=== PATIENT | female | born 1945 | race Caucasian/White ===

== ENCOUNTER 2022-04-08 13:55 | Outpatient (RCR) | payer MEDICARE, SELFPAY ==
--- NOTE | 2022-04-06 10:26 | ONC.NURNOTE ---
Authorization: User: Marie Swensondiegosahilsoledad Date: 12/22/21 08:45 Type: Eligibility Determination Note... Request received from [facility] for prior authorization of Robert [id number]. Patient carries Medicare as primary insurance. Per CMS.gov no prior authorization is required for Robert. Services are based on medical necessity and follows Medicare guidelines.
[2022-04-08 14:09] VITALS: BP 148/75; PULSE 71; RESP 16; TEMP 36.1; O2SAT 98
[2022-04-08] MEDS: VEDOLIZUMAB 300 MG, TUBING SECONDARY 1 EACH in 0.9 % SODIUM CHLORIDE 250 ml 250 ML 510 MG IVPB (14:35)
== END 2022-04-26 23:59 | disposition home or self-care (01) ==
LOC: CCIC 13:55
PROVIDERS: PCP Family Medicine; Visit Provider Clinical Nurse Specialist
DX: K51.90 Ulcerative colitis, unspecified, without complications (principal)
CPT/HCPCS: 96365; J3380; J7050

== ENCOUNTER 2022-04-20 08:54 | Outpatient (CLI) | payer MEDICARE, SELFPAY ==
[2022-04-20 16:16] LABS: Albumin* 4.4 g/dL (3.3-5.0)
[2022-04-20 16:17] LABS: Chloride* 101 mmol/L (96-114); Sodium* 139 mmol/L (135-149)
[2022-04-20 16:19] LABS: Aspartate Amino Transferase* 34 U/L (12-35); Bilirubin Total* 0.2 mg/dL (0.1-1.5); Carbon Dioxide* 32 mmol/L (20-32); Creatinine* 1.3 mg/dL (0.5-1.5); Estimated Glomerular Filt Rate 42 ml/min
[2022-04-20 16:20] LABS: Alanine Aminotransferase* 31 U/L (4-35); Alkaline Phosphatase* 70 U/L (40-150); Blood Urea Nitrogen* 49 mg/dL (7-30); Calcium* 9.9 mg/dL (8.4-10.6); Glucose* 113 mg/dL (60-115); Total Protein* 7.2 g/dL (6.0-8.3)
== END 2022-04-20 08:55 | disposition home or self-care (01) ==
PROVIDERS: PCP Family Medicine; Visit Provider Family Medicine
DX: E03.9 Hypothyroidism, unspecified (principal); N18.30 Chronic kidney disease, stage 3 unspecified; I10 Essential (primary) hypertension; R73.03 Prediabetes
CPT/HCPCS: 80053; 84443

== ENCOUNTER 2022-06-09 14:29 | Outpatient (CLI) | payer MEDICARE, SELFPAY ==
[2022-06-09 17:47] LABS: Chloride* 102 mmol/L (96-114); Potassium* 4.6 mmol/L (3.6-5.1); Sodium* 140 mmol/L (135-149)
[2022-06-09 17:50] LABS: Blood Urea Nitrogen* 44 mg/dL (7-30); Calcium* 9.5 mg/dL (8.4-10.6); Carbon Dioxide* 29 mmol/L (20-32); Creatinine* 1.4 mg/dL (0.5-1.5); Estimated Glomerular Filt Rate 39 ml/min; Glucose* 116 mg/dL (60-115)
== END 2022-06-09 14:30 | disposition home or self-care (01) ==
LOC: NFLDREF 14:30
PROVIDERS: PCP Family Medicine; Visit Provider Family Medicine
DX: I10 Essential (primary) hypertension (principal); N18.32 Chronic kidney disease, stage 3b
CPT/HCPCS: 80048

== ENCOUNTER 2022-06-16 10:14 | Outpatient (CLI) | payer MEDICARE, SELFPAY | END 2022-06-16 10:15 | disposition home or self-care (01) | LOC: NFLDREF 06-26 09:49 | PROVIDERS: PCP Family Medicine; Visit Provider Family Medicine | DX: Z20.822 Contact with and (suspected) exposure to COVID-19 (principal) | CPT/HCPCS: 87635 ==

== ENCOUNTER 2022-06-17 07:14 | Day surgery (SDC) | payer MEDICARE, SELFPAY ==
[2022-06-17] VITALS (29 sets, daily range): BP systolic 103–175; BP diastolic 63–90; PULSE 55–86; RESP 11–18; TEMP 35.3–36.4; O2SAT 91–97; BMI 28.0
[2022-06-17] MEDS: SODIUM CHLORIDE 0.9 % (FLUSH) 10 ML SYRINGE IVF (08:25)
[2022-06-17] MEDS: CELECOXIB 200 MG CAPSULE PO ×2 (08:25→20:18)
--- NOTE | 2022-06-17 08:28 | SUR.PREOP ---
Patient took home acetaminophen at 0600 06/17. No additional doses given preoperatively. Patient declined 10 mg Oxycodone due to previously taking on an empty stomach resulting in an upset stomach.
[2022-06-17] MEDS: LACTATED RINGERS 1000 ML 1,000 ML 100 ML IV ×2 (08:30→11:15)
[2022-06-17] MEDS: MIDAZOLAM HCL 1 MG/ML inj IVP (09:32)
[2022-06-17] MEDS: fentaNYL 100 MCG/2 ML inj IVP (09:32)
--- NOTE | 2022-06-17 09:41 | SUR.PREOP ---
TIME?OUT:?0930 PT/RN/MDA?VERIFICATION?OF?SURGICAL?SITE,?PROCEDURE,?AND?CONSENT OBTAINED?PRIOR?TO?INVASIVE?PROCEDURE.
[2022-06-17] MEDS: CEFAZOLIN 2 GM in 0.9 % SODIUM CHLORIDE Mini-bag 100 ML IVPB ×2 (10:10→16:29)
--- NOTE | 2022-06-17 10:24 | CRLHL7_ITS ---
For Patients: As a result of the Cures Act, medical imaging exams and procedure reports are released immediately into your electronic medical record. You may view this report before your referring provider. If you have questions, please contact your health care provider. INDICATION: Post operative left total knee arthroplasty TECHNIQUE: Knee radiograph 2 views left COMPARISON: None FINDINGS: Bone: No acute fractures or aggressive bone lesions are identified. Joint: The patient is status post a total knee arthroplasty with patellar resurfacing. No significant knee effusion is seen. Soft tissue: Anterior skin, subcutaneous gas and joint gas are present from recent surgery. No radiopaque foreign bodies are seen. IMPRESSION: 1. There is an unremarkable postoperative appearance of the knee arthroplasty. Dictated by: Suresh Ahn MD @ 06/17/2022 13:42:10 (Electronically Signed)
--- NOTE | 2022-06-17 10:46 | P.NB_ITS ---
Nerve Block Nerve Block Time Seen by Provider: 09:30 Date Seen: 06/17/22 Type of block requested by surgeon for post-operative analgesia: adductor canal Time out performed: Yes Verification of patient name: Yes Verification of date of : Yes Site marking: site marked Name of person performing procedure: Dereck Continuous monitoring Was continuous monitoring of O2 sat, B/P, vehicle monitor technician, recorded every 15 minutes?: Yes Procedure Checklist: sterile prep, needles and gloves Ultrasound guided. Images saved: Yes Medications given in 5ml increments after negative aspiration: Ropivicaine %: 0.5 mL: 20 Needle gauge: 20 Decadron (mg): 10 Precedex (mcg): 25 Patient tolerated procedure well: Yes Additional comments: Needle noted adjacent to nerve Block Charges Block Charge (with Pro Fee): Femoral Nerve Use of Ultrasound Machine for Block: Yes- US Guidance/pain block
--- NOTE | 2022-06-17 10:46 | P.NB_ITS ---
Nerve Block Nerve Block Time Seen by Provider: 09:30 Date Seen: 06/17/22 Type of block requested by surgeon for post-operative analgesia: geniculars Side: left Time out performed: Yes Verification of patient name: Yes Verification of date of : Yes Site marking: site marked Name of person performing procedure: Dereck Continuous monitoring Was continuous monitoring of O2 sat, B/P, monitor car operator, recorded every 15 minutes?: Yes Procedure Checklist: sterile prep, needles and gloves Medications given in 5ml increments after negative aspiration: Ropivicaine %: 0.5 mL: 9 Needle gauge: 25 Patient tolerated procedure well: Yes Block Charges Block Charge (with Pro Fee): Genicular Nerve Block Use of Ultrasound Machine for Block: No
--- NOTE | 2022-06-17 11:37 | P.ORPRC_ITS ---
Procedure Note Date of procedure: 06/17/22 Procedure: PREOPERATIVE DIAGNOSIS: 1. Left knee osteoarthritis, primary, severe POSTOPERATIVE DIAGNOSIS: 1. Left knee osteoarthritis, primary, severe PROCEDURE: 1. Left total knee arthroplasty SURGEON: Billy Gilbert MD. PRODUCT SUPPORT SPECIALIST: Germán Ribeiro PA-C - Of note, a skilled car rental sales assistant was critical for this case to aid in patient positioning, tissue retraction, limb manipulation/positioning, and closure. ANESTHESIA: Spinal anesthetic EBL: 50ml IMPLANTS: DePuy J&J all cemented TKA - Attune PS femur size 5 narrow, size 3 tibia, 5 mm poly spacer, 35 mm patella TOURNIQUET: 90 min at 300 torr COMPLICATIONS: None evident INDICATIONS: The patient is a pleasant 76-year-old female who has experienced severe left knee pain and difficulty bearing weight. Workup included x-rays which revealed severe osteoarthrosis in the knee. Given the deformity, the dysfunction, and the pain, as well as the failure of nonoperative management, recommendation was made for surgery. FINDINGS: Full-thickness extreme patellofemoral cartilage loss, significant medial compartment cartilage loss as well into a lesser degree lateral compartment. Tricompartmental osteophytes. Large Bustamante cyst. DESCRIPTION OF PROCEDURE: Following a thorough discussion of risks, benefits, and alternatives consent was obtained and the left knee was marked. The patient was brought to the operating room and placed supine on the operating table. Induction of anesthesia was undertaken. 1 g IV Ancef and 1 g tranexamic acid was administered within 1 hr of incision preoperatively. Proper time-out was performed identifying proper patient, site, procedure. The operative extremity was prepped and draped in the appropriate sterile fashion using ChloraPrep after the patient was positioned supine with all bony prominences well padded. A longitudinal, anterior, midline skin incision was made starting approximately 3cm proximal to the superior pole of the patella and advanced distal to the tibial tubercle. A median parapatellar arthrotomy was created. A medial subperiosteal sleeve was created with knife, solorzano elevator and curved osteotome. The retropatellar fatpad was resected and the synovium in the suprapatellar pouch excised to visualize the anterior femoral cortex. Femoral preparation was performed via an intramedullary guide. Step drill allowed access into the femoral canal. The distal cutting guide was placed with 6 ? of valgus and 10 mm cut on the distal femur. Femur was sized using a posterior referencing guide in 3? of external rotation. This found have a best fit with the sizing noted above. The 4 in 1 cutting block was then placed, and the distal femur shaped accordingly. The box cut was then created and the trial implant inserted to confirm appropriate fit. We turned our attention to the proximal tibia. Extramedullary guide was utilized for cutting with the goal of being 90 degree cut from the mechanical axis of the tibia in the varus/valgus plane utilizing tibial crest as the prima ry alignment. Initially a 3 mm resection was performed from the medial tibial plateau. Ultimately, balancing was achieved in both flexion and extension in both varus and valgus. The knee was able to achieve full extension as well comfortably. The patella was initially measured and found have a thickness of 19 mm. It was resected back to approximately 14 mm. It was sized to be a best fit with as noted above. This was drilled, trial placed. All trials were placed and found to have an excellent stability and balance. At this stage, trial implants were removed, the knee was thoroughly irrigated with normal saline, and the cement was mixed. After irrigation, the knee was thoroughly dried, and cement placed, with the real tibial and femoral implants placed along with the patella. Trial poly spacer was placed and confirmed to have excellent range of motion and full extension, and the real poly spacer opened and inserted. All extra cement was removed, and a 3 min Betadine soak performed. Finally, a final irrigation round with normal saline was performed. Closure performed with 0 PDS and #0 Stratafix for the quad tendon/retinaculum. 2-0 Vicryl/Stratafix for the subcutaneous and 4-0 Monocryl for subcuticular closure. Dressings were applied and the patient was awoken from anesthesia after the tourniquet deflated and transferred the PACU in stable condition. A skilled car rental sales assistant was critical for this case to aid in patient positioning, tissue retraction, bone exposure, limb manipulation/positioning, patient safety, and closure. PLAN: 1. Weight bear as tolerated operative extremity. 2. 23 hr perioperative antibiotics. 3. Ice. 4. PT/OT consults for ambulation assistance/mobility education. 5. Social work consult for discharge planning. 6. DVT prophylaxis with at SCDs, Benjy Hose, and aspirin twice daily.
--- NOTE | 2022-06-17 12:29 | W.ANESCHARGE ---
Anesthesia Charges Start Date/Time Anesthesia Start Date: 06/17/22 Anesthesia Start Time: 09:54 Stop Date/Time Anesthesia Stop Date: 06/17/22 Anesthesia Stop Time: 12:28 Summary Emergency: No Extremes of Age: Over 68-CPT [id number]
--- NOTE | 2022-06-17 12:38 | W.ANESCHARGE ---
Anesthesia Charges Start Date/Time Anesthesia Start Date: 06/17/22 Anesthesia Start Time: 09:54 Stop Date/Time Anesthesia Stop Date: 06/17/22 Anesthesia Stop Time: 12:28 Summary Emergency: No Extremes of Age: Over 68-CPT [id number]
--- NOTE | 2022-06-17 14:34 | P.IMCN_ITS ---
Date of Consult Patient: [facility] Patient Consult date: 06/17/22 Requesting Physician: Orthopedics Primary Care Provider: Namrata Burgess MD Consult Narrative Reason for consult: Postop: HTN, ulcerative colitis, renal lithiasis, hypothyroidism Narrative: Petra Paris is a 76 year old woman who underwent an elective left total knee arthroplasty today with Dr. Billy Gilbert for management of severe, end- stage left osteoarthritis. No obvious perioperative complications. Estimated blood loss 50 mL. Patient denies chest heaviness, pressure, tightness, or pain. Denies dyspnea at rest, paroxysmal nocturnal dyspnea, orthopnea. Denies syncope or near-syncope. Denies orthostasis. Denies palpitations or fluttering. Denies epigastric pain or any other abdominal pain. Denies dyspepsia. Denies nausea vomiting. States she is thirsty and hungry. States she has not had anything to eat or drink since yesterday. Denies fevers, rigors, diaphoresis. No recent trauma, injury, or travel. No blood loss of any sort. Bowel and bladder function are satisfactory. Denies polyuria, polydipsia, polyphagia. Denies dysuria, urgency, frequency, hematuria. Denies diarrhea or constipation. No recent focal motor neurologic deficits. Review of Systems Status of ROS: Reports: 10 or more systems reviewed and unremarkable except as noted in History and below Narrative: I reviewed the preoperative note and recommendations. Patient i ndicates she adhered to these recommendations per her primary care physician. She designates her son, Mathieu Rendon, as her power of health care attorney for health should that be required. His cell phone number is [phone]. Additionally after discussion with her about resuscitation status she indicates to me unequivocally her desire for DNR DNI resuscitation status. 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) Prediabetes (12/2016) Stage 3 chronic kidney disease (2016) Ulcerative colitis (2015) Surgical History (Updated 06/17/22 @ 14:43 by Nathaniel Anderson MD) History of appendectomy (1965) History of closure of ileostomy (10/05/19) History of colectomy (02/2018) History of colonoscopy (2016) History of hand surgery (2010) History of hysteroscopy (2015) History of repair of pyloric stenosis (1944) History of thumb surgery (2010) History of tonsillectomy History of total right knee replacement (2009) Status post left knee replacement Family History Father Prostate cancer Sister Type 2 diabetes mellitus Brother Colon cancer, Onset Age: 50 Other Bladder cancer Social History Narrative: Currently lives in with adult son , 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 [employer], 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, 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, 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 Non-smoker Rarely consumes alcohol Smoking Status: Never smoker Do you use any of these nicotine containing products: None How often do you have a drink containing alcohol: monthly or less How often do you have six or more drinks on one occasion: Never AUDIT-C Alcohol total score: 1 Non-prescribed substance use: denies use Caffeine: Yes (1 cup coffee/day) Are you using contraception or practicing any form of control: No Meds Home Medications and Allergies Home Medications Medication Instructions Recorded Confirmed Type calcium cit 250 mg-ergocalciferol 2 tab PO DAILY 04/07/22 06/17/22 History (vit D2) 2.5 mcg (100 unit) tablet (Castro-Citrate) ferrous sulfate 325 mg (65 mg 325 mg PO DAILY 04/07/22 06/17/22 History iron) tablet multivitamin 1 tab PO DAILY 04/07/22 06/17/22 History turmeric 1 cap PO DAILY 04/07/22 06/15/22 History carboxymethylcellulose sodium 0.5 1 drp ophthalmic (eye) BID PRN 05/05/22 06/17/22 History % eye drops (Refresh Tears) vedolizumab 300 mg intravenous 300 mg IV Q4W 05/05/22 06/17/22 History solution acetaminophen 650 mg 1,300 mg PO Q8H 06/15/22 06/17/22 History tablet,extended release (8 Hour Pain Reliever) levothyroxine 100 mcg capsule 100 mcg PO DAILY 06/15/22 06/17/22 History Allergies Allergy/AdvReac Type Severity Reaction Status Date / Time lisinopril Allergy Unknown Dizziness Verified 06/09/22 13:57 pneumococcal 7-valent Allergy Unknown Verified 06/17/22 13:52 conjugate to Sulfa (Sulfonamide Allergy Unknown Rash Verified 06/17/22 13:52 Antibiotics) Exam Narrative: Exam Narrative: Appears comfortable. No acute distress. Alert, oriented to self, place, time, situation. Friendly, articulate, cooperative. Mood and affect are congruent. Neck is supple. Midline trachea. No JVD, hepatojugular reflux, or carotid bruits. Lungs are clear to auscultation without wheezing, rhonchi, or rales. Heart tones with regular rhythm, normal S1-S2, without murmur, gallop, or rub. Abdomen with active bowel sounds, soft, nontender. No rebound or guarding. Extremities without edema. No focal motor neurologic deficits. Const: Vital Signs, click to edit/add: Vital Signs - 24 hr 06/17/22 08:30 06/17/22 09:30 06/17/22 09:35 Temperature 97.6 F Pulse Rate 60 61 58 L Respiratory Rate 18 16 14 Blood Pressure 151/76 H 158/74 H 161/77 H Pulse Oximetry 96 96 97 Oxygen Delivery Me thod Room Air Nasal Cannula Nasal Cannula Oxygen Flow Rate 3 5 06/17/22 09:40 06/17/22 09:45 06/17/22 09:50 Temperature Pulse Rate 61 63 62 Respiratory Rate 12 12 12 Blood Pressure 135/69 130/72 129/66 Pulse Oximetry 93 93 96 Oxygen Delivery Me thod Nasal Cannula Nasal Cannula Nasal Cannula Oxygen Flow Rate 5 5 3 06/17/22 12:23 06/17/22 12:45 06/17/22 12:25 Temperature 96.4 F L 96.4 F L 96.4 F L Pulse Rate 65 59 L 64 Respiratory Rate 11 L 12 12 Blood Pressure 111/63 103/69 109/65 Pulse Oximetry 95 95 94 Oxygen Delivery Me thod Nasal Cannula Nasal Cannula Oxygen Flow Rate 4 4 06/17/22 12:30 06/17/22 12:35 06/17/22 12:40 Temperature 96.4 F L 96.4 F L 96.4 F L Pulse Rate 59 L 58 L 59 L Respiratory Rate 12 12 12 Blood Pressure 111/65 118/66 121/71 Pulse Oximetry 94 94 95 Oxygen Delivery Me thod Nasal Cannula Nasal Cannula Nasal Cannula Oxygen Flow Rate 4 4 4 06/17/22 12:50 06/17/22 12:55 06/17/22 13:00 Temperature 96.4 F L 96.4 F L 96.4 F L Pulse Rate 58 L 56 L 59 L Respiratory Rate 15 14 14 Blood Pressure 123/71 128/64 131/74 Pulse Oximetry 94 92 91 Oxygen Delivery Me thod Nasal Cannula Room Air Room Air Oxygen Flow Rate 4 0 0 06/17/22 13:05 Temperature 96.8 F L Pulse Rate 60 Respiratory Rate 16 Blood Pressure 136/73 Pulse Oximetry 92 Oxygen Delivery Me thod Room Air Oxygen Flow Rate 0 Imaging Left knee x-ray: Attestation: I have reviewed the pertinent imaging results. Radiologist's impression: 1. There is an unremarkable postoperative appearance of the knee arthroplasty. Assessment and Plan Assessment and plan (1) Status post left knee replacement: Problem comment: 06/17/2022, Dr. Billy Gilbert, [facility] Status: Acute (2) Osteoarthritis of left knee: Status: Acute (3) Hypertension: Status: Acute (4) Generalized osteoarthritis: Problem comment: uses gabapentin Status: Acute (5) Hypothyroidism: Status: Acute (6) Osteoporosis: Status: Acute (7) Prediabetes: Problem comment: cleared up now Status: Chronic (8) Stage 3 chronic kidney disease: Status: Chronic (9) Ulcerative colitis: Status: Acute (10) Urolithiasis: Status: Acute (11) Obstructive sleep apnea syndrome: Problem comment: Mild. See scanned Accu[facility] Sleep Study dated 05/27/16 Status: Acute Plan 1. I reviewed my impression with the patient. 2. Answered the patient's questions to her satisfaction. 3. Agree with perioperative IV antibiotic prophylaxis. 4. Agree with postoperative venous thromboembolism prophylaxis. 5. Continue with her supportive medications, including her amlodipine for treating her hypertension, her levothyroxine for treating her primary hypothyroidism, and a potassium citrate use for treating her urolithiasis.. 6. The vedolizumab she takes every 4 weeks to treat the ulcerative colitis was last administered about 2 weeks ago and does not need to be readministered until about 2 weeks from now. 7. No need to monitor her blood sugars. 8. Patient agreeable to above stated plans and recommendations. 9. Will follow the patient while she is in the hospital under the care of the orthopedic surgery team.
[2022-06-17] MEDS: LACTATED RINGERS 1000 ML 1,000 ML 75 ML IV (14:45)
[2022-06-17] MEDS: GABAPENTIN 100 MG CAPSULE PO (15:27)
[2022-06-17] MEDS: OXYCODONE 5 MG TABLET PO ×3 (15:32→22:30)
[2022-06-17] MEDS: ACETAMINOPHEN 500 MG TABLET 1000 MG PO (17:48)
--- NOTE | 2022-06-17 18:39 | PC.NURSE ---
Shift Summary: Patient pleasant and cooperative. Up with one assist, walker and gait belt. Arrived to room @ 1322. Vitals stable and WNL. pain well controlled with continuous ice and medication. Tolerating regular diet, denies nausea. Dressing over left knee dry and intact.
[2022-06-17] MEDS: GABAPENTIN 100 MG CAPSULE 200 MG PO (20:18)
[2022-06-17] MEDS: SENNOSIDES 1 TAB TABLET 2 TAB PO (20:18)
[2022-06-17] MEDS: ASPIRIN 81 MG TABLET EC PO (20:18)
[2022-06-17] MEDS: HYDROmorphone 0.5 mg/0.5 ml inj IVP (21:05)
[2022-06-18] MEDS: ACETAMINOPHEN 500 MG TABLET 1000 MG PO ×2 (00:29→06:30)
[2022-06-18] MEDS: OXYCODONE 5 MG TABLET PO ×6 (00:30→13:19)
[2022-06-18] MEDS: CEFAZOLIN 2 GM in 0.9 % SODIUM CHLORIDE Mini-bag 100 ML IVPB ×2 (00:30→08:05)
[2022-06-18 03:00] VITALS: BP 167/79; PULSE 79; RESP 20; TEMP 36.5; O2SAT 95
--- NOTE | 2022-06-18 05:28 | PC.NURSE ---
[id number]: Patient cooperative with cares. Rates pain 4-7/10. PRN Dilaudid and Oxycodone administered for relief. Cryo cuff continuous. Dressing to L.knee C/D/I. CMS intact. A1,walkerGB. Denies N/V. Eating and voiding. Patient expressed concern about going home w/o proper support. SW to follow up today.
[2022-06-18] MEDS: LEVOTHYROXINE 100 MCG TABLET PO (06:30)
[2022-06-18 06:59] LABS: Basophils Percent Auto 0.1 % (0.0-3.0); Eosinophils Percent Auto 0.1 % (0.0-7.0); Hematocrit 40.2 % (33.0-51.0); Hemoglobin* 13.2 gm/dL (12.0-16.0); Immature Granulocytes Abs Auto 0.02 K/uL (0.00-0.30); Lymphocytes Percent Auto 6.8 % (20-44); Mean Corpuscular HGB Conc 33 gm/dL (32-36); Mean Corpuscular Hemoglobin 31 pg (26-34); Mean Corpuscular Volume 95 fL (80-100); Monocytes Percent Auto 10.8 % (0.0-11.0); Platelet Count* 182 K/uL (140-440); RDW Coefficient of Variation % 12.9 % (11.5-15.5); Red Blood Count 4.24 m/uL (4.00-5.20); White Blood Count* 12.49 K/uL (4.50-11.00)
[2022-06-18 07:00] VITALS: BP 143/89; PULSE 73; RESP 20; TEMP 36.4; O2SAT 96
[2022-06-18 07:00] LABS: Slide Review Reflex No
[2022-06-18 07:08] LABS: Potassium* 5.1 mmol/L (3.6-5.1); Sodium* 138 mmol/L (135-149)
[2022-06-18 07:11] LABS: Blood Urea Nitrogen* 32 mg/dL (7-30); Est. Creatinine Clearance* 38.35; Estimated Glomerular Filt Rate 58 ml/min
[2022-06-18] MEDS: POTASSIUM CITRATE 10 MEQ TABLET.ER 20 MEQ PO (07:54)
[2022-06-18] MEDS: AMLODIPINE 5 MG TABLET PO (08:15)
[2022-06-18] MEDS: ASPIRIN 81 MG TABLET EC PO (08:15)
[2022-06-18] MEDS: CELECOXIB 200 MG CAPSULE PO (08:15)
[2022-06-18] MEDS: GABAPENTIN 100 MG CAPSULE PO (08:16)
[2022-06-18] MEDS: SODIUM CHLORIDE 0.9 % (FLUSH) 10 ML SYRINGE 5 ML IVF (08:17)
[2022-06-18] MEDS: SENNOSIDES 1 TAB TABLET 2 TAB PO (08:17)
--- NOTE | 2022-06-18 09:53 | CRLHL7_ITS ---
For Patients: As a result of the Cures Act, medical imaging exams and procedure reports are released immediately into your electronic medical record. You may view this report before your referring provider. If you have questions, please contact your health care provider. INDICATION: s/p TKR yesterday. pain/swelling COMPARISON: None. TECHNIQUE: A compression venous ultrasound exam was performed of the left lower extremity using navarro-scale imaging, color Doppler and spectral Doppler analysis. FINDINGS: Sonographic imaging of the left lower extremity demonstrates normal compressibility and color Doppler venous blood flow within the common femoral vein, deep femoral vein, and the proximal greater saphenous vein. Within the thigh, the femoral vein is patent and compressible. At a lower level, the popliteal and posterior tibial veins also show normal compressibility and color Doppler venous blood flow. Limited imaging of the contralateral groin demonstrates a normal spectral waveform and color Doppler venous blood flow within the right common femoral vein. IMPRESSION: Normal venous ultrasound exam. No evidence of deep vein thrombosis within the left lower extremity. Dictated by Parvez Brooks MD @ 06/18/2022 11:47:16 AM (Electronically Signed)
--- NOTE | 2022-06-18 09:56 | PM.ORPN ---
Subjective Subjective Date Seen: 06/18/22 Principal diagnosis: Status postoperative day 1 left total knee Interval history: Patient reports doing well. No acute events over night. Pain managed with scheduled /PRN medications and ice. Reports that both of her lower extremities were numb after surgery, making it difficult for her to get out of bed. Right has improved, there is still some decreased motor in the left lower extremity residual from the nerve block. DVT prophylaxis 81 mg aspirin by mouth twice daily, bilateral knee high Benjy stockings, and SCDs. Reports dizziness when up and walking. Denies fevers, chills, aches, N/V, CP, SOB/CAON, tachycardia. Comments that she does not feel that she would be successful at home. She has had multiple conversations with social work prior to surgery regarding long term stay postoperatively. She says that while she lives with her adult son, they were cannot available to help her. She says she would pay [id number] for the long term. Ortho Exam Narrative Exam Narrative: General: Well-developed, well-nourished, A&Ox 3, no apparent acute distress. Pulmonary: Breathing pattern regular, even, without apparent distress or audible wheeze present. -Patient appears comfortable; no apparent acute distress -Alert and oriented times 3 -Operative knee moderately swollen, thigh-high moderately swollen, calf moderately swollen; soft, supple tissues; no ecchymosis; no erythematous streaking Warmth appropriate -Surgical dressing clean, dry, intact; no drainage -left calf is quite tender to palpation, squeeze, especially mid gastroc proximal lower leg; there is moderate swelling; no, edema, erythema, discoloration, warmth, or palpable cords -2+ DP/PT pulses, intact dermatomes and myotomes distally (5/5 strength) Const Vital Signs, click to edit/add: Vital Signs - 24 hr 06/17/22 12:23 06/17/22 12:45 06/17/22 12:25 Temperature 96.4 F L 96.4 F L 96.4 F L Pulse Rate 65 59 L 64 Pulse Rate [Right Pulse Oximeter] Respiratory Rate 11 L 12 12 Blood Pressure 111/63 103/69 109/65 Blood Pressure [Left Arm] Pulse Oximetry 95 95 94 Oxygen Delivery Method Nasal Cannula Nasal Cannula Oxygen Flow Rate 4 4 06/17/22 12:30 06/17/22 12:35 06/17/22 12:40 Temperature 96.4 F L 96.4 F L 96.4 F L Pulse Rate 59 L 58 L 59 L Pulse Rate [Right Pulse Oximeter] Respiratory Rate 12 12 12 Blood Pressure 111/65 118/66 121/71 Blood Pressure [Left Arm] Pulse Oximetry 94 94 95 Oxygen Delivery Method Nasal Cannula Nasal Cannula Nasal Cannula Oxygen Flow Rate 4 4 4 06/17/22 12:50 06/17/22 12:55 06/17/22 13:00 Temperature 96.4 F L 96.4 F L 96.4 F L Pulse Rate 58 L 56 L 59 L Pulse Rate [Right Pulse Oximeter] Respiratory Rate 15 14 14 Blood Pressure 123/71 128/64 131/74 Blood Pressure [Left Arm] Pulse Oximetry 94 92 91 Oxygen Delivery Method Nasal Cannula Room Air Room Air Oxygen Flow Rate 4 0 0 06/17/22 13:05 06/17/22 13:45 06/17/22 14:30 Temperature 96.8 F L 95.6 F L 97.5 F L Pulse Rate 60 Pulse Rate [Right Pulse Oximeter] 57 L 56 L Respiratory Rate 16 18 18 Blood Pressure 136/73 Blood Pressure [Left Arm] 145/75 H 154/81 H Pulse Oximetry 92 95 95 Oxygen Delivery Method Room Air Room Air Room Air Oxygen Flow Rate 0 06/17/22 13:22 06/17/22 14:00 06/17/22 14:15 Temperature 95.6 F L 95.6 F L 95.7 F L Pulse Rate 58 L Pulse Rate [Right Pulse Oximeter] 59 L 55 L Respiratory Rate 18 18 18 Blood Pressure Blood Pressure [Left Arm] 145/75 H 153/84 H 154/67 H Pulse Oximetry 94 95 Oxygen Delivery Method Room Air Room Air Room Air Oxygen Flow Rate 06/17/22 15:00 06/17/22 15:30 06/17/22 16:30 Temperature 95.9 F L 96.1 F L 96 F L Pulse Rate Pulse Rate [Right Pulse Oximeter] 66 68 67 Respiratory Rate 16 18 18 Blood Pressure Blood Pressure [Left Arm] 159/82 H 175/83 H 145/84 H Pulse Oximetry 94 94 96 Oxygen Delivery Method Room Air Room Air Room Air Oxygen Flow Rate 06/17/22 17:30 06/17/22 18:32 06/17/22 19:00 Temperature 96.2 F L 97.1 F L 97.6 F Pulse Rate Pulse Rate [Right Pulse Oximeter] 66 86 70 Respiratory Rate 16 18 18 Blood Pressure Blood Pressure [Left Arm] 148/79 H 147/90 H 147/71 H Pulse Oximetry 95 94 93 Oxygen Delivery Method Room Air Room Air Room Air Oxygen Flow Rate 06/17/22 19:30 06/17/22 23:00 06/18/22 03:00 Temperature 97.6 F 97.5 F L 97.7 F Pulse Rate Pulse Rate [Right Pulse Oximeter] 70 78 79 Respiratory Rate 18 18 20 Blood Pressure Blood Pressure [Left Arm] 147/71 H 153/74 H 167/79 H Pulse Oximetry 93 94 95 Oxygen Delivery Method Room Air Room Air Room Air Oxygen Flow Rate 0 0 06/18/22 07:00 06/18/22 07:00 Temperature 97.5 F L Pulse Rate Pulse Rate [Right Pulse Oximeter] 73 73 Respiratory Rate 20 20 Blood Pressure Blood Pressure [Left Arm] 143/89 H Pulse Oximetry 96 Oxygen Delivery Method Room Air Oxygen Flow Rate 0 Assessment and Plan Assessment and plan (1) Status post left knee replacement: Problem details: 1. POD left Total Knee Arthroplasty Status: Acute (2) Osteoarthritis of left knee: Status: Acute (3) Hypertension: Status: Acute (4) Generalized osteoarthritis: Problem details: uses gabapentin Status: Acute (5) Hypothyroidism: Status: Acute (6) Osteoporosis: Status: Acute (7) Prediabetes: Problem details: cleared up now Status: Chronic (8) Stage 3 chronic kidney disease: Status: Chronic (9) Ulcerative colitis: Status: Acute (10) Urolithiasis: Status: Acute (11) Obstructive sleep apnea syndrome: Problem details: Mild. See scanned [facility] Sleep Study dated 05/27/16 Status: Acute Plan - Complete 23 hour perioperative antibiotics. - PT/OT consult for education and assistance. - Social work consult for discharge planning - I spoke with them, they will meet with her today to discuss nursing placement. Likely will not receive coverage for this as there is no clear medical need for her to remain in the hospital postoperatively. The patient understands that she would pay out of pocket if she chooses short-term stay in a long term post hospital discharge - Prescribed analgesics as needed - DVT prophylaxis: 81 mg aspirin by mouth twice daily, bilateral knee high Benjy Hose stockings and SCDs - Due to the amount of pain within his left calf and swelling, we will order an ultrasound today to assess for DVT. - Anticipation is for discharge to SNF versus home in the next day or to if the patient remains medically stable, pain is controlled, and they are safe with mobilization.
--- NOTE | 2022-06-18 10:03 | PM.DS1 ---
DS: Providers Provider Date Seen: 06/18/22 Date of admission: med/surg recovery 06/17/22 Primary care physician: Namrata Burgess MD Consults: 06/17/22 13:44 Consult to Occupational Therapy [CONS] Routine Comment: Reason(s) for OT Consult:: ADLs Prior to Discharge Any Restrictions?:: See Comment Comment: See nursing activity order for any restrictions. Consult to Physical Therapy [CONS] Routine Comment: Ambulate in the hector today. Reason(s) for PT Consult:: TKA [place] Protocol POD#0 Any Restrictions?:: See Comment Comment: See nursing activity order for any restrictions. Consult to Physician [CONS] Routine Comment: Consulting Provider: Hospitalists Has provider been notified: No Consult to Erp Developer [CONS] Routine Comment: Reason for Consult:: Discharge Planning Needs Attending Physician on discharge: Billy Gilbert MD Date of Discharge: 06/18/22 DS: Diagnosis Discharge Diagnosis (1) Osteoarthritis of left knee: Status: Acute Problem details: Status post left total knee arthroplasty DS: Summary Hospital Course Hospital Course: The patient has a history of left knee osteoarthritis, primary, severe. After appropriate preoperative evaluation, the patient underwent left total knee arthroplasty. Postoperatively given anticoagulation for deep vein thrombosis prophylaxis. They progressed to PT/OT and were felt ready and prepared for discharge to SNF for further care and assistance. She has appropriate pain medication and anticoagulation medications Rx to her preferred pharmacy. Furthermore, U/S of the left lower extremity was negative for DVT. Status at Discharge Functional status at discharge: uses cane/walker Overall status at discharge: patient is not back to baseline Time Spent with Patient Time attestation: Total time spent providing and/or coordinating discharge services: Time spent: Greater than 30 minutes Exam Const: Vital Signs, click to edit/add: Vital Signs - 24 hr 06/17/22 12:23 06/17/22 12:45 06/17/22 12:25 Temperature 96.4 F L 96.4 F L 96.4 F L Pulse Rate 65 59 L 64 Pulse Rate [Right Pulse Oximeter] Respiratory Rate 11 L 12 12 Blood Pressure 111/63 103/69 109/65 Blood Pressure [Le ft Arm] Pulse Oximetry 95 95 94 Oxygen Delivery Me thod Nasal Cannula Nasal Cannula Oxygen Flow Rate 4 4 06/17/22 12:30 06/17/22 12:35 06/17/22 12:40 Temperature 96.4 F L 96.4 F L 96.4 F L Pulse Rate 59 L 58 L 59 L Pulse Rate [Right Pulse Oximeter] Respiratory Rate 12 12 12 Blood Pressure 111/65 118/66 121/71 Blood Pressure [Le ft Arm] Pulse Oximetry 94 94 95 Oxygen Delivery Me thod Nasal Cannula Nasal Cannula Nasal Cannula Oxygen Flow Rate 4 4 4 06/17/22 12:50 06/17/22 12:55 06/17/22 13:00 Temperature 96.4 F L 96.4 F L 96.4 F L Pulse Rate 58 L 56 L 59 L Pulse Rate [Right Pulse Oximeter] Respiratory Rate 15 14 14 Blood Pressure 123/71 128/64 131/74 Blood Pressure [Le ft Arm] Pulse Oximetry 94 92 91 Oxygen Delivery Me thod Nasal Cannula Room Air Room Air Oxygen Flow Rate 4 0 0 06/17/22 13:05 06/17/22 13:45 06/17/22 14:30 Temperature 96.8 F L 95.6 F L 97.5 F L Pulse Rate 60 Pulse Rate [Right Pulse Oximeter] 57 L 56 L Respiratory Rate 16 18 18 Blood Pressure 136/73 Blood Pressure [Le ft Arm] 145/75 H 154/81 H Pulse Oximetry 92 95 95 Oxygen Delivery Me thod Room Air Room Air Room Air Oxygen Flow Rate 0 06/17/22 13:22 06/17/22 14:00 06/17/22 14:15 Temperature 95.6 F L 95.6 F L 95.7 F L Pulse Rate 58 L Pulse Rate [Right Pulse Oximeter] 59 L 55 L Respiratory Rate 18 18 18 Blood Pressure Blood Pressure [Le ft Arm] 145/75 H 153/84 H 154/67 H Pulse Oximetry 94 95 Oxygen Delivery Me thod Room Air Room Air Room Air Oxygen Flow Rate 06/17/22 15:00 06/17/22 15:30 06/17/22 16:30 Temperature 95.9 F L 96.1 F L 96 F L Pulse Rate Pulse Rate [Right Pulse Oximeter] 66 68 67 Respiratory Rate 16 18 18 Blood Pressure Blood Pressure [Le ft Arm] 159/82 H 175/83 H 145/84 H Pulse Oximetry 94 94 96 Oxygen Delivery Me thod Room Air Room Air Room Air Oxygen Flow Rate 06/17/22 17:30 06/17/22 18:32 06/17/22 19:00 Temperature 96.2 F L 97.1 F L 97.6 F Pulse Rate Pulse Rate [Right Pulse Oximeter] 66 86 70 Respiratory Rate 16 18 18 Blood Pressure Blood Pressure [Le ft Arm] 148/79 H 147/90 H 147/71 H Pulse Oximetry 95 94 93 Oxygen Delivery Me thod Room Air Room Air Room Air Oxygen Flow Rate 06/17/22 19:30 06/17/22 23:00 06/18/22 03:00 Temperature 97.6 F 97.5 F L 97.7 F Pulse Rate Pulse Rate [Right Pulse Oximeter] 70 78 79 Respiratory Rate 18 18 20 Blood Pressure Blood Pressure [Le ft Arm] 147/71 H 153/74 H 167/79 H Pulse Oximetry 93 94 95 Oxygen Delivery Me thod Room Air Room Air Room Air Oxygen Flow Rate 0 0 06/18/22 07:00 06/18/22 07:00 Temperature 97.5 F L Pulse Rate Pulse Rate [Right Pulse Oximeter] 73 73 Respiratory Rate 20 20 Blood Pressure Blood Pressure [Le ft Arm] 143/89 H Pulse Oximetry 96 Oxygen Delivery Me thod Room Air Oxygen Flow Rate 0 DS: Data Data Completed and Pending Labs on day of discharge: Labs from last 24 hours 06/18/22 06/18/22 06:30 06:30 WBC 12.49 H RBC 4.24 Hgb 13.2 Hct 40.2 MCV 95 MCH 31 MCHC 33 RDW Coeff of Kelby 12.9 Plt Count 182 Neut % (Auto) 82.0 H Lymph % (Auto) 6.8 L [place] % (Auto) 10.8 Eos % (Auto) 0.1 Baso % (Auto) 0.1 Neut # (Auto) 10.20 H Lymph # (Auto) 0.80 L [place] # (Auto) 1.30 H Eos # (Auto) 0.00 Baso # (Auto) 0.00 Abs Immat Gran (auto) 0.02 Sodium 138 Potassium 5.1 BUN 32 H Creatinine 1.0 Estimated Creat Clear 38.35 Estimated GFR 58 Discharge Plan Discharge Disposition: Xfer Other Discharge Location: [facility] Discharging Surgeon: Billy Gilbert Follow-Up Appointment: 1 week PO with TOYA Prescriptions: New sennosides-docusate sodium [Senna-S] 8.6-50 mg tablet 1 - 4 tab-cap PO BID PRN (Reason: constipation) Qty: 60 0RF Rx Instructions: Hold medication if experiencing loose stools. aspirin 81 mg tablet,delayed release (DR/EC) 81 mg PO BID Qty: 60 0RF Rx Instructions: Medication to help prevent blood clots postoperatively; take TWICE daily. celecoxib 100 mg capsule 100 mg PO BID Qty: 60 0RF oxycodone 5 mg tablet 2.5 - 5 mg PO Q4-6H MDD 6 PRN (Reason: pain) Qty: 42 0RF Rx Instructions: Take as needed for postop pain: 2.5mg mild pain, 5mg moderate-severe pain; wean as tolerated. No Action amlodipine 5 mg tablet 5 mg PO DAILY Qty: 90 4RF potassium citrate 5 mEq (540 mg) tablet extended release 20 meq PO DAILY Qty: 360 3RF gabapentin 100 mg capsule 100 mg PO .ud Qty: 360 3RF Rx Instructions: 1 tablet in the morning, 1 tablet in the day, 2 tablets at bedtime carboxymethylcellulose sodium [Refresh Tears] 0.5 % drops 1 drp ophthalmic (eye) BID PRN multivitamin Tablet 1 tab PO DAILY ferrous sulfate 325 mg (65 mg iron) tablet 325 mg PO DAILY Castro-Citrate 250 mg-2.5 mcg (100 unit) tablet 2 tab PO DAILY turmeric 1 cap PO DAILY vedolizumab 300 mg recon soln 300 mg IV Q4W Rx Instructions: administer week 6 of treatment (Entivo) acetaminophen [8 Hour Pain Reliever] 650 mg tablet extended release 1,300 mg PO Q8H levothyroxine 100 mcg capsule 100 mcg PO DAILY Activity Level: Activity as Tolerated, Weight Bearing as Tolerated, Use Cane and Use Walker Activity Detail: Wound: ?Do not remove original dressing; we will remove this at first postop visit in 1 week. Only remove dressing if integrity is in question. ?No immersing wound in water; showering okay; light scrub with your hand and body soap, rinse, dab dry ?Sutures are under the skin, will dissolve; allow surgical glue to come off naturally; do not scrub the wound or apply ointments/lotions ?Call our office with any redness that streaks, excessive drainage from the wound, or wound gapping. Ice/Elevate: ?Ice as needed for swelling and discomfort (cryocuff or ice pack); elevate frequently above the heart IVETT socks: ?Wear for 1 month, remove for 1 hour 3 times per day ?These are frustrating to take on/off, but are important for blood clot prevention for 1 month after surgery Blood Clot Prevention (DVT): ?Medication: 81 mg aspirin by mouth twice daily (1 month) Driving: ?Do not drive while taking narcotic pain medication ?Anticipate 4-6 weeks no driving if operative leg is driving leg Dental: ?No elective dental work for 6 months post-op. If there is an urgent/emergent dental need, contact our office for an antibiotic prescription. Smoking/Alcohol: ?Do not smoke; do no drink alcohol especially when taking postoperative oral narcotic medication Seek Care from you Primary Care Provider if you experience the following issues in the postoperative phase and beyond: ?Bacterial infections such as: pneumonia, bacterial skin infection (cellulitis), UTI, high fever, chills unrelated to the operative body part - call your primary care physician urgently for treatment in hopes to protect your health and the metal implant. Referrals: ?PT, OT per patient preference - evaluate treat total knee arthroplasty protocol (gait training, ROM, ADLs) Follow up: ?Ortho surgeon follow-up in 6 weeks; repeat radiographs three views operative knee ?PA-C visit in 1 week *If there are any acute concerns regarding your surgery, please call our orthopedic clinic ([phone]) Discharge Diet: Regular Patient Instructions: Surgical Site Infections (DC) Forms: Work/Release Restrictions Follow-up: [facility], Physical Therapy [Other] - 06/19/22 7:30 am Namrata Burgess MD [Primary Care Provider] - (Schedule appointment as needed) Germán Ribeiro PA-C [Physician Negotiations Director] - 06/25/22 8:30 am Discharge Orders: Discharge Order (Routine); Ordered 06/18/22 Ordered By: Germán Ribeiro
[2022-06-18 11:00] VITALS: BP 138/71; PULSE 74; RESP 20; TEMP 36.6; O2SAT 95
--- NOTE | 2022-06-18 11:55 | PC.SOCIAL ---
Met with pt and son Mathieu to discuss discharge plans. Pt. is moving well but wants a SNF for short term rehab following LTKA. Pt. prefers [facility]. [facility] has a bed and can accept pt. today. Pt.'s son will transport. PAS completed #[id number].
[2022-06-18 12:33] VITALS: BP 136/73; PULSE 58; RESP 20; TEMP 36.4
--- NOTE | 2022-06-18 15:48 | PC.NURSE ---
Pt up with SBA, gait belt, and walker. Pain controlled with oxycodone per NOV. Denies chest pain, SOB, nausea. Participated in PT/OT. DC'd per pt request to [facility] for post op rehab. Cyrocuff to left knee. Bandage clean, dry, and intact. Pt DC'd to [facility] @ 1320 with son driving her to site.
--- NOTE | 2022-06-18 16:23 | P.DS_ITS ---
DS: Providers Provider Time Seen by Provider: 11:00 Date Seen: 06/18/22 Date of admission: 06/17/22 Primary care physician: Namrata Burgess MD Admitting Clinician: Billy Gilbert MD Consults: 06/17/22 13:44 Consult to Occupational Therapy [CONS] Routine Comment: Reason(s) for OT Consult:: ADLs Prior to Discharge Any Restrictions?:: See Comment Comment: See nursing activity order for any restrictions. Consult to Physical Therapy [CONS] Routine Comment: Ambulate in the hector today. Reason(s) for PT Consult:: TKA [place] Protocol POD#0 Any Restrictions?:: See Comment Comment: See nursing activity order for any restrictions. Consult to Physician [CONS] Routine Comment: Consulting Provider: Hospitalists Has provider been notified: No Consult to Call Center Support Consultant [CONS] Routine Comment: Reason for Consult:: Discharge Planning Needs Attending Physician on discharge: Billy Gilbert MD Date of Discharge: 06/18/22 DS: Diagnosis Discharge Diagnosis (1) Status post left knee replacement: Status: Acute Problem details: 1. POD left Total Knee Arthroplasty (2) Generalized osteoarthritis: Status: Acute Problem details: uses gabapentin (3) Coronary artery calcification seen on computed tomography: Status: Acute (4) Hypertension: Status: Acute (5) Hypothyroidism: Status: Acute (6) Obstructive sleep apnea syndrome: Status: Acute Problem details: Mild. See scanned AccuSom Sleep Study dated 05/27/16 (7) Osteoporosis: Status: Acute DS: Summary Hospital Course Hospital Course: The patient has a history of left knee osteoarthritis, primary, severe. After appropriate preoperative evaluation, the patient underwent left total knee arthroplasty. Postoperatively given anticoagulation for deep vein thrombosis prophylaxis. They progressed to PT/OT and were felt ready and prepared for discharge to SNF for further care and assistance. She has appropriate pain medication and anticoagulation medications Rx to her preferred pharmacy. Furthermore, U/S of the left lower extremity was negative for DVT. Status at Discharge Functional status at discharge: uses cane/walker Overall status at discharge: patient is progressing back to baseline Time Spent with Patient Time attestation: Total time spent providing and/or coordinating discharge services: Time spent: Greater than 30 minutes Exam Narrative: Exam Narrative: Appears comfortable.? No acute distress. Alert, oriented to self, place, time, situation.? Friendly, articulate, cooperative.? Mood and affect are congruent.? Neck is supple.? Midline trachea.? No JVD, hepatojugular reflux, or carotid bruits. Lungs are clear to auscultation without wheezing, rhonchi, or rales.? Heart tones with regular rhythm, normal S1-S2, without murmur, gallop, or rub.? Abdomen with active bowel sounds, soft, nontender.? No rebound or guarding.? Extremities without edema. No focal motor neurologic deficits. Const: Vital Signs, click to edit/add: Vital Signs - 24 hr 06/17/22 16:30 06/17/22 17:30 06/17/22 18:32 Temperature 96 F L 96.2 F L 97.1 F L Pulse Rate Pulse Rate [Right Pulse Oximeter] 67 66 86 Respiratory Rate 18 16 18 Blood Pressure Blood Pressure [Le ft Arm] 145/84 H 148/79 H 147/90 H Pulse Oximetry 96 95 94 Oxygen Delivery Me thod Room Air Room Air Room Air Oxygen Flow Rate 06/17/22 19:00 06/17/22 19:30 06/17/22 23:00 Temperature 97.6 F 97.6 F 97.5 F L Pulse Rate Pulse Rate [Right Pulse Oximeter] 70 70 78 Respiratory Rate 18 18 18 Blood Pressure Blood Pressure [Le ft Arm] 147/71 H 147/71 H 153/74 H Pulse Oximetry 93 93 94 Oxygen Delivery Nm thod Room Air Room Air Room Air Oxygen Flow Rate 0 06/18/22 03:00 06/18/22 07:00 06/18/22 07:00 Temperature 97.7 F 97.5 F L Pulse Rate Pulse Rate [Right Pulse Oximeter] 79 73 73 Respiratory Rate 20 20 20 Blood Pressure Blood Pressure [Le ft Arm] 167/79 H 143/89 H Pulse Oximetry 95 96 Oxygen Delivery Nm thod Room Air Room Air Oxygen Flow Rate 0 0 06/18/22 12:33 06/18/22 11:00 Temperature 97.5 F L 97.8 F Pulse Rate 58 L Pulse Rate [Right Pulse Oximeter] 74 Respiratory Rate 20 20 Blood Pressure 136/73 Blood Pressure [Le ft Arm] 138/71 Pulse Oximetry 95 Oxygen Delivery Me thod Room Air Oxygen Flow Rate 0 Documenting provider has reviewed patient's vital signs: yes DS: Data Data Completed and Pending Labs on day of discharge: Labs from last 24 hours 06/18/22 06/18/22 06:30 06:30 WBC 12.49 H RBC 4.24 Hgb 13.2 Hct 40.2 MCV 95 MCH 31 MCHC 33 RDW Coeff of Kelby 12.9 Plt Count 182 Neut % (Auto) 82.0 H Lymph % (Auto) 6.8 L [place] % (Auto) 10.8 Eos % (Auto) 0.1 Baso % (Auto) 0.1 Neut # (Auto) 10.20 H Lymph # (Auto) 0.80 L [place] # (Auto) 1.30 H Eos # (Auto) 0.00 Baso # (Auto) 0.00 Abs Immat Gran (auto) 0.02 Sodium 138 Potassium 5.1 BUN 32 H Creatinine 1.0 Estimated Creat Clear 38.35 Estimated GFR 58 Discharge Plan Discharge Disposition: Xfer Other Discharge Location: [facility] Discharging Surgeon: Billy Gilbert Follow-Up Appointment: 1 week PO with TOYA Prescriptions: New sennosides-docusate sodium [Senna-S] 8.6-50 mg tablet 1 - 4 tab-cap PO BID PRN (Reason: constipation) Qty: 60 0RF Rx Instructions: Hold medication if experiencing loose stools. aspirin 81 mg tablet,delayed release (DR/EC) 81 mg PO BID Qty: 60 0RF Rx Instructions: Medication to help prevent blood clots postoperatively; take TWICE daily. celecoxib 100 mg capsule 100 mg PO BID Qty: 60 0RF oxycodone 5 mg tablet 2.5 - 5 mg PO Q4-6H MDD 6 PRN (Reason: pain) Qty: 42 0RF Rx Instructions: Take as needed for postop pain: 2.5mg mild pain, 5mg moderate-severe pain; wean as tolerated. Continued amlodipine 5 mg tablet 5 mg PO DAILY Qty: 90 4RF potassium citrate 5 mEq (540 mg) tablet extended release 20 meq PO DAILY Qty: 360 3RF carboxymethylcellulose sodium [Refresh Tears] 0.5 % drops 1 drp ophthalmic (eye) BID PRN multivitamin Tablet 1 tab PO DAILY ferrous sulfate 325 mg (65 mg iron) tablet 325 mg PO DAILY Castro-Citrate 250 mg-2.5 mcg (100 unit) tablet 2 tab PO DAILY vedolizumab 300 mg recon soln 300 mg IV Q4W Rx Instructions: administer week 6 of treatment (Entivo) acetaminophen [8 Hour Pain Reliever] 650 mg tablet extended release 1,300 mg PO Q8H levothyroxine 100 mcg capsule 100 mcg PO DAILY Changed gabapentin 100 mg capsule 100 mg PO BID Qty: 360 3RF Rx Instructions: 1 tablet in the morning, 1 tablet in the day, 2 tablets at bedtime Discontinued turmeric 1 cap PO DAILY Activity Level: Activity as Tolerated, Weight Bearing as Tolerated, Use Cane and Use Walker Activity Detail: Wound: ?Do not remove original dressing; we will remove this at first postop visit in 1 week. Only remove dressing if integrity is in question. ?No immersing wound in water; showering okay; light scrub with your hand and body soap, rinse, dab dry ?Sutures are under the skin, will dissolve; allow surgical glue to come off naturally; do not scrub the wound or apply ointments/lotions ?Call our office with any redness that streaks, excessive drainage from the wound, or wound gapping. Ice/Elevate: ?Ice as needed for swelling and discomfort (cryocuff or ice pack); elevate frequently above the heart IVETT socks: ?Wear for 1 month, remove for 1 hour 3 times per day ?These are frustrating to take on/off, but are important for blood clot prevention for 1 month after surgery Blood Clot Prevention (DVT): ?Medication: 81 mg aspirin by mouth twice daily (1 month) Driving: ?Do not drive while taking narcotic pain medication ?Anticipate 4-6 weeks no driving if operative leg is driving leg Dental: ?No elective dental work for 6 months post-op. If there is an urgent/emergent dental need, contact our office for an antibiotic prescription. Smoking/Alcohol: ?Do not smoke; do no drink alcohol especially when taking postoperative oral narcotic medication Seek Care from you Primary Care Provider if you experience the following issues in the postoperative phase and beyond: ?Bacterial infections such as: pneumonia, bacterial skin infection (cellulitis), UTI, high fever, chills unrelated to the operative body part - call your primary care physician urgently for treatment in hopes to protect your health and the metal implant. Referrals: ?PT, OT per patient preference - evaluate treat total knee arthroplasty protocol (gait training, ROM, ADLs) Follow up: ?Ortho surgeon follow-up in 6 weeks; repeat radiographs three views operative knee ?TOYA visit in 1 week *If there are any acute concerns regarding your surgery, please call our orthopedic clinic ([phone]) Discharge Diet: Regular Patient Instructions: Surgical Site Infections (DC), Knee Replacement (DC) Forms: Work/Release Restrictions Follow-up: [facility], Physical Therapy [Other] - None (Cancelled) Namrata Burgess MD [Primary Care Provider] - (Schedule appointment as needed) Germán Ribeiro PA-C [Physician Business Controller] - 06/25/22 8:30 am Discharge Orders: Discharge Order (Routine); Ordered 06/18/22 Ordered By: Germán Ribeiro
== END 2022-06-18 13:20 ==
LOC: OR 07:16 → MEDSURG 07:21
PROVIDERS: PCP Family Medicine; Visit Provider Orthopaedic Surgery Sports Medicine
PROC: (CPT 27447; principal; 2022-06-17 09:00)
DX: M17.12 Unilateral primary osteoarthritis, left knee (principal); G89.29 Other chronic pain; M81.0 Age-related osteoporosis without current pathological fracture; G47.33 Obstructive sleep apnea (adult) (pediatric); R73.03 Prediabetes; I12.9 Hypertensive chronic kidney disease with stage 1 through stage 4 chronic kidney disease, or unspecified chronic kidney disease; N18.30 Chronic kidney disease, stage 3 unspecified; N20.9 Urinary calculus, unspecified; K51.90 Ulcerative colitis, unspecified, without complications; E03.9 Hypothyroidism, unspecified
CPT/HCPCS: 27447; 1402; 36415; 64447; 64454; 73560; 76942; 82565; 84132; 84295; 84520; 85025; 93971; 97110; 97116; 97161; 97165; 97530; 97535; 99100; A9270; C1776; J0690; J1100; J1170; J2250; J2370; J2405; J2704; J2795; J3010; J7120

== ENCOUNTER 2022-07-28 15:45 | Outpatient (RCR) | payer MEDICARE, SELFPAY ==
--- NOTE | 2022-05-08 16:24 | PT.OPEX ---
Please sign below for ortho evaluation completed on 05/08/22. Thank you. PT [place] Outpatient Eval PT [facility] Outpatient Eval Start: 05/08/22 14:09 Freq: Status: Active Protocol: Document 05/08/22 14:41 TLQ (Rec: 05/08/22 16:16 TLQ [id number]) E-signed By Joi Alonzo DPT Physical Therapy Outpatient Evaluation Insurance Information Recert Due Date 07/03/22 Insurance Name Medicare B,Other; See Comments Insurance Information/Comments Medicare/[employer]ARP Health Care Options Medical Diagnosis Adhesive capsulitis of left shoulder (M75.02) Treating Diagnosis Pain in L shoulder (M25.512) Muscle weakness (M62.81) Referring MD Dr. Burgess Subjective Subjective Patient reports she's had pain in L shoulder off/on for 40+ years. Has had physical therapy in the past which seemed to help. States this time it feels a little bit different. Describes pain as an ache. Limits her range of motion, makes it difficult to reach up into the cupboard. The pain occasionally makes it hard to fall asleep, prefers to sleep on her side. Is L handed but states she often uses her R hand for activities as well, such as opening a door. Takes gabapentin and extra strength Tylenol for arthritis. Denies having any symptoms that go down the arm. States she had cortisone injections many years ago which seemed to help, hasn't had any for her shoulders in the past few years. Goes to the chiropractor 1x a month, but primarily is seen for her back. 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 Pain Comments 5/10 at worst Current Work Status Retired Precautions Therapy Limitations/Systems Review Not Limited Objective Range of Motion Shoulder: flexion - L 112, R 150 abduction - L 80, R 170 external rotation - L 65 pain, R 90 internal rotation L 90, R 90 Strength Shoulder: flexion - L 4/5 pain, R 5/5 abduction - L 4+/5 pain, R 4+/ 5 external rotation - L 4/5, R 4 +/5 internal rotation - L 4+/5, R 5/5 Elbow: flexion - L 4/5, R 5/5 extension - L 5/5, R 5/5 Palpation soft tissue - tender with palpation of L supraspinatus, proximal bicep tendon, infraspinatus, levator, and upper trap GH joint mobility - normal posterior glide bilaterally scapulothoracic mobility - hypermobile on L Posture posture - forward shoulders, L >R scapular winging on L, positioned in upward rotation Other/Pertinent Objective Special tests: Neer impingement - L + for ache, R - Alfaro-Jose - L + for pain , R - Empty can - L + for pain, R - Functional Test Performed & Score SPADI score (05/08/22): pain - 23/50 (46%) disability - 39/80 (48.75%) Assessment Assessment/Impression Patient is a 76 year old female who presents to physical therapy with symptoms consistent with adhesive capsulitis and impingement of her L shoulder. Has history of chronic L shoulder pain, current symptoms are limiting her ability to reach into cupboards at home and perform self cares such as washing her hair and getting dressed. Examination revealed limited L shoulder AROM with abduction, flexion, and external rotation. Most limited in abduction and flexion. Normal glenohumeral joint mobility, hypermobile scapula on L. Has forward posture and upward rotation of scapula on L which is creating impingement symptoms in the anterior aspect of her L shoulder when reaching for objects. Positive reproduction of symptoms with impingement testing. She was tender with palpation of L upper trap, infraspinatus, supraspinatus, levator scapulae, and proximal bicep tendon. 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 Primary Functional Limitations L shoulder pain, decreased L shoulder AROM, difficulty reaching into cupboard Plan of Care Rehabilitation Potential Good Physical Therapy Goals created 05/08/22: STG - Subjective reports of pain will decrease from 5/10 to 3/10 in 4 weeks. STG - L shoulder AROM will increase by 10 degrees for flexion and abduction for improved shoulder mobility needed to reach into cupboard in 4 weeks. 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 LTG - Patient will adhere to HEP consisting of UE stretching and strengthening exercises for home management of symptoms in 8 weeks. Treatment Plan/Direct Interventions Electrical Stimulation,Joint Mobilization,Manual Therapy, Neuromuscular Re-ed, Therapeutic Activities, Therapeutic Exercises, Ultrasound Frequency/Duration 1x/week for 8 weeks Patient Will Be Discharged From Therapy Completion of LTG(s),Skills Plateau,Independent w/HEP, Independently Progressing Evaluation Billing Untimed Code Treatment Minutes 25 Complexity Low Certification Information Initial Certification Date 05/08/22 Ending Certification Date 07/03/22 Provider Signature Shows Agreement With POC & Medical Necessity Physician Comment/Change Comment or Changes Physician NPI Number #
--- NOTE | 2022-06-08 17:15 | PT.OP2DDNX ---
PT [place] [facility] 2nd Diagnosis Daily Note PT [facility] Out[facility] 2nd Diag Daily Note Start: 06/08/22 13:04 Freq: Status: Active Protocol: Document 06/08/22 13:05 ELISE (Rec: 06/08/22 13:09 ELISE [id number]) E-signed By Vin Ding, PT PT [facility] 2nd Diagnosis Daily Note Visit Information Note Type 2nd Diagnosis Daily Note, Recert/Progress Note Visit Number 1 Insurance Information Insurance Name Medicare B Medical Diagnosis Left knee OA Pre-op left TKA Left shoulder pain Treating Diagnosis Left knee pain left knee weakness Left shoulder weakness Referring MD Gilbert Subjective Subjective Pt. reports having progressive left knee OA pain and dysfunction leading to current plan of having a TKA on . She had her right knee replaced in 2009 which went well overall. She lives in a 2 story home with help from children but not 24 hours a day as they work. She has been getting therapy for her left shoulder due to pain and weakness which is relatively unchanged at this point. She will be seeing Ortho for that this week as well. She is concerned about going home right away after surgery due to being by herself during the day and she would feel more comfortable going to SNF for a short stay before going home if she can. Home Exercise Home Exercise Reviewed Yes: TKA protocol Objective Patient Instructed in Risks/Benefits Yes Therapeutic Exercise Therapeutic Exercise Minutes (minutes) 25 Therapeutic Exercise: To Restore Educated pt. in TKA process Functional Status and instructed pt. in TKA exercise protocol today. Treatment Minutes Untimed Code Treatment Minutes 20 Timed Code Treatment Minutes 25 Total Treatment Time 45 Billing Units Therapeutic Exercise Units 2 Re-Evaluation Units 1 Assessment/Impression Assessment/Impression Objectively, pt. demonstrates; indep. ambulation without assistive device; good right quad strength; full knee extension with 100 plus degrees of flexion; indep. transfers; and limited left shoulder abduction AROM due to pain and cuff weakness. She will work on pre-op HEP heading into surgery with follow up in therapy after returning home again. Plan of Care Physical Therapy Goals 1. Pt. will be indep. with HEP for self maintenance in 8 weeks. 2. Pt. will be able to raise arm overhead without pain in 12 weeks. 3. Pt. will be able to walk without assistive device in 8- 12 weeks. 4. Pt. will demonstrate improved quad strength to functional level in 8-12 weeks . 5. Pt. will demonstrate functional knee AROM to allow regular ADL's in 8-12 weeks. Daily Plan of Care Change POC; See Comments Daily Plan of Care Comments Return for re-eval after surgery. Recertification Information Initial Certification Date 05/08/22 Most Recent Visit 06/08/22 Recertification Start Date 06/08/22 Recertification Due Date 09/04/22 Reasons to Continue Skilled Therapy Pt. will be seen again after TKA surgery on 05/17/22 for skilled therapy. Rehabilitation Potential Good for Goals. Provider Signature Shows Agreement With POC & Medical Necessity Physician Comment/Change Comment or Changes Physician NPI Number #
== END 2023-04-15 23:59 | disposition home or self-care (01) ==
PROVIDERS: PCP Family Medicine; Visit Provider Family Medicine
DX: M17.12 Unilateral primary osteoarthritis, left knee (principal); Z51.89 Encounter for other specified aftercare
CPT/HCPCS: 97110; 97116; 97140; 97161; 97164

== ENCOUNTER 2022-07-31 16:15 | Outpatient (RCR) | payer MEDICARE, SELFPAY | END 2023-04-15 23:59 | disposition home or self-care (01) | PROVIDERS: PCP Family Medicine; Visit Provider Orthopaedic Surgery Sports Medicine | DX: M17.12 Unilateral primary osteoarthritis, left knee (principal); G89.29 Other chronic pain; Z96.652 Presence of left artificial knee joint; Z51.89 Encounter for other specified aftercare ==

== ENCOUNTER 2022-08-21 13:26 | Outpatient (CLI) | payer MEDICARE, SELFPAY ==
--- NOTE | 2022-08-21 13:45 | MR_ITS ---
[address] [address] Phone:?[phone] Fax:?[phone] Referring Physician Information: Billy Gilbert M.D. [id number] [facility] [address] Phone:?[phone] Fax:?[phone] Patient:?Petra Paris D.O.B:?1945 Sex:?Female Phone:?[phone] [facility] MRN:?[id number] Exam Date:?08/21/2022 ? EXAM: MRI of the LEFT SHOULDER, without contrast CLINICAL: Female, 76 years old, with left shoulder pain. INDICATION: Evaluate rotator cuff tear. PRIOR SURGERY: None reported. PLAIN FILMS: None available. COMPARISONS: No prior MRIs available. TECHNICAL: Using a 1.5T MR scanner and a localizing shoulder surface coil: 3.0 mm?coronal obliques: PD, T2, STIR 3.0 mm?sagittal obliques: PD, T2 3.0 mm?axials: PD, T2 SEDATION: None. CONTRAST: None. IMPRESSION: 1. Findings in keeping with those which can be associated with any clinical evidence of intermediate approaching late stage acromiohumeral impingement/rotator cuff syndrome. 2. Prominent tendinosis and attenuation of most of the supraspinatus tendon with superimposed less than 1 cm area full-thickness anterior full-thickness insertional tear, with mild muscle atrophy. 3. Mild narrowing of acromiohumeral contributes to some encroachment upon the subacromial space. 4. 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 5. Mild glenohumeral chondral thinning without full-thickness thinning/defect, subjacent marrow edema or pathologic joint effusion this time. FINDINGS: Glenohumeral joint: Effusion/cyst: Physiologic effusion. No paralabral ganglion cyst. Articular cartilage: Chondral thinning although without full-thickness thinning/defect or subjacent marrow edema. Loose bodies: No demonstrable loose bodies. Inferior glenohumeral ligament/axillary recess: The axillary recess is normal in thickness and signal. No evidence of adhesive capsulitis or capsuloligamentous injury. Labrum: Degeneration and some irregularity of the anterior labrum without convincing typical Bankart/Perthes morphology. The posterior and superior labrum appear less remarkable. Bones: Proximal humerus: Slight chronic hyperostosis of the greater tuberosity underlies distal insertional supraspinatus tendinosis tendinosis detailed below. The proximal humerus is otherwise intact. No humeral Hill-Sachs or reverse Hill- Sachs lesion/impaction or contusion. Glenoid: No fracture or marrow edema/pathology. No osseous Bankart lesion. Coracoacromial arch: Acromion morphology: Type I versus minimal type II acromion with slight subacromial spur/ethesophyte No mesoacromion or preacromion. Acromiohumeral space: Mildly narrowed anteriorly at a minimum of 4 mm. Coracohumeral space: Mildly towards moderately narrowed. 6.5 mm bony distance. 5.5 lm soft tissue distance. 16.5 mm coracoid overlap. Acromioclavicular joint: Joint: Ongoing reactive changes of mild acromioclavicular joint arthrosis/osteoarthritis with marrow edema and subchondral cyst of the distal clavicular facet and small amount of fluid within the AC joint (coronal STIR series 4, images 9-12). Ligaments: Coracoclavicular ligaments are intact. Bursae: Subacromial-subdeltoid: Mild subacromial bursal edema/bursitis (coronal STIR series 4, images 18-8). Subcoracoid: No convincing subcoracoid bursal thickening/bursitis. Rotator cuff and muscles/tendons: Supraspinatus: Moderate supraspinatus tendinosis/tendinopathy with prominent deep surface greater than superficial bursal surface attenuation and superimposed small less than 1 cm near full-thickness tear of the distal insertional footprint of the anterior supraspinatus tendon (coronal images 12-8; sagittal images 8-5). Supraspinatus mild decreased muscle bulk and mild Goutallier stage 2 fatty infiltration. Infraspinatus: Mild tendinosis extends into adjacent infraspinatus tendon without defined tear. No tendon or myotendinous junction retraction. No muscle atrophy. Teres minor: No tendinopathy, tear or atrophy. Subscapularis: No tendinopathy, tear or atrophy. Deltoid: No strain or atrophy. Biceps tendon, long head: The long head of the biceps tendon is present within the bicipital groove. Intra-articular and extra-articular segments are intact without tendinopathy or displacement. Axilla: No axillary masses or abnormally enlarged lymphadenopathy. [facility] Electronically signed on 08/24/2022 8:04:00 AM by Eddi Milton M.D.
== END 2022-08-21 13:27 | disposition home or self-care (01) ==
LOC: MRI 13:26
PROVIDERS: PCP Family Medicine; Visit Provider Orthopaedic Surgery Sports Medicine
DX: M25.512 Pain in left shoulder (principal); M75.102 Unspecified rotator cuff tear or rupture of left shoulder, not specified as traumatic; M19.012 Primary osteoarthritis, left shoulder
CPT/HCPCS: 73221

== ENCOUNTER 2022-10-21 14:00 | Outpatient (RCR) | payer MEDICARE, SELFPAY ==
[2022-05-06 14:00] VITALS: BP 144/74; PULSE 94; RESP 14; TEMP 35.9; O2SAT 97
[2022-05-06] MEDS: VEDOLIZUMAB 300 MG, TUBING SECONDARY 1 EACH in 0.9 % SODIUM CHLORIDE 250 ml 250 ML 510 MG IVPB (14:39)
[2022-06-03 14:00] VITALS: BP 127/74; PULSE 82; RESP 16; TEMP 36.7; O2SAT 95
[2022-06-03] MEDS: 0.9 % SODIUM CHLORIDE 250 ml IV (14:08)
[2022-06-03] MEDS: SODIUM CHLORIDE 0.9 % (FLUSH) 10 ML SYRINGE IVF ×2 (14:08→14:44)
[2022-06-03] MEDS: VEDOLIZUMAB 300 MG, TUBING SECONDARY 1 EACH in 0.9 % SODIUM CHLORIDE 250 ml 250 ML 510 MG IVPB (14:11)
[2022-07-01 14:23] VITALS: BP 120/71; PULSE 81; RESP 16; TEMP 36.6; O2SAT 95
[2022-07-01] MEDS: 0.9 % SODIUM CHLORIDE 250 ml IV (14:49)
[2022-07-01] MEDS: VEDOLIZUMAB 300 MG, TUBING SECONDARY 1 EACH in 0.9 % SODIUM CHLORIDE 250 ml 250 ML 510 MG IVPB (15:06)
[2022-07-29 14:10] VITALS: BP 125/60; PULSE 73; RESP 16; TEMP 36.2; O2SAT 96
[2022-07-29] MEDS: VEDOLIZUMAB 300 MG, TUBING SECONDARY 1 EACH in 0.9 % SODIUM CHLORIDE 250 ml 250 ML 510 MG IVPB (14:28)
[2022-08-26 14:07] VITALS: BP 128/79; PULSE 86; RESP 16; TEMP 35.8
[2022-08-26] MEDS: VEDOLIZUMAB 300 MG, TUBING SECONDARY 1 EACH in 0.9 % SODIUM CHLORIDE 250 ml 250 ML 510 MG IVPB (14:35)
[2022-08-26] MEDS: SODIUM CHLORIDE 0.9 % (FLUSH) 10 ML SYRINGE IVF (15:22)
[2022-08-26] MEDS: 0.9 % SODIUM CHLORIDE 250 ml IV (15:23)
[2022-09-23 14:08] VITALS: BP 150/77; PULSE 79; RESP 16; TEMP 36.3; O2SAT 97
[2022-09-23] MEDS: VEDOLIZUMAB 300 MG, TUBING SECONDARY 1 EACH in 0.9 % SODIUM CHLORIDE 250 ml 250 ML 510 MG IVPB (14:33)
[2022-10-21 14:00] VITALS: BP 134/70; PULSE 75; RESP 16; TEMP 36.1; O2SAT 96
[2022-10-21] MEDS: 0.9 % SODIUM CHLORIDE 250 ml IV (14:34)
[2022-10-21] MEDS: VEDOLIZUMAB 300 MG, TUBING SECONDARY 1 EACH in 0.9 % SODIUM CHLORIDE 250 ml 250 ML 510 MG IVPB (14:34)
== END 2022-11-02 23:59 | disposition home or self-care (01) ==
LOC: CCIC 14:00
PROVIDERS: PCP Family Medicine; Referring Provider Family Medicine; Visit Provider Internal Medicine Gastroenterology
DX: K51.90 Ulcerative colitis, unspecified, without complications (principal)
CPT/HCPCS: 96365; 96413; J3380; J7050

== ENCOUNTER 2022-11-04 13:32 | Outpatient (CLI) | payer MEDICARE, SELFPAY ==
[2022-11-04 10:10] LABS: Albumin* 4.4 g/dL (3.3-5.0); Chloride* 105 mmol/L (96-114); Sodium* 141 mmol/L (135-149)
[2022-11-04 10:12] LABS: Cholesterol* 176 mg/dL (90-199); Creatinine* 1.2 mg/dL (0.5-1.5); Estimated Glomerular Filt Rate 46 ml/min
[2022-11-04 10:13] LABS: Alanine Aminotransferase* 26 U/L (4-35); Alkaline Phosphatase* 61 U/L (40-150); Aspartate Amino Transferase* 27 U/L (12-35); Bilirubin Total* 0.6 mg/dL (0.1-1.5); Blood Urea Nitrogen* 38 mg/dL (7-30); Calcium* 9.4 mg/dL (8.4-10.6); Carbon Dioxide* 29 mmol/L (20-32); Glucose* 103 mg/dL (60-115); Total Protein* 7.2 g/dL (6.0-8.3); Triglycerides* 104 mg/dL (40-149)
[2022-11-04 10:14] LABS: HDL Cholesterol* 95 mg/dL (>=50); LDL Cholesterol Calculated 60 mg/dL (<100); Vitamin D 25 Hydroxy* 68 ng/mL (30-80)
== END 2022-11-04 13:33 | disposition home or self-care (01) ==
PROVIDERS: PCP Family Medicine; Visit Provider Family Medicine
DX: Z00.00 Encounter for general adult medical examination without abnormal findings (principal); I10 Essential (primary) hypertension; M81.0 Age-related osteoporosis without current pathological fracture; E03.9 Hypothyroidism, unspecified; N18.30 Chronic kidney disease, stage 3 unspecified; R73.03 Prediabetes
CPT/HCPCS: 80053; 80061; 82306; 84443

== ENCOUNTER 2022-12-22 10:15 | Outpatient (RCR) | payer MEDICARE, SELFPAY ==
--- NOTE | 2022-10-20 14:02 | PT.OPEX ---
[facility] Eval Start: 10/20/22 11:00 Freq: Status: Active Protocol: Document 10/20/22 13:34 ELISE (Rec: 10/20/22 13:52 ELISE [id number]) E-signed By Vin Ding PT Physical Therapy Outpatient Evaluation Insurance Information Insurance Name Medicare B Medical Diagnosis Left shoulder impingement syndrome Treating Diagnosis Left shoulder pain Left scapular weakness/ dyskinesia Left rotator cuff weakness Referring MD Gilbert Subjective Subjective Pt. comes to therapy today with complaints of left shoulder pain, weakness and dysfunction. She had therapy before last year with modest improvements noted. She saw Orthopedist and had an MRI which showed a cuff tear, bone spur, and ACJ arthritis. Her pain isn't as bad as it was in therapy last year but she is left handed and is very limited in her functional use due to pain and weakness. She had a right TKA 4 months ago as well. PMH includes; HTN, arthritis osteoporosis, and allergies. Pain Comments 01/04 Date of Last Physician Visit 09/01/22 Current Work Status Retired Preferred Name Petra Objective Range of Motion Bilat. shoulder WNL Strength Left shoulder: flexion and abduction 2plus/5 significant left scapular weakness and dyskinesia Posture Significant rounded shoulders with depressed and anterior left humeral head and scapular malposition Assessment Assessment/Impression Objectively, pt. demonstrates; significant forward shoulder posture with depressed and anterior left humeral head and anterior scapula; good passive left shoulder ROM; 4/5 shoulder ER and IR strength; significant weakness of left shoulder abduction and scaption 2plus/5 with pain; and significant left scapular weakness and dyskinesia with poor control and proprioception. She would benefit from skilled therapy working on progressive scapular and then cuff strengthening program over next 8 week period. Plan of Care Rehabilitation Potential Good Physical Therapy Goals 1. Pt. will be indep. with HEP for self maintenance in 12 weeks. 2. Pt. will demonstrate improved shoulder AROM with improved scapular control in 12 weeks. 3. Pt. will be able to raise arm overhead for ADL's again for ADL's in 12 weeks. Coordination/Communication With Referral Source Treatment Plan/Direct Interventions Electrical Stimulation, Neuromuscular Re-ed,Self-Care/ Home Management,Therapeutic Activities,Therapeutic Exercises Frequency/Duration 1-2 times a week for 8-12 weeks. Patient Will Be Discharged From Therapy Independent w/HEP Evaluation Billing Complexity Moderate Certification Information Initial Certification Date 10/20/22 Ending Certification Date 01/12/23 Provider Signature Shows Agreement With POC & Medical Necessity Physician Signature & Date Requested Please Sign/Date Here Physician Comment/Change : Physician NPI Number #
== END 2022-12-22 10:58 | disposition home or self-care (01) ==
PROVIDERS: PCP Family Medicine; Visit Provider Orthopaedic Surgery Sports Medicine
DX: M75.42 Impingement syndrome of left shoulder (principal); M75.112 Incomplete rotator cuff tear or rupture of left shoulder, not specified as traumatic; M95.8 Other specified acquired deformities of musculoskeletal system; M25.512 Pain in left shoulder; Z51.89 Encounter for other specified aftercare
CPT/HCPCS: 97110; 97112; 97140; 97162

== ENCOUNTER 2023-05-05 14:00 | Outpatient (RCR) | payer MEDICARE, SELFPAY ==
[2022-11-20 10:39] VITALS: BP 121/73; PULSE 75; RESP 18; TEMP 36.2; O2SAT 95
[2022-11-20] MEDS: VEDOLIZUMAB 300 MG, TUBING SECONDARY 1 EACH in 0.9 % SODIUM CHLORIDE 250 ml 250 ML 510 MG IVPB (11:07)
[2022-12-16 14:08] VITALS: BP 141/70; RESP 16; TEMP 35.7; O2SAT 98
[2022-12-16] MEDS: VEDOLIZUMAB 300 MG, TUBING SECONDARY 1 EACH in 0.9 % SODIUM CHLORIDE 250 ml 250 ML 510 MG IVPB (14:35)
--- NOTE | 2022-12-23 11:32 | URNOTE ---
Received request for prior auth for Robert ([id number]). Pt has Medicare and AARP supplement. Prior auth is not required as services are based on medical necessity and follow medicare guidelines.
[2023-01-13 14:07] VITALS: BP 140/85; PULSE 79; RESP 16; TEMP 35.7; O2SAT 94
[2023-01-13] MEDS: VEDOLIZUMAB 300 MG, TUBING SECONDARY 1 EACH in 0.9 % SODIUM CHLORIDE 250 ml 250 ML 510 MG IVPB (14:27)
[2023-02-11 14:03] VITALS: BP 130/71; PULSE 77; RESP 16; TEMP 36.2; O2SAT 94
[2023-02-11] MEDS: VEDOLIZUMAB 300 MG, TUBING SECONDARY 1 EACH in 0.9 % SODIUM CHLORIDE 250 ml 250 ML 510 MG IVPB (14:23)
[2023-03-10 14:03] VITALS: BP 144/72; PULSE 69; RESP 16; TEMP 36.4; O2SAT 96
[2023-03-10] MEDS: VEDOLIZUMAB 300 MG, TUBING SECONDARY 1 EACH in 0.9 % SODIUM CHLORIDE 250 ml 250 ML 510 MG IVPB (14:47)
[2023-04-07 13:58] VITALS: BP 125/75; PULSE 94; RESP 16; TEMP 36.1; O2SAT 94
[2023-04-07] MEDS: 0.9 % SODIUM CHLORIDE 250 ml IV (14:29)
[2023-04-07] MEDS: VEDOLIZUMAB 300 MG, TUBING SECONDARY 1 EACH in 0.9 % SODIUM CHLORIDE 250 ml 250 ML 510 MG IVPB (14:30)
[2023-05-05 14:02] VITALS: BP 114/68; PULSE 66; RESP 16; TEMP 36; O2SAT 96
[2023-05-05] MEDS: VEDOLIZUMAB 300 MG, TUBING SECONDARY 1 EACH in 0.9 % SODIUM CHLORIDE 250 ml 250 ML 510 MG IVPB (14:26)
== END 2023-05-19 23:59 | disposition home or self-care (01) ==
LOC: CCIC 14:00
PROVIDERS: PCP Family Medicine; Referring Provider Family Medicine; Visit Provider Internal Medicine Gastroenterology
DX: K51.90 Ulcerative colitis, unspecified, without complications (principal)
CPT/HCPCS: 96365; J3380; J7050

== ENCOUNTER 2023-05-07 14:00 | Outpatient (CLI) | payer MEDICARE, SELFPAY | END 2023-05-07 14:01 | disposition home or self-care (01) | LOC: NFLDREF 05-09 09:22 | PROVIDERS: PCP Family Medicine; Referring Provider Family Medicine; Visit Provider Family Medicine | DX: I10 Essential (primary) hypertension (principal); R73.03 Prediabetes; N18.32 Chronic kidney disease, stage 3b | CPT/HCPCS: 80053 ==

== ENCOUNTER 2023-07-23 13:24 | Outpatient (CLI) | payer MEDICARE, SELFPAY | END 2023-07-23 13:25 | disposition home or self-care (01) | LOC: NFLDREF 07-26 11:58 | PROVIDERS: PCP Family Medicine; Referring Provider Family Medicine; Visit Provider Registered Nurse | DX: R30.0 Dysuria (principal); N39.0 Urinary tract infection, site not specified; N30.00 Acute cystitis without hematuria | CPT/HCPCS: 87086 ==

== ENCOUNTER 2023-08-06 12:34 | Outpatient (CLI) | payer MEDICARE, SELFPAY | END 2023-08-06 12:35 | disposition home or self-care (01) | LOC: NFLDREF 12:35 | PROVIDERS: PCP Family Medicine; Visit Provider Family Medicine | DX: N39.0 Urinary tract infection, site not specified (principal) | CPT/HCPCS: 87086 ==

== ENCOUNTER 2023-09-07 10:43 | Outpatient (CLI) | payer MEDICARE, SELFPAY | END 2023-09-07 10:44 | disposition home or self-care (01) | LOC: NFLDREF 10:44 | PROVIDERS: PCP Family Medicine; Visit Provider Family Medicine | DX: N39.0 Urinary tract infection, site not specified (principal) | CPT/HCPCS: 87086; 87186 ==

== ENCOUNTER 2023-11-12 14:11 | Outpatient (REF) | payer MEDICARE, SELFPAY ==
--- OUTSIDE RECORDS SUMMARY | 2023-11-14 08:17 | XMS_ITS ---
Author Name Unknown Organization [facility] Address [address] [place] [address] Care Team Providers Care Business Line Controller Name Role Phone Unavailable Unavailable Unavailable Surgery Details Not on file Complications Check Surgery Details section. Procedure Estimated Blood Loss Check Surgery Details section. Procedure Findings Check Surgery Details section. Procedure Specimens Taken Check Surgery Details section.
--- OUTSIDE RECORDS SUMMARY | 2023-11-14 08:17 | XMS_ITS | Clinical Summary ---
Author Name Unknown Organization [facility] Address [place], [place] [address] Care Team Providers Care Grading Machine Operator Name Role Phone Namrata Burgess MD Primary Care Provider + Allergies Active Allergy Reactions Criticality Noted Date Comments Lisinopril *Unknown 05/24/2018 Unlisted Allergen (Include Detail In Comments) Irritation At Inj Site 05/27/2018 Pneumovax - old pneumonia vaccine Sulfa (Sulfonamide Antibiotics) *Unknown 05/24/2018 Medications Medication Sig Dispensed Refills Start Date End Date Status Omeprazole 20 mg tablet Take 1 tablet by mouth once daily. 0 05/27/2018 Active aoykzmae-iog-ammi-FA- lutein (CENTRUM SILVER WOMEN) 8 mg iron-400 mcg-300 mcg tab Take by mouth. 0 05/27/2018 Active acetaminophen (TYLENOL) 325 mg tablet Take by mouth every 4 hours if needed. Max acetaminophen dose: 4000mg in 24 hrs. 0 05/27/2018 Active traMADol (ULTRAM) 50 mg tablet Take 1 tablet by mouth every 6 hours if needed for Pain. 0 05/12/2019 Active ondansetron (ZOFRAN ODT) 4 mg disintegrating tablet 0 02/09/2019 Act sanam vedolizumab (ENTYVIO) 300 mg solr injectionIndications: Ulcerative colitis without complications, unspecified location (HC) 300 mg IV every 4 weeks for 1 year 300 mg 12 12/29/2019 Active gabapentin (NEURONTIN) 100 mg capsule 0 10/29/2020 Active levothyroxine (SYNTHROID) 100 mcg tablet Take 100 mcg by mouth once daily. 0 10/29/2020 Active potassium citrate (UROCIT-K) 5 mEq (540 mg) Extended-Release tablet Take 5 mEq by mouth. 0 Active amLODIPine (NORVASC) 5 mg tablet Take 5 mg by mouth once daily. 0 11/18/2020 Active TURMERIC ORAL Take 1 Capsule by mouth. 0 Active inulin (FIBER GUMMIES ORAL) Daily 0 Active cyanocobalamin, vitamin B-12, 5,000 mcg TbIE Take by mouth. 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/17/2020 Pyoderma gangrenosum 05/24/2018 021 Overview: Parastomal Social History Tobacco Use Types Packs/Day Years Used Date Smoking Tobacco: Never Smokeless Tobacco: Never Tobacco Cessation:Counseling Given: Yes Social Connections Answer Date Recorded Frequency of Communication with Friends and Fami ly Not on file 09/27/2021 Financial Resource Strain Answer Date R ecorded Difficulty of Paying Living Expenses Not on file 09/27/2021 Difficulty of Paying Living Expenses Not on file 09/27/2021 Sex and Gender Information Value Date Recorded Sex Assigned at Not on file Gender Identity Not on file Sexual Orientation Not on file Obstetrics History Last Filed Vital Signs Vital Sign Reading Time Taken Comments Blood Pressure 142/65 12/18/2022 1:53 PM CDT Pulse 77 12/18/2022 1:53 PM CDT Temperature 36.1 ??C (97 ??F) 05/24/2018 11:19 AM CDT Respiratory Rate 18 05/24/2018 11:19 AM CDT Oxygen Saturation 97% 12/18/2022 1:53 PM CDT Inhaled Oxygen Concentration - - Weight 70 kg (154 lb 5.2 oz) 12/18/2022 1:53 PM CDT Height - - Body Mass Index - - Plan of Treatment Upcoming Encounters Date Type Department Care Team (Late st Contact Info) Description 12/10/2023 1:30 PM CDT Office Visit [facility] [address] [place] [address] Virgilio Macias MD [address] [place] [address] Health Maintenance Due Date Last Done Comments Tdap 1954 Depression screening for age 12+ 1955 BMI (ht and wt on same day) for age 18+ 1961 Hepatitis C screening for age 18-79 1961 Zoster (shingles) series for age 50+ (1 of 2) 1962 Tetanus booster 1963 DEXA/DXA scan for age 65+ 2008 Medicare Wellness for age 65+ 2008 Pneumococcal series for age 65+ (1 of 1 - PCV) 2008 COVID-19 vaccine series (2022- season) 2023 05/23/2021, 11/30/2020, 11/09/2020 Influenza for age 65+ 05/28/2023 Care Teams Grading Machine Operator Relationship Specialty Start Date End Date Namrata Burgess MD [address] [place] [address] PCP - General Family Practice 05/27/18
--- OUTSIDE RECORDS SUMMARY | 2023-11-14 08:17 | XMS_ITS | Referral Summary ---
Author Name Unknown Organization [facility] Address [address] [place] [address] Care Team Providers Care Professor Of Marketing Name Role Phone Unavailable Primary Care Provider Unavailabl e Source Comments Patient records contain information from all sites at [facility]. For routine questions regarding patient records, call [phone] during business hours, M-F 8:00 AM - 5:00 PM Central Time. Record requests for emergency care only can be directed to [phone] at any time.[facility] Allergies Active Allergy Reactions Criticality Noted Date Comments Lisinopril Other (see comments) 05/24/2018 Pneumococcal Vaccine Other (see comments) 06/07 unknown Pollen Extracts Other (see comments) 06/07/2019 Sulfa (Sulfonamide Antibiotics) Other (see comments) 05/24/2018 Medications Medication Sig Dispensed Refills Start Date End Date Status levothyroxine (SYNTHROID, LEVOTHROID) 88 mcg tablet Take 88 mcg by mouth daily. 3 05/02/2019 Active klvyxhyo-tbx-ykei-FA -lutein 8 mg iron-400 mcg-300 mcg tablet Take by mouth. 0 05/27/2018 Active omeprazole 20 mg tablet,delayed release (DR/EC) Take 20 mg by mouth. 0 05/27/2018 Active artificial tears with lanolin (REFRESH P.M.) ophthalmic ointment 0.5 inches 3 (three) times a day as needed for dry eyes. 0 Active vedolizumab (ENTYVIO) 60 mg/mL injection 300 mg IV week 0, 2, 6 for loading, followed by every 8 weeks for maintenance therapy 0 07/13/2019 Active TURMERIC ORAL Take 1 capsule by mouth daily. 0 Active potassium citrate (UROCIT-K) 5 mEq (540 mg) ER tablet Take 5 mEq by mouth 2 (two) times a day with meals. 0 Active acetaminophen (TYLENOL) 500 mg tablet Take 2 tablets (1,000 mg total) by mouth every 6 (six) hours as needed for pain. 0 10/16/2019 Active gabapentin (NEURONTIN) 100 mg capsule 0 10/29/2020 Active amLODIPine (NORVASC) 5 mg tablet Take 5 mg by mouth daily. 0 09/04/2020 Active polyethylene glycol-electrolytes (GoLYTELY) 236-22.74-6.74 -5.86 gram solutionIndications: Colitis Ulcerative (HCC) Drink 1st portion of prep at 6 PM the evening before. 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 Urolithiasis 07/12/2019 Diverticulosis 06/07/2019 Colectomy Sigmoid Colon Status Post 06/07/2019 Ileostomy Status 06/07/2019 Fistula Intestine 09/15/2018 Pyoderma Gangrenosum 05/24/2018 Overview: Parastomal Hypertension NOS Immunizations Name Administration Dates Next Due SARS-COV-2 (COVID-19) - PFIZ ER (Discontinued)(12 years or older) 02/27/2022,11/30/2020,11/09/2020 Social History Tobacco Use Types Packs/Day Years Used Date Smoking Tobacco: Never Smokeless Tobacco: Never Tobacco Cessation:Counseling Given: Not Answered Alcohol Use Standard Drinks/Week Comments Yes 0 (1 standard drink = 0.6 oz pur e alcohol) very rare occassional Humiliation, Afraid, Rape, and Kick questionnair e Answer Date Recorded Within the last year, have y ou been afraid of your partner or ex-partner? No 01/17/2022 Within the last year, have y ou been humiliated or emotionally abused in other ways by your partner or ex-partner? No Within the last year, have y ou been kicked, hit, slapped, or otherwise physically hurt by your partner or ex-partner? No 01/17/2022 Within the last year, have y ou been raped or forced to have any kind of sexual activity by your partner or ex-partner? No 01/17/2022 Social Connection and Isolat ion Panel [NHANES] Answer Date Recorded In a typical week, how many times do you talk on the phone with family, friends, or neighbors? Once a week 01/17/2022 How often do you get togethe r with friends or relatives? Never 01/17/2022 How often do you attend chur or taoism services? Never 01/17/2022 Do you belong to any clubs o r organizations such as samaritan groups, unions, fraternal or athletic groups, or school groups? Yes 01/17/2022 How often do you attend meet ings of the clubs or organizations you belong to? More than 4 times per year 01/17/2022 Are you , , di vorced, , never , or living with a partner? 01/17/2022 AUDIT-C Answer Date Recorded Q1: How often do you have a drink containing alc ohol? Monthly or less 01/17/2022 Q2: How many drinks containi ng alcohol do you have on a typical day when you are drinking? 1 or 2 01/17/2022 Q3: How often do you have si x or more drinks on one occasion? Never 01/17/2022 Overall Financial Resource Strain (CARDIA) Answe r Date Recorded How hard is it for you to pa y for the very basics like food, housing, medical care, and heating? Not hard at all 06/17/2023 [facility] of Occupat ional Health - Occupational Stress Questionnaire Answer Date Recorded Do you feel stress - tense, restless, nervous, or anxious, or unable to sleep at night because your mind is troubled all the time - these days? Only a little 01/17/2022 Exercise Vital Sign Answer Date Recorde d On average, how many days pe r week do you engage in moderate to strenuous exercise (like a brisk walk)? 3 days 06/17/2023 On average, how many minutes do you engage in exercise at this level? 50 min 06/17/2023 Hunger Vital Sign Answer Date Recorded Within the past 12 months, y ou worried that your food would run out before you got the money to buy more. Never true 06/17/20 Within the past 12 months, t he food you bought just didn't last and you didn't have money to get more. Never true 06/17/2023 PRAPARE - Transportation Answer Date Re corded In the past 12 months, has l ack of transportation kept you from medical appointments or from getting medications? No 05/29 In the past 12 months, has l ack of transportation kept you from meetings, work, or from getting things needed for daily living? No 06/17/2023 Nutrition Answer Date Recorded Nutrition: EVOO Fat Source No 06/17 On average, how many serving s of fruits and vegetables do you eat per day (serving size is equal to 1 cup or approximately the size of a tennis ball)? 3-5 06/17/2023 Dental Answer Date Recorded Dental: Regular Dentist No 01/18/20 Employment Answer Date Recorded Employment status Retired 06/17/2023 Housing Stability Answer Date Recorded What is your living situation today? I have a [facility] place to live 06/17/2023 Education Answer Date Recorded What is the highest level of school you have completed or the highest degree you have received? Bachelor's degree (e.g., BA, AB, BS) 06/07/2019 Sex and Gender Information Value Date Recorded Sex Assigned at Female 01/17/2022 10:27 AM CDT Gender Identity Female 01/17/2022 10:27 AM CDT Sexual Orientation Straight 01/17/2022 10 :27 AM CDT Last Filed Vital Signs Vital Sign Reading Time Taken Comments Blood Pressure 125/73 06/09/2023 12:45 PM CDT Pulse 53 06/09/2023 12:56 PM CDT Temperature 36.4 ??C (97.5 ??F) 06/09/2023 1 2:55 PM CDT Respiratory Rate 14 06/09/2023 12:5 6 PM CDT Oxygen Saturation 96% 06/09/2023 12: 56 PM CDT Inhaled Oxygen Concentration - - Weight 68.8 kg (151 lb 10.8 oz) 023 10:51 AM CDT Height 160.8 cm (5' 3.31) 01/22/2022 3:45 PM CD T Body Mass Index 26.61 01/22/2022 3:45 PM CDT Plan of Treatment Not on file Medical Devices Implanted Type Area Manager Machine Device Identifier Shelf Expiration Date Model / Serial / Lot Knee Implant Knee Implant Right: Knee Advance Directives For more information, please contact: [phone] Latest Code Status on File Code Status Date Activated Date Inactivated Comments Full Code 10/05/2019 7:31 PM 10/16/2019 3:21 PM Question Answer Comments Full Code: Discussed Code Status History Code Status Date Activated Date Inactivated Comments Full Code 10/05/2019 11:16 AM 10/05/2019 7:31 PM Question Answer Comments Full Code: Discussed
--- OUTSIDE RECORDS SUMMARY | 2023-11-14 08:17 | XMS_ITS | Clinical Summary ---
Author Name Unknown Organization [facility] Address [address] [place] [address] Care Team Providers Care Oncology Nurse Navigator Name Role Phone Unavailable Primary Care Provider Unavailabl e Source Comments Patient records contain information from all sites at [facility]. For routine questions regarding patient records, call [phone] during business hours, M-F 8:00 AM - 5:00 PM Central Time. Record requests for emergency care only can be directed to [phone] at any time.[facility] Allergies Active Allergy Reactions Criticality Noted Date Comments Lisinopril Other (see comments) 05/24/2018 Pneumococcal Vaccine Other (see comments) 06/07 unknown Pollen Extracts Other (see comments) 06/07/2019 Sulfa (Sulfonamide Antibiotics) Other (see comments) 05/24/2018 Medications Medication Sig Dispensed Refills Start Date End Date Status levothyroxine (SYNTHROID, LEVOTHROID) 88 mcg tablet Take 88 mcg by mouth daily. 3 05/02/2019 Active ewlrlisn-atg-jywk-FA -lutein 8 mg iron-400 mcg-300 mcg tablet [...] How often do you attend chur or shinto services? Never 01/17/2022 Do you belong to any clubs o r organizations such as buddhist groups, unions, fraternal or athletic groups, or [...] and heating? Not hard at all 06/17/2023 [facility] of Occupat ional Health - Occupational Stress [...] your living situation today? I have a [facility] place to live 06/17/2023 Education Answer Date [...] 01/22/2022 3:45 PM CDT Plan of Treatment Health Maintenance Due Date Last Done Comments Thyroid Stimulating Hormone (TSH) test for thyroid function 06/07/2020 06/07/2019 Office Visit for Blood Pressure Check / Re-check 04/23/2022 01/22/2022 DTaP,Tdap,and Td Vaccines (2 - Td or Tdap) 07/19/2023 07/19/2013 Depression Screening (Annual PHQ-2) 09/27/2023 Fall Risk Screen (Annual) 09/27/2023 Pneumococcal vaccine (65+ years) Completed 11/01/2015, 06/27/2009 Hepatitis C Screening Completed 06/07/2019 Zoster Vaccines Completed 07/17/2021, 04/23/2021 COVID-19 Vaccine Completed 07/14/2023, 11/2021, 05/23/2021, Additional history exists Influenza Vaccine Completed 07/14/2023, , 10/22/2021, Additional history exists HPV Vaccines Aged Out No longer eligi ble based on patient's age to complete this topic Medical Devices Implanted Type Area Green Promotions Specialist Device Identifier Shelf Expiration Date Model / Serial / Lot Knee Implant Knee Implant Right: Knee Advance Directives For more information, please contact: [phone] Latest Code Status on File Code Status Date Activated Date Inactivated Comments Full Code 10/05/2019 7:31 PM 10/16/2019 3:21 PM Question Answer Comments Full Code: Discussed Code Status History Code Status Date Activated Date Inactivated Comments Full Code 10/05/2019 11:16 AM 10/05/2019 7:31 PM Question Answer Comments Full Code: Discussed
--- OUTSIDE RECORDS SUMMARY | 2023-11-14 08:17 | XMS_ITS | Encounter Summary ---
Author Name Unknown Organization [facility] Address [address] [place] [address] Care Team Providers Care Er Nurse Name Role Phone Unavailable Primary Care Provider Unavailabl e Reason for Visit * Outpatient (Routine) - Closed Specialty Diagnoses / Procedures Referred By Contact Referred To Contact Gastroenterology and Hepatology Diagnoses Colitis Ulcerative (HCC) Corona Riley M.D., M.S. [address] [place] [phone] [facility] Referral ID Status Reason Start Date Expiration Date Visits Re quested Visits Authorized [id number] Closed 03/18/2023 03/17/2026 1 1 Encounter Details Date Type Department Care Team (Latest Contact Info) Description 06/23/2023 10:00 AM CDT Telemedicine Division of Gastroenterology in [place], [place] [address] [place] [phone] Corona Riley M.D., M.S. [address] [place] [phone] Colitis Ulcerative (HCC) Social History Tobacco Use Types Packs/Day Years Used Date Smoking Tobacco: Never Smokeless Tobacco: Never Alcohol Use Standard Drinks/Week Comments Yes 0 [...] 01/17/2022 How often do you attend chur ch or orthodoxy services? Never 01/17/2022 Do you belong to any clubs o r organizations such as cheondoism groups, unions, fraternal or athletic groups, or [...] and heating? Not hard at all 06/17/2023 [facility] [place] of Occupat ional Health - Occupational Stress [...] your living situation today? I have a [facility] place to live 06/17/2023 Education Answer Date Recorded What is the highest level of school you have completed or the highest degree you have received? Bachelor's degree (e.g., BA, AB, BS) 06/07/2019 Sex and Gender Information Value Date Recorded Sex Assigned at Female 01/17/2022 10:27 AM CDT Gender Identity Female 01/17/2022 10:27 AM CDT Sexual Orientation Straight 01/17/2022 10 :27 AM CDT documented as of this encounter Progress Notes * Corona Riley M.D., M.S. - 06/23/2023 10:00 AM CDT OUTPATIENT IBD ESTABLISHED VISIT SUBJECTIVE DATE OF CONSULTATION: 06/23/2023 REFERRING PROVIDER: Corona Riley M.D., * PRIMARY CARE PROVIDER: No primary care provider on file. CHIEF COMPLAINT/REASON FOR VISIT Ulcerative colitis HISTORY OF PRESENT ILLNESS Petra Paris is a 77 y.o. female from [place], [place] who I am seeing virtually for annual exam for Ulcerative Colitis. She was originally diagnosed with Ulcerative Colitis in 2016 and was onbalsalazide, but then in February 2018, she developed acute diverticulitis with perforation and underwent a lower anterior resection with primary anastomosis and a diverting loop ileostomy. 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 During her visit at [facility] in June 2019, we noted that she has evidence of moderate ibarra colonic inflammation with biopsies confirming mild to moderate active chronic colitis with no dysplasia. We started her on vedolizumab and she received her first infusion July 17, 2019. Initially she was on every 8 weeks regimen, but she had persistent diarrhea and was requiring 2 rounds of prednisone. Therefore I checked a level of vedolizumab and it was low and had increased it to every 4 weeks.She started the every 4 weeks regimen in end of November 2019. Interim History: Since last visit, she has been doing very well. She continues to have 1 bowel movement 2 per day without any abdominal pain. She denies any unintentional weight loss. Her appetite is pretty good. Shestill lives with her son. 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 She continues with the vedolizumab the every 4 weeks as prescribed by Dr. Macias. REVIEW OF SYSTEMS REVIEW OF SYSTEMS I have reviewed the patient's past medical, surgical, medication list, allergies, social, and family history and updated them in the electronic medical system. OBJECTIVE VITAL SIGNS not currently . There is no height or weight on file to calculate BMI. PHYSICAL EXAMINATION Not done DIAGNOSTICS Labs: Leukocytes Date Value Ref Range Status 06/09/2023 5.2 3.4 - 9.6 x10(9)/L Final Hemoglobin Date Value Ref Range Status 06/09/2023 14.2 11.6 - 15.0 g/dL Final Platelet Count Date Value Ref Range Status 06/09/2023 163 157 - 371 x10(9)/L Final Aspartate Aminotransferase (AST), S Date Value Ref Range Status 06/09/2023 30 8 - 43 U/L Final Alanine Aminotransferase (ALT), S Date Value Ref Range Status 06/09/2023 28 7 - 45 U/L Final Creatinine Date Value Ref Range Status 06/09/2023 1.27 (H) 0.59 - 1.04 mg/dL Final C-Reactive Protein (CRP), S Date Value Ref Range Status 06/09/2023 <3.0 <5.0 mg/L Final Alkaline Phosphatase, S Date Value Ref Range Status 06/09/2023 59 35 - 104 U/L Final Albumin, S Date Value Ref Range Status 01/20/2022 4.9 3.5 - 5.0 g/dL Final Bilirubin, Total, S Date Value Ref Range Status 01/20/2022 0.4 <=1.2 mg/dL Final Iron Date Value Ref Range Status 01/20/2022 108 35 - 145 mcg/dL Final Total Iron Binding Capacity Date Value Ref Range Status 01/20/2022 330 250 - 400 mcg/dL Final Percent Saturation Date Value Ref Range Status 01/20/2022 33 14 - 50 % Final Ferritin, S Date Value Ref Range Status 01/20/2022 45 11 - 307 mcg/L Final 25-Hydroxy D Total Date Value Ref Range Status 01/20/2022 77 ng/mL Final Comment: Interpretation: 51-80 ng/mL (increased risk of hypercalciuria) ----REFERENCE VALUE---- 25-HYDROXY D TOTAL (D2+D3) Optimum levels in the healthy population are 20-50, patients with bone disease may benefit from higher levels within this range. ----ADDITIONAL INFORMATION---- This test was developed and its performance characteristics determined by [facility] in a manner consistent with CLIA requirements. This test has not been cleared or approved by the U.S. Food and Drug Administration. Vitamin B12 Assay, S Date Value Ref Range Status 01/20/2022 >1400 (H) 180 - 914 ng/L Final Comment: ----ADDITIONAL INFORMATION---- In patients being evaluated for vitamin B12 deficiency who have intrinsic factor blocking antibodies (IFBA), false elevations of B12 may occur due to IFBA interference thus potentially obscuring a physiological deficiency of B12. If observed B12 concentrations are discordant with clinical presentation, measurement of methylmalonic acid (MMA) should be considered. Procedures: Impression Performed by: [facility]ATION Post-op Diagnoses: - The examined portion of the ileum was normal. Biopsied. - Inactive ([facility] 0) quiescent ulcerative colitis. Biopsied. - One 3 mm polyp in the ascending colon, removed with a cold snare. Complete resection. Polyp tissue not retrieved. - Diverticulosis from sigmoid to transverse colon. - Pseudopolyps in the rectum and in the sigmoid colon. Pathology: Recent Results (from the past 720 hour(s)) Surgical Pathology Status: None Result Value Report electronically signed by Mckenzie Santiago M.D., Ph.D. I verify that I have examined all relevant slides/materials for the specimen(s) and rendered or confirmed the diagnosis. Gross Description A: Received in formalin labeled with the patient's name, medical record number, and small bowel-terminal ileum are two pale boogie-pinkirregular soft tissues, 0.3 x 0.2 x 0.1 cm and 0.3 x 0.3 x 0.1 cm. The specimens are submitted en toto in cassette A1. Grossed by AJB. B: Received in formalin labeled with the patient's name, medical record number, and colon-cecum, ascending colon are six pale boogie-pinkirregular soft tissues, ranging from 0.2-0.6 cm in greatest dimension. The specimens are submitted en toto in cassette B1. Grossed byAJB. C: Received in formalin labeled with the patient's name, medical record number, and colon-transverse colon are five pale boogie-pinkirregular soft tissues, ranging from 0.2-0.4 cm in greatest dimension. The specimens are submitted en toto in cassette C1. Grossed byAJB. D: Received in formalin labeled with the patient's name, medical record number, and colon-descending colon are five pale boogie-pinkirregular soft tissues, ranging f rom 0.2-0.5 cm in greatest dimension. The specimens are submitted en toto in cassette D1. Grossed byAJB. E: Received in formalin labeled with the patient's name, medical record number, and colon-sigmoid, rectum are six pale boogie-pinkirregular soft tissues, ranging from 0.3-0.5 cm in greatest dimension. The specimens are submitted en toto in cassette E1. Grossed byAJB. Interpretation FINAL DIAGNOSIS A. Small bowel, Terminal ileum, endoscopic biopsy: Ileal mucosa without diagnostic abnormality. No dysplasia. B. Colon, Cecum, Ascending, endoscopic biopsy: Colonic mucosa without diagnostic abnormality. No dysplasia. C. Colon, Transverse, endoscopic biopsy: Colonic mucosa without diagnostic abnormality. No dysplasia. D. Colon, Descending, endoscopic biopsy: Colonic mucosa without diagnostic abnormality. No dysplasia. E. Colon, Sigmoid, Rectum, endoscopic biopsy: Colonic mucosa without diagnostic abnormality. No dysplasia. Pre-Biologic/Immunosuppression workup includes: TPMT - No results found for: TPMTGENORB Hepatitis B - HBs Antibody, S Date Value Ref Range Status 06/07/2019 Negative Final Comment: Patient is presumed to be not immune to infection with HBV. ----REFERENCE VALUE---- Unvaccinated: Negative Vaccinated: Positive HBs Antigen, S Date Value Ref Range Status 06/07/2019 Negative Negative Final TB - No results found for: QUANTTBGPBR IBD Preventative Health: Immunization History Administered Date(s) Administered SARS-COV-2 (COVID-19) - VeriTran (12 years or older) 11/09/2020, 11/30/2020, 05/23/2021, 02/27/2022 Smoking status: Social History Tobacco Use Smoking Status Never Smokeless Tobacco Never Last Surveillance Colonoscopy: yes, date: 06/09/2023 ASSESSMENT / PLAN #1 Colitis Ulcerative (HCC) Petra Paris is a 77 y.o. female who I am seeing virtually right now for her annual follow-up of her ulcerative colitis. She continues on vedolizumab every 4 weeks with no flare-ups and has not hadany recent steroid use. She has been doing very well. Her colonoscopy revealed inactive ulcerative colitis and her biopsies revealed normal colonic mucosa with no evidence of inflammation histologically. Therefore the patient remains to be in deep remission on vedolizumab every 4 weeks. At this point I recommend that she continues with vedolizumab every 4 weeks as she has been doing. Her next colonoscopy for surveillance should be in 2-3 years. The patient can continue her followupswith her local outbound sales advisor and does not need to return to [facility]. I communicated this with the patient and she is very agreeable to that plan. The consultative practice model of care was discussed with the patient and final recommendations have been shared with the patient and/or referring providers. The patient was instructed to continue to follow with their local team or to establish care for longitudinal gastroenterology and hepatologycare locally. No follow up at [facility] is planned for this indication. Time of visit with patient today was: Total Time: 20 minutes, of which more than 50% was for treatment and counseling. PATIENT EDUCATION Ready to learn, no apparent learning barriers were identified; learning preferences include listening. Explained diagnosis and treatment plan; patient expressed understanding of the content. Corona Riley M.D., M.S. CC: Corona Riley M.D., M.S. documented in this encounter Plan of Treatment Not on file documented as of this encounter Visit Diagnoses Diagnosis Colitis Ulcerative (HCC) documented in this encounter
--- OUTSIDE RECORDS SUMMARY | 2023-11-14 08:18 | XMS_ITS | Encounter Summary ---
Author Name Unknown Organization [facility] Address [address] [place] [id number] Care Team Providers Care Insurance Marketing Rep Name Role Phone Unavailable Primary Care Provider Unavailabl e Encounter Details Date Type Department Care Team (Latest Contact Info) Description 06/09/2023 1:18 PM CDT - 06/09/2023 11:59 PM CDT Hospital Encounter Department of Laboratory Medicine and Pathology, [facility], in [place], [place] [address] [place] [address] Corona Riley M.D., M.S. [address] [place] [address] Colitis Ulcerative (HCC) Discharge Disposition: Home or Self Care Social History Tobacco Use Types Packs/Day Years [...] often do you attend chur ch or methodist services? Never 01/17/2022 Do you belong to any clubs o r organizations such as zoroastrian groups, unions, fraternal or athletic groups, or [...] food, housing, medical care, and heating? Not very hard 01/17/2022 [facility] of Occupat ional Health - Occupational Stress [...] to strenuous exercise (like a brisk walk)? 4 days 01/17/2022 On average, how many minutes do you engage in exercise at this level? 60 min 01/17/2022 Hunger Vital Sign Answer Date Recorded Within the past 12 months, y ou worried that your food would run out before you got the money to buy more. Never true 01/18/20 22 Within the past 12 months, t he food you bought just didn't last and you didn't have money to get more. Never true 01/17/2022 PRAPARE - Transportation Answer Date Re corded In the past 12 months, has l ack of transportation kept you from medical appointments or from getting medications? No 12/27 In the past 12 months, has l ack of transportation kept you from meetings, work, or from getting things needed for daily living? No 01/17/2022 Housing Stability Vital Sign Answer Iain e Recorded In the last 12 months, was t here a time when you were not able to pay the mortgage or rent on time? No 01/17/2022 In the last 12 months, how many places have you lived? 1 01/17/2022 In the last 12 months, was t here a time when you did not have a steady place to sleep or slept in a usp (including now)? No 01/17/2022 Nutrition Answer Date Recorded Nutrition: EVOO Fat Source No 01/17 On average, how many serving s of fruits and vegetables do you eat per day (serving size is equal to 1 cup or approximately the size of a tennis ball)? 0-1 01/17/2022 Dental Answer Date Recorded Dental: Regular Dentist No 01/18/20 Employment Answer Date Recorded Employment status Retired 01/17/2022 Education Answer Date Recorded What is the highest level of school you have completed or the highest degree you have received? Bachelor's degree (e.g., BA, AB, BS) 06/07/2019 Sex and Gender Information Value Date Recorded Sex Assigned at Female 01/17/2022 10:27 AM CDT Gender Identity Female 01/17/2022 10:27 AM CDT Sexual Orientation Straight 01/17/2022 10 :27 AM CDT documented as of this encounter Medications at Time of Discharge Medication Sig Dispensed Refills Start Date End Date acetaminophen (TYLENOL) 500 mg tablet Take 2 tablets (1,000 mg total) by mouth every 6 (six) hours as needed for pain. 0 10/16/2019 amLODIPine (NORVASC) 5 mg tablet Take 5 mg by mouth daily. 0 09/04/2020 artificial tears with lanolin (REFRESH P.M.) ophthalmic ointment 0.5 inches 3 (three) times a day as needed for dry eyes. 0 gabapentin (NEURONTIN) 100 mg capsule 0 10/29/2020 levothyroxine (SYNTHROID, LEVOTHROID) 88 mcg tablet Take 88 mcg by mouth daily. 3 05/02/2019 nsdecrhy-rte-lhrp-FA-karo tein 8 mg iron-400 mcg-300 mcg tablet Take by mouth. 0 05/27/2018 omeprazole 20 mg tablet,delayed release (DR/EC) Take 20 mg by mouth. 0 05/27/2018 polyethylene glycol-electrolytes (GoLYTELY) 236-22.74-6.74 -5.86 gram solutionIndications:Col itis Ulcerative (HCC) Drink 1st portion of prep at 6 PM the evening before. 2nd portion must be started 3 hours before and finished 2 hours prior to report time 4000 mL 0 03/18/2023 potassium citrate (UROCIT-K) 5 mEq (540 mg) ER tablet Take 5 mEq by mouth 2 (two) times a day with meals. 0 TURMERIC ORAL Take 1 capsule by mouth daily. 0 vedolizumab (ENTYVIO) 60 mg/mL injection 300 mg IV week 0, 2, 6 for loading, followed by every 8 weeks for maintenance therapy 0 07/13/2019 documented as of this encounter Plan of Treatment Not on file documented as of this encounter Procedures Procedure Name Priority Date/Time Associated Diagnosis Comments CBC WITH DIFFERENTIAL, B Routine 023 1:35 PM CDT Colitis Ulcerative (HCC) C-REACTIVE PROTEIN (CRP), S/P Routine 06/09/2023 1:35 PM CDT Colitis Ulcerative (HCC) BUN (BLOOD UREA NITROGEN), S/P Routine 06/09/2023 1:35 PM CDT Colitis Ulcerative (HCC) ALANINE AMINOTRANSFERASE (ALT), S/P Routine 06/09/2023 1:35 PM CDT Colitis Ulcerative (HCC) ASPARTATE AMINOTRANSFERASE (AST), S/P Routine 06/09/2023 1:35 PM CDT Colitis Ulcerative (HCC) ALKALINE PHOSPHATASE, S/P Routine 06/09/2023 1:35 PM CDT Colitis Ulcerative (HCC) CREATININE WITH EGFR, S/P Routine 06/09/2023 1:35 PM CDT Colitis Ulcerative (HCC) documented in this encounter Results * CRP (C-Reactive Protein) (06/09/2023 1:35 PM CDT) C-Reactive Protein (CRP), S <3.0 <5.0 mg/L 06/09/2023 2:38 PM CDT DTL Blood (Blood, Venous) 06/09/2023 1:35 PM CDT 06/09/2023 2:19 PM CDT Corona Riley M.D., M.S. LAB BLOOD ADD -ON Performing Organization Address City/[facility] Co de Phone Number [facility] [address] [place], [place] [phone] [place] [address] [place] [address] * (ABNORMAL) Creatinine with Estimated GFR (06/09/2023 1:35 PM CDT) Creatinine 1.27(H) 0.59 - 1.04 mg/dL 06/09/2023 2:38 PM CDT DTL Estimated GFR (eGFR) 43(L) >=60 mL/min/BSA 06/09/2023 2:38 PM CDT DTL Comment: Estimated GFR calculated using the 2020 CKD_EPI creatinine equation. Blood (Blood, Venous) 06/09/2023 1:35 PM CDT 06/09/2023 2:19 PM CDT Corona Riley M.D., M.S. LAB BLOOD ADD -ON Performing Organization Address City/[facility]/ZIP Co de Phone Number [facility] [address] [place], [place] [address] [address] [place] [address] * CBC with Differential, Blood (06/09/2023 1:35 PM CDT) Hemoglobin 14.2 11.6 - 15.0 g/dL 06/09/2023 2:10 PM CDT DTL Hematocrit 42.6 35.5 - 44.9 % 06/09/2023 2:10 PM CDT DTL Erythrocytes 4.47 3.92 - 5.13 x10(12)/L 06/09/2023 2:10 PM CDT DTL MCV 95.3 78.2 - 97.9 fL 06/09/2023 2:10 PM CDT DTL RBC Distrib Width 12.9 12.2 - 16.1 % 06/09/2023 2:10 PM CDT DTL Platelet Count 163 157 - 371 x10(9)/L 06/09/2023 2:10 PM CDT DTL Leukocytes 5.2 3.4 - 9.6 x10(9)/L 06/09/2023 2:10 PM CDT DTL Neutrophils 3.69 1.56 - 6.45 x10(9)/L 06/09/2023 2:10 PM CDT DHPM Lymphocytes 0.98 0.95 - 3.07 x10(9)/L 06/09/2023 2:10 PM CDT DTL Monocytes 0.49 0.26 - 0.81 x10(9)/L 06/09/2023 2:10 PM CDT DTL Eosinophils 0.06 0.03 - 0.48 x10(9)/L 06/09/2023 2:10 PM CDT DTL Basophils <0.03 0.01 - 0.08 x10(9)/L 06/09/2023 2:10 PM CDT DTL Blood (Blood, Venous) 06/09/2023 1:35 PM CDT 06/09/2023 2:03 PM CDT Corona Riley M.D., M.S. LAB BLOOD ADD -ON [facility] [address] [place] [address], [place] DTL [facility] [address] [place] [address] [facility] [address] [place] [address] * (ABNORMAL) BUN (Blood Urea Nitrogen) (06/09/2023 1:35 PM CDT) BUN (Blood Urea Nitrogen), S 24(H) 6 - 21 mg/dL 06/09/2023 2:38 PM CDT DTL Blood (Blood, Venous) 06/09/2023 1:35 PM CDT 06/09/2023 2:19 PM CDT Corona Riley M.D., M.S. LAB BLOOD ADD -ON Performing Organization Address City/[facility]/ZIP Co de Phone Number [facility] [address] [place], [place] [phone] [place] [address] [address] [place] [address] * AST (Aspartate Aminotransferase) (06/09/2023 1:35 PM CDT) Aspartate Aminotransferase (AST), S 30 8 - 43 U/L 06/09/2023 2:38 PM CDT DTL Blood (Blood, Venous) 06/09/2023 1:35 PM CDT 06/09/2023 2:19 PM CDT Corona Riley M.D., M.S. LAB BLOOD ADD -ON [facility] [address] [place], [place] [phone] [place] [address] [address] [place] [address] * ALT (Alanine Aminotransferase) (06/09/2023 1:35 PM CDT) Alanine Aminotransferase (ALT), S 28 7 - 45 U/L 06/09/2023 2:38 PM CDT DTL Blood (Blood, Venous) 06/09/2023 1:35 PM CDT 06/09/2023 2:19 PM CDT Corona Riley M.D., M.S. LAB BLOOD ADD -ON Performing Organization Address City/[facility]/ZIP Co de Phone Number [facility] [address] [place] [address], [address] [address] * Alkaline Phosphatase (06/09/2023 1:35 PM CDT) Alkaline Phosphatase, S 59 35 - 104 U/L 06/09/2023 2:38 PM CDT DTL Blood (Blood, Venous) 06/09/2023 1:35 PM CDT 06/09/2023 2:19 PM CDT Corona Riley M.D., M.S. LAB BLOOD ADD -ON Performing Organization Address City/[facility]/ZIP Co de Phone Number [facility] [address] [place] [address], [facility] [address] [address] documented in this encounter Visit Diagnoses Diagnosis Colitis Ulcerative (HCC) documented in this encounter
--- OUTSIDE RECORDS SUMMARY | 2023-11-14 08:18 | XMS_ITS | Encounter Summary ---
Author Name Unknown Organization [facility] Address [address] [place] [address] Care Team Providers Care Mechanical Design Engineer Facilities Name Role Phone Unavailable Primary Care Provider Unavailabl e Encounter Details Date Type Department Care Team (Latest Contact Info) Description 06/09/2023 11:15 AM CDT Ancillary Procedure Department of Gastroenterology Social History Tobacco Use Types Packs/Day Years [...] Never 01/17/2022 How often [facility] you attend [facility] or alevism services? Never 01/17/2022 Do you belong to any clubs o r organizations such as yazdanism groups, unions, fraternal or athletic groups, or [...] care, and heating? Not very hard 01/17/2022 [facility] of Occupat ional Health - Occupational [...] place to sleep or slept in a longterm (including now)? No 01/17/2022 Nutrition Answer Date [...] AM CDT documented as of this encounter Plan of Treatment Not on file documented as of this encounter Procedures Procedure Name Priority Date/Time Associated Diagnosis Comments GASTROENTEROLOGY IMAGE EXAM Routine 06/09/2023 11:15 AM CDT documented in this encounter Results * Colon, Sigmoid colon Colonoscopy-Gastroenterology Image Exam (06/09/2023 11:15 AM CDT) 06/09/2023 11:1 4 AM CDT Narrative IIMS - 06/09/2023 12:00 PM CDT This order has been created and auto-finalized to support the import of images acquired without order. The clinical documentation to support these images can be found on the encounter that produced images. Provider Not In System IMG NON RAD IMAGI NG PROCEDURES IIMS NA documented in this encounter Visit Diagnoses Not on filedocumented in this encounter
--- OUTSIDE RECORDS SUMMARY | 2023-11-14 08:18 | XMS_ITS | Encounter Summary ---
Author Name Unknown Organization [facility] Address [address] [place] [address] Care Team Providers Care Asset Recovery Specialist Name Role Phone Unavailable Primary Care Provider Unavailabl e Encounter Details Date Type Department Care Team (Late st Contact Info) Description 06/09/2023 11:22 AM CDT Anesthesia Event Division of Gastroenterology in [place], [place] [address] [place] [phone] Nany Wang APRN, DIEGO, MNA [address] [place] [phone] Anesthesia Record Procedure Summary Procedure Name Responsible Anesthesiologist Anesthesia Start Time Anesthesia Stop Time COLONOSCOPY Nany Wang A PRYumi, DIEGO, MNA 06/09/23 1122 06/09/23 1148 Events Date Time Event Comment 06/09/2023 1122 An Start Machine/Equipme nt Checked Infection Precautions Followed Procedure/Site Verified NPO Status Verified Supine Standard ASA Monitors Applied 1127 Turnover to Proceduralist 1129 Proc Start 1141 Turnover to ANE Staff 1142 Proc Fin 1144 an stop data 1148 An End I completed my handoff to the receiving staff during which we 1. Identified the patient 2. Identified the responsible provider 3. Reviewed the pertinent medical history 4. Discussed the surgical course 5. Reviewed intra-op anesthesia management and issues during anesthesia 6. Set expectations for post-procedure period 7. Allowed opportunity for questions and acknowledgement of understanding. Meds Name Total lidocaine 2% (mg) injection 100 mg ondansetron PF 4 mg/2 mL injection 4 mg propofol 10 mg/mL injection 30 mg propofol 10 mg/mL infusion 163.4 mg Lactated Ringers Free Drip 200 mL * Agents No agents on file. * Blood No blood administrations on file. Lines, Drains, and Airways Type Details Placement Removal Peripheral IV Placement Date: 05/28 12/17; Placement Time: 111; Catheter Size: 20 G; Orientation: Anterior, Distal, Lower, Right; Site Prep: Chlorhexidine (Preferred); Inserted by: Char; Removal Date: 06/09/23; Removal Time: 1255 06/09/23 1112 by Char Olguin, R.N. 06/09/23 1255 by Char Olguin, R.N. documented in this encounter Social History Tobacco Use Types Packs/Day Years [...] How often do you attend chur or congregation services? Never 01/17/2022 Do you belong to any clubs o r organizations such as moravian groups, unions, fraternal or athletic groups, or [...] care, and heating? Not very hard 01/17/2022 [facility] [place] [facility] Occupat [facility] - Occupational Stress [...] place to sleep or slept in a assisted (including now)? No 01/17/2022 Nutrition Answer Date [...] AM CDT documented as of this encounter OR Notes * Anesthesia Postprocedure Evaluation - Nany Wang APRN, CRNA, MNA - 06/09/2023 11:49 AM CDT Patient: Petra Paris Procedure Summary Date: 06/09/23 Room / Location: Division of Gastroenterology in [place], [place] Anesthesia Start: 1122 Anesthesia Stop: 1148 Procedure: COLONOSCOPY Diagnosis: Colitis Ulcerative (HCC) Scheduled Providers: Tejas Farr M.D., M.H.P.E.; Nany Wang APRN, CRNA, MNA Responsible Provider: Nany Wang APRN, CRNA, MNA Anesthesia Type: MAC ASA Status: 2 Anesthesia Type: MAC Last vitals Vitals Value Taken Time BP 97/48 06/09/23 1147 Temp Pulse 68 06/09/23 1148 Resp 15 06/09/23 1148 SpO2 93 % 06/09/23 1148 Vitals shown include unvalidated device data. Please reference Vitals flowsheet for most recent vital signs. Anesthesia Post Evaluation Patient Disposition: dismissal Cardiovascular status: hemodynamics (HR & BP) acceptable Respiratory status: patent airway with spontaneous effort Temperature: normothermic Oxygen requirements: room air Level of consciousness: awake Pain score: pain adequately controlled and/or at baseline Post Op nausea/vomiting: none Hydration status: euvolemic * Anesthesia Preprocedure Evaluation - Maylin Harden M.D. - 06/09/2023 10:07 AM CDT Preprocedure Anesthesia & H&P Assessment Procedure Summary Date/Time: 06/09/23 1145 Scheduled providers: Tejas Farr M.D., M.H.P.E.; Nany Wang APRN, CRNA, MNA Procedure: COLONOSCOPY Diagnosis: Colitis Ulcerative (HCC) [K51.90] Location: Division of Gastroenterology in [place], [place] Pertinent components of the patient's history including current problem list, medical history, surgical history, family history, social history, medications and allergies were reviewed. Present illness and pre-op diagnosis were confirmed. The planned surgery / procedure was verified with the patient / legal guardian. The patient's general health condition remains unchanged RELEVANT COMORBID CONDITIONS CV (+) Hypertension NOS RENAL/REPRO (+) Chronic Kidney Disease Stage 3 Glomerular Filtration Rate 30 To 59 (HCC) (+) Osteodystrophy Renal ENDO (+) Hypothyroidism GI (+) Colitis Ulcerative (HCC) (+) Gastroesophageal Reflux Disease Digestive (+) Diverticulosis Other (+) Colectomy Sigmoid Colon Status Post (+) Takedown Ileostomy Status Post (Reversal) OBJECTIVE PHYSICAL EXAMINATION Airway (HEENT) Mallampati: I TM Distance: >3 FB Neck ROM: Full Mouth Opening: >3 cm Upper Lip Bite Test Class: I Cardiovascular Rhythm: Regular Rate: Normal Cardiovascular Assessment: cardiovascular normal Functional Capacity: >4 METS Pulmonary Pulmonary Assessment: Clear General / Constitutional Constitutional Assessment: Thin General State of Health:: healthy appearing and calm Neurological Neurologic Assessment: alert and alert and oriented x 3 Dental Dental Assessment: upper dentures and lower dentures ASSESSMENT / PLAN ANESTHESIA PLAN ASA: 2 Anesthesia Plan: MAC Patient seen and allergies reviewed, anesthesia plan and risks discussed directly with patient /legal guardian or through an interpreter for the deaf. Risks/Benefits/Alternatives of Blood transfusion discussed with patient / legal guardian, includingan opportunity to ask questions and/or decline some or all transfusion therapies. The patient / legal guardian consented to the use of all blood products, as deemed medically necessary Approval to Proceed: approved for anesthesia documented in this encounter Plan of Treatment Not on file documented as of this encounter Visit Diagnoses Not on filedocumented in this encounter Administered Medications Inactive Administered Medications - up to 3 most recent administrations Medication Order MAR Action Action Date Dose Rate Site Lactated Ringer's intravenous, Continuous Infusion: Per Instructions PRN, Starting on Wed06/09/23 at 1123, Anesthesia Intra-op New Bag 06/09/2023 11:23 AM CDT lidocaine (PF) (cardiac) injection intravenous, As needed, Starting on Wed06/09/23 at 1126, Anesthesia Intra-op Given 06/09/2023 11:27 AM CDT 40 mg Given 06/09/2023 11:26 AM CDT 60 mg ondansetron (PF) injection (ZOFRAN) intravenous, As needed, Starting on Wed06/09/23 at 1126, Anesthesia Intra-op Given 06/09/2023 11:26 AM CDT 4 mg propofol 10 mg/mL infusion (DIPRIVAN) intravenous, Continuous Infusion: Per Instructions PRN, Starting on Wed06/09/23 at 1123, Anesthesia Intra-op Rate/Dose Change 06/09/2023 11:28 AM CDT 125 mcg/kg/min 51.6 mL/hr New Bag 06/09/2023 11:23 AM CDT 150 mcg/kg/min 61.92 mL /hr propofoL injection (DIPRIVAN) intravenous, As needed, Starting on Wed06/09/23 at 1127, Anesthesia Intra-op Given 06/09/2023 11:27 AM CDT 30 mg documented in this encounter
--- OUTSIDE RECORDS SUMMARY | 2023-11-14 08:18 | XMS_ITS | Encounter Summary ---
Author Name Unknown Organization [facility] Address [address] [place] [address] Care Team Providers Care Senior Software Qa Engineer Name Role Phone Unavailable Primary Care Provider Unavailabl e Reason for Referral * Outpatient (Routine) - Closed Specialty Diagnoses / Procedures Referred By Contac t Referred To Contact Diagnoses Colitis Ulcerative (HCC) Procedures Colonoscopy Corona Riley M.D., M.S. [address] [place] [phone] [facility] Referral ID Status Reason Start Date Expiration Date Visits Re quested Visits Authorized [id number] Closed 03/18/2023 03/17/2024 1 1 Reason for Visit * Outpatient (Routine) - Closed Specialty Diagnoses / Procedures Referred By Contac t Referred To Contact Diagnoses Colitis Ulcerative (HCC) Procedures Colonoscopy Corona Riley M.D., M.S. 200 [place] [address] [facility] Referral ID Status Reason Start Date Expiration Date Visits Re quested Visits Authorized [id number] Closed 03/18/2023 03/17/2024 1 1 Encounter Details Date Type Department Care Team (Late st Contact Info) Description 06/09/2023 10:40 AM CDT - 06/09/2023 1:17 PM CDT Hospital Encounter Division of Gastroenterology in [place], [place] [address] [place] [phone] Corona Riley M.D., M.S. [address] [place] [phone] Tejas Farr M.D., M.H.P.E. [address] [place] [phone] Nany Wang, FORMAL WEAR RENTAL CLERK, TRAWL NET MAKER, MNA [address] [place] [address] Colitis Ulcerative (HCC) Discharge Disposition: Home or [...] How often do you attend chur or zoroastrianism services? Never 01/17/2022 Do you belong to any clubs o r organizations such as yazidi groups, unions, fraternal or athletic groups, or [...] care, and heating? Not very hard 01/17/2022 [facility] [place] of Occupat ional Health - Occupational Stress [...] place to sleep or slept in a custodial (including now)? No 01/17/2022 Nutrition Answer Date [...] AM CDT documented as of this encounter Last Filed Vital Signs Vital Sign Reading [...] 10.8 oz) 023 10:51 AM CDT Height - - Body Mass Index 26.61 01/22/2022 3:45 PM CDT documented in this encounter Medications at Time of Discharge [...] 88 mcg by mouth daily. 3 05/02/2019 axctyroi-kpt-zjvw-FA-karo tein 8 mg iron-400 mcg-300 mcg tablet [...] Procedure Name Priority Date/Time Associated Diagnosis Comments SURGICAL PATHOLOGY Routine 06/09/2023 11 :35 AM CDT COLONOSCOPY Routine 06/09/2023 11:14 AM CDT Colitis Ulcerative (HCC) COLONOSCOPY Routine 06/09/2023 11:14 AM CDT Colitis Ulcerative (HCC) documented in this encounter Results * Surgical Pathology (06/09/2023 11:35 AM CDT) 06/10/2023 4:33 PM CDT DTL Report electronically signed by Mckenzie Santiago M.D., Ph.D. I verify that I have examined all relevant slides/materi als for the specimen(s) and rendered or confirmed the diagnosis. 06/10/2023 4:33 PM CDT DTL Gross Description A: Received in formalin labeled with the patient's name, medical record number, and small bowel-termina l ileum are two pale boogie-pinkirreg ular soft tissues, 0.3 x 0.2 x 0.1 cm and 0.3 x 0.3 x 0.1 cm. The specimens are submitted en toto in cassette A1. ??Grossed by AJB. B: Received in formalin labeled with the patient's name, medical record number, and colon-cecum, ascending colon are six pale boogie-pinkirreg ular soft tissues, ranging from 0.2-0.6 cm in greatest dimension. The specimens are submitted en toto in cassette B1. Grossed byAJB. C: Received in formalin labeled with the patient's name, medical record number, and colon-transv erse colon are five pale boogie-pinkirreg ular soft tissues, ranging from 0.2-0.4 cm in greatest dimension. The specimens are submitted en toto in cassette C1. Grossed byAJB. D: Received in formalin labeled with the patient's name, medical record number, and colon-descen ding colon are five pale boogie-pinkirreg ular soft tissues, ranging from 0.2-0.5 cm in greatest dimension. The specimens are submitted en toto in cassette D1. Grossed byAJB. E: Received in formalin labeled with the patient's name, medical record number, and colon-sigmoi d, rectum are six pale boogie-pinkirreg ular soft tissues, ranging from 0.3-0.5 cm in greatest dimension. The specimens are submitted en toto in cassette E1. Grossed byAJB. 06/10/2023 4:33 PM CDT DTL Interpretation FINAL DIAGNOSIS A. ??Small bowel, Terminal ileum, endoscopic biopsy: ??Ileal mucosa without diagnostic abnormality. ??No dysplasia. B. Colon, Cecum, Ascending, endoscopic biopsy: ??Colonic mucosa without diagnostic abnormality. ??No dysplasia. C. Colon, Transverse, endoscopic biopsy: ??Colonic mucosa without diagnostic abnormality. ??No dysplasia. D. Colon, Descending, endoscopic biopsy: ??Colonic mucosa without diagnostic abnormality. ??No dysplasia. E. Colon, Sigmoid, Rectum, endoscopic biopsy: ??Colonic mucosa without diagnostic abnormality. ??No dysplasia. 06/10/2023 4:33 PM CDT DTL Biopsy (Colon) 06/09/2023 11 :35 AM CDT Biopsy (Colon) 06/09/2023 11 :37 AM CDT Biopsy (Colon) 06/09/2023 11 :38 AM CDT Biopsy (Colon) 06/09/2023 11 :39 AM CDT Biopsy (Colon) 06/09/2023 11 :40 AM CDT Tejas Farr M.D., M.H.P.E. LAB SURG PATH ORDERABLES [facility] [address] [place] [address], [facility] DTL [address] [facility] [address] [place] [address] * Colonoscopy (06/09/2023 11:14 AM CDT) 06/09/2023 11:1 4 AM CDT Impressions [facility] - 06/09/2023 11:49 AM CDT Post-op Diagnoses: ? - The examined portion of the ileum was normal. Biopsied. ? - Inactive (Mcqueen Score 0) quiescent ulcerative colitis. Biopsied. ? - One 3 mm polyp in the ascending colon, removed with a cold snare. ? Complete resection. Polyp tissue not retrieved. ? - Diverticulosis from sigmoid to transverse colon. ? - Pseudopolyps in the rectum and in the sigmoid colon. Narrative [facility] - 06/09/2023 11:49 AM CDT [facility] 2 GI Patient Name: Petra Paris Date of : 1945 Age: 77 Gender: Female Procedure Date: 06/09/2023 Procedure: ? Colonoscopy Providers: ? Tejas Farr MD Referring Provider: ?Corona Riley MD Pre-op Diagnoses: ?High risk colon cancer surveillance: Ulcerative ? pancolitis of 8 (or more) years duration Recommendation: ? - The patient will be observed post-procedure, until all discharge ? criteria are met. ? - Await pathology results. ? - Return to referring physician as previously scheduled. Findings: ? The terminal ileum appeared normal. Biopsies were taken with a cold ? forceps for histology. ? Inflammation was not found based on the endoscopic appearance of the ? mucosa in the colon. This was graded as Mcqueen Score 0 (normal or inactive ? disease), and when compared to the previous examination, the findings ? are quiescent. Biopsies were taken with a cold forceps from the entire ? colon for ulcerative colitis surveillance. These biopsy specimens were ? sent to Pathology. ? A 3 mm polyp was found in the ascending colon. The polyp was flat. The ? polyp was removed with a cold snare. Resection was complete, but the ? polyp tissue was not retrieved as it was lost in a puddle of stool. ? Many large-mouthed diverticula were found from sigmoid to transverse ? colon. ? Diffuse pseudopolyps were found in the rectum and in the sigmoid colon. Procedural Details: ? The patient was seen, evaluated, history reviewed, airway and heart-lung ? exams were performed by licensed provider and were satisfactory for ? planned level of sedation care. ? The risks, benefits and alternatives for the procedure and sedation were ? discussed and informed consent was obtained. A procedural pause was ? conducted in the presence of assisting personnel to verify the correct ? patient identity and procedure to be performed. Throughout the ? procedure, the patient's blood pressure, pulse, and oxygen saturations ? were monitored continuously. The Pediatric Colonoscope was introduced ? through the anus and advanced to the the terminal ileum, with ? identification of the appendiceal orifice and IC valve. The colonoscopy ? was performed without difficulty. The patient tolerated the procedure ? well. The quality of the bowel preparation was good. The quality of the ? bowel preparation was evaluated using the BBPS ([place] Bowel Preparation ? Scale) with scores of: Right Colon = 3, Transverse Colon = 3 and Left ? Colon = 3 (entire mucosa seen well with no residual staining, small ? fragments of stool or opaque liquid). The total BBPS score equals 9. Complications: ? No immediate complications. Estimated Blood Loss: ?Estimated blood loss: none. Attending Participation: I personally performed the entire procedure. Tejas Farr MD 06/09/2023 11:49:09 AM This report has been signed electronically. Number of Addenda: 0 Note Initiated On: 06/09/2023 11:14 AM Corona Riley M.D., M.S. GI PROCEDURE ORDERABLES Performing Organization Address City/State/[facility] Co ny Phone Number [facility] NA documented in this encounter Visit Diagnoses Diagnosis Colitis Ulcerative (HCC) documented in this encounter
--- OUTSIDE RECORDS SUMMARY | 2023-11-14 08:18 | XMS_ITS | Encounter Summary ---
Author Name Unknown Organization [facility] Address [address] [place] [address] Care Team Providers Care Chart Collector Name Role Phone Unavailable Primary Care Provider Unavailabl e Reason for Referral * Outpatient (Routine) - Closed Specialty Diagnoses / Procedures Referred By Contact Referred To Contact Gastroenterology and Hepatology Diagnoses Colitis Ulcerative (HCC) Corona Riley M.D., M.S. [address] [place] [address] [facility] Referral ID Status Reason Start Date Expiration Date Visits Re quested Visits Authorized [id number] Closed 03/18/2023 03/17/2026 1 1 Scheduling Instructions 60 min please after tests If virtual visit is scheduled, please schedule 48 business hours after scope (if scheduled). * Outpatient (Routine) - Closed Specialty Diagnoses / Procedures Referred By Contac t Referred To Contact Diagnoses Colitis Ulcerative (HCC) Procedures Colonoscopy Corona Riley M.D., M.S. [address] [place] [phone] [facility] Referral ID Status Reason Start Date Expiration Date Visits Re quested Visits Authorized [id number] Closed 03/18/2023 03/17/2024 1 1 Encounter Details Date Type Department Care Team (Latest Contact Info) Description 03/15/2023 Clinical Communication Division of Gastroenterology in [place], [place] 200 [place] [phone] Corona Riley M.D., M.S. 200 [place] [phone] Social History Tobacco Use Types Packs/Day Years [...] How often do you attend chur or mormonism services? Never 01/17/2022 Do you belong to any clubs o r organizations such as anabaptist groups, unions, fraternal or athletic groups, or [...] care, and heating? Not very hard 01/17/2022 [facility] - Occupational Stress Questionnaire Answer Date Recorded [...] place to sleep or slept in a senior care (including now)? No 01/17/2022 Nutrition Answer Date [...] as of this encounter Plan of Treatment Scheduled Referrals Name Type Priority Associated Diagnoses Order Schedule Gastroenterology and Hepatology office visit (clinic) Outpatient Referral Routine Colitis Ulcerative (HCC) Expected: 03/18/2023 (Approximate), Expires: 03/04/2025 documented as of this encounter Results * CRP (C-Reactive Protein) (06/09/2023 1:35 PM CDT) C-Reactive Protein (CRP), S <3.0 <5.0 mg/L 06/09/2023 2:38 PM CDT DTL Blood (Blood, Venous) 06/09/2023 1:35 PM CDT 06/09/2023 2:19 PM CDT Corona iRley M.D., M.S. LAB BLOOD ADD -ON [facility] [address] [place] [address], [facility] DTL [facility] [address] [place] [address] * (ABNORMAL) Creatinine with Estimated GFR (06/09/2023 1:35 PM CDT) Creatinine 1.27(H) 0.59 - 1.04 mg/dL 06/09/2023 2:38 PM CDT DTL Estimated GFR (eGFR) 43(L) >=60 mL/min/BSA 06/09/2023 2:38 PM CDT DTL Comment: Estimated GFR calculated using the 2020 CKD_EPI creatinine equation. Blood (Blood, Venous) 06/09/2023 1:35 PM CDT 06/09/2023 2:19 PM CDT Corona Riley M.D., M.S. LAB BLOOD ADD -ON [facility] [address] [place] [address], [facility] DTL [facility] [address] [place] [address] * CBC with Differential, Blood (06/09/2023 1:35 [...] LAB BLOOD ADD -ON Performing Organization Address City/[facility] Co de Phone Number [facility] [address] [place], [place] [phone] [place] [address] 200 [place], [place] [phone] [place] [address] * (ABNORMAL) BUN (Blood Urea Nitrogen) (06/09/2023 1:35 PM CDT) BUN (Blood Urea Nitrogen), S 24(H) 6 - 21 mg/dL 06/09/2023 2:38 PM CDT DTL Blood (Blood, Venous) 06/09/2023 1:35 PM CDT 06/09/2023 2:19 PM CDT Corona Riley M.D., M.S. LAB BLOOD ADD -ON Performing Organization Address [facility] Co de Phone Number [facility] [address] [place], [place] [address] [place] [address] 200 [place] [address] * AST (Aspartate Aminotransferase) (06/09/2023 1:35 PM CDT) Aspartate Aminotransferase (AST), S 30 8 - 43 U/L 06/09/2023 2:38 PM CDT DTL Blood (Blood, Venous) 06/09/2023 1:35 PM CDT 06/09/2023 2:19 PM CDT Corona Riley M.D., M.S. LAB BLOOD ADD -ON Performing Organization Address City/[facility] Co de Phone Number [facility] [address] [place] [address], [facility] [address] [place] [address] * ALT (Alanine Aminotransferase) (06/09/2023 1:35 PM CDT) Alanine Aminotransferase (ALT), S 28 7 - 45 U/L 06/09/2023 2:38 PM CDT DTL Blood (Blood, Venous) 06/09/2023 1:35 PM CDT 06/09/2023 2:19 PM CDT Corona Riley M.D., M.S. LAB BLOOD ADD -ON Performing Organization Address City/[facility] Co de Phone Number [facility] [address] [place] [address], [facility] [address] [place] [address] * Alkaline Phosphatase (06/09/2023 1:35 PM CDT) Alkaline Phosphatase, S 59 35 - 104 U/L 06/09/2023 2:38 PM CDT DTL Blood (Blood, Venous) 06/09/2023 1:35 PM CDT 06/09/2023 2:19 PM CDT Corona Riley M.D., M.S. LAB BLOOD ADD -ON Performing Organization Address City/[facility] Co de Phone Number [facility] [address] [place] [address], [facility] [address] [place] [address] documented in this encounter Visit Diagnoses Diagnosis Colitis Ulcerative (HCC)- Primary documented in this encounter
== END 2023-11-12 14:12 | disposition home or self-care (01) ==
LOC: NFLDREF 14:11
PROVIDERS: PCP Family Medicine; Referring Provider Family Medicine; Visit Provider Family Medicine
DX: D64.9 Anemia, unspecified (principal); E03.9 Hypothyroidism, unspecified; E53.8 Deficiency of other specified B group vitamins; E55.9 Vitamin D deficiency, unspecified; I10 Essential (primary) hypertension; R73.03 Prediabetes
CPT/HCPCS: 80053; 80061; 82306; 82607; 84443

== ENCOUNTER 2023-11-17 14:00 | Outpatient (RCR) | payer MEDICARE, SELFPAY ==
[2023-06-02 14:06] VITALS: BP 157/77; PULSE 75; RESP 16; TEMP 36; O2SAT 95
[2023-06-02] MEDS: VEDOLIZUMAB 300 MG, TUBING SECONDARY 1 EACH in 0.9 % SODIUM CHLORIDE 250 ml 250 ML 510 MG IVPB (14:44)
[2023-06-29 13:57] VITALS: BP 151/72; PULSE 81; RESP 16; TEMP 36.3; O2SAT 95
[2023-06-29] MEDS: VEDOLIZUMAB 300 MG, TUBING SECONDARY 1 EACH in 0.9 % SODIUM CHLORIDE 250 ml 250 ML 510 MG IVPB (14:57)
[2023-06-29] MEDS: 0.9 % SODIUM CHLORIDE 250 ml IV (14:58)
[2023-06-29] MEDS: SODIUM CHLORIDE 0.9 % (FLUSH) 10 ML SYRINGE IVF (15:45)
[2023-07-28 13:33] VITALS: BP 124/74; PULSE 71; RESP 16; TEMP 35.8; O2SAT 97
[2023-07-28] MEDS: VEDOLIZUMAB 300 MG, TUBING SECONDARY 1 EACH in 0.9 % SODIUM CHLORIDE 250 ml 250 ML 510 MG IVPB (14:27)
[2023-07-28] MEDS: 0.9 % SODIUM CHLORIDE 250 ml IV (14:29)
[2023-08-25 14:05] VITALS: BP 122/64; PULSE 62; RESP 16; TEMP 36.2; O2SAT 96
[2023-08-25] MEDS: SODIUM CHLORIDE 0.9 % (FLUSH) 10 ML SYRINGE IVF (14:46)
[2023-08-25] MEDS: 0.9 % SODIUM CHLORIDE 250 ml IV (14:46)
[2023-08-25] MEDS: VEDOLIZUMAB 300 MG, TUBING SECONDARY 1 EACH in 0.9 % SODIUM CHLORIDE 250 ml 250 ML 510 MG IVPB (14:46)
[2023-09-22 14:08] VITALS: BP 133/80; PULSE 70; RESP 16; TEMP 35.9; O2SAT 97
[2023-09-22] MEDS: 0.9 % SODIUM CHLORIDE 250 ml IV (14:47)
[2023-09-22] MEDS: VEDOLIZUMAB 300 MG, TUBING SECONDARY 1 EACH in 0.9 % SODIUM CHLORIDE 250 ml 250 ML 510 MG IVPB (14:47)
[2023-09-22] MEDS: SODIUM CHLORIDE 0.9 % (FLUSH) 10 ML SYRINGE IVF (14:48)
[2023-10-20 14:07] VITALS: BP 132/67; PULSE 75; RESP 16; TEMP 36.4; O2SAT 95
[2023-10-20] MEDS: VEDOLIZUMAB 300 MG, TUBING SECONDARY 1 EACH in 0.9 % SODIUM CHLORIDE 250 ml 250 ML 510 MG IVPB (14:39)
[2023-10-20] MEDS: 0.9 % SODIUM CHLORIDE 250 ml IV (14:39)
[2023-11-17 14:02] VITALS: BP 140/61; PULSE 53; RESP 18; TEMP 36; O2SAT 96
[2023-11-17] MEDS: VEDOLIZUMAB 300 MG, TUBING SECONDARY 1 EACH in 0.9 % SODIUM CHLORIDE 250 ml 250 ML 510 MG IVPB (14:41)
[2023-11-17] MEDS: 0.9 % SODIUM CHLORIDE 250 ml IV (14:41)
[2023-11-17] MEDS: SODIUM CHLORIDE 0.9 % (FLUSH) 10 ML SYRINGE IVF (14:42)
== END 2023-11-29 23:59 | disposition home or self-care (01) ==
LOC: CCIC 14:00
PROVIDERS: PCP Family Medicine; Referring Provider Family Medicine; Visit Provider Internal Medicine Gastroenterology
DX: K51.90 Ulcerative colitis, unspecified, without complications (principal)
CPT/HCPCS: 96365; 96413; J3380; J7050

== ENCOUNTER 2023-11-19 18:58 | Emergency (ER) | payer MEDICARE, SELFPAY ==
[2023-11-19] VITALS (12 sets, daily range): BP systolic 136–174; BP diastolic 65–111; PULSE 72–110; RESP 16; TEMP 36.2; O2SAT 87–97; BMI 27.0
--- NOTE | 2023-11-19 20:38 | CT_ITS ---
Patient: WOOD LOYA Facility:?[facility] RIS Patient ID:?[id number] Site Patient ID:?[id number]. Site :?[id number] Study:?CT-Abdomen/Pelvis WO-11/19/2023 9:37:23 PM Ordering Physician:AMEENA Final Report: INDICATION: Left flank pain. TECHNIQUE: CT abdomen and pelvis without contrast. COMPARISON: CT abdomen/pelvis dated 09/15/2019. FINDINGS: Lower chest: Significant elevation of the right hemidiaphragm, with right basilar atelectasis. Evaluation of solid organs is limited secondary to lack of IV contrast administration. Liver: Small amount of perihepatic fluid, of uncertain etiology. Gallbladder and bile ducts: Cholelithiasis. No significant gallbladder wall edema or pericholecystic fluid. Pancreas: Atrophic. Spleen: Unremarkable. Adrenal glands: Left adrenal gland is unremarkable. Right adrenal gland is not well seen, no large mass. Kidneys: Multiple calculi at the left ureterovesicular junction, larger measures up to 0.6 cm. There is an additional 0.4 cm calculus in the distal left ureter. These result in [id number]-[id number] left hydronephrosis and hydroureter. Retroperitoneum: No lymphadenopathy. Bowel and mesentery: Bowel is not obstructed. No significant ascites, no pneumoperitoneum. Scattered colonic diverticulosis, without evidence of acute diverticulitis. 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 Bladder: Unremarkable for degree of distention. Reproductive organs: Unremarkable. Pelvic lymph nodes: No lymphadenopathy. Vessels: Unremarkable for unenhanced study. Abdominal wall: Atherosclerotic calcifications. Bones: Extensive multilevel degenerative changes of the spine. Bones are osteopenic. IMPRESSION: 1. Multiple calculi at the left ureterovesicular junction measuring up to 0.6 cm, with an additional 0.4 cm calculus in the distal left ureter, which results in uhat-ah-wctugwsf left hydronephrosis and hydroureter. 2. Small amount of perihepatic fluid, of uncertain etiology. 3. Multiple additional incidental findings as above. Please note that all CT scans at this facility use dose modulation, iterative reconstruction, and/or weight-based dosing when appropriate to reduce radiation dose to as low as reasonably achievable. Dictated by Sushma Lewis MD @ 11/19/2023 10:27:35 PM Signed by:?Sushma Lewis MD @11/19/2023 10:27:35 PM (Electronic Signature)
--- NOTE | 2023-11-19 20:40 | ED.ABDPAIN ---
HPI - Abdominal Pain General Chief Complaint: Abdominal Pain Stated Complaint: Left back down to abdomen bmfu-zazwn-vmqakl stone? Time Seen by Provider: 11/19/23 20:30 History of Present Illness HPI narrative: Patient is a 77-year-old woman who presents with 8 hours of left flank pain. She has had nausea and vomiting no change in her bowel or bladder. She has history of kidney stones in the past. She has no dysuria or hematuria. The pain is severe and does rotate into the left groin. She has had no chest pain shortness a breath orthopnea or PND. She did take oxycodone at home with no improvement. Related Data Home Medications Medication Instructions Recorded Confirmed calcium cit 250 mg-ergocalciferol 2 tab PO DAILY 04/07/22 11/16/23 (vit D2) 2.5 mcg (100 unit) tablet (Castro-Citrate) ferrous sulfate 325 mg (65 mg 325 mg PO DAILY 04/07/22 11/16/23 iron) tablet multivitamin 1 tab PO DAILY 04/07/22 11/16/23 carboxymethylcellulose sodium 0.5 1 drp ophthalmic (eye) BID PRN 05/05/22 11/16/23 % eye drops (Refresh Tears) acetaminophen 650 mg 1,300 mg PO Q8H 06/15/22 11/16/23 tablet,extended release (8 Hour Pain Reliever) lactobacillus combination no.4 3 3,000 mmu cells PO QDAY 11/06/22 11/16/23 billion cell capsule (Probiotic) turmeric 400 mg capsule 400 mg PO BID 11/06/22 11/16/23 vedolizumab 300 mg intravenous 300 mg IV Q4W 11/16/23 11/16/23 solution Previous Rx's Medication Instructions Recorded amlodipine 5 mg tablet 5 mg PO DAILY #90 tabs 11/16/23 cyanocobalamin (vitamin B-12) 1,000 mcg PO .every other day #90 11/16/23 1,000 mcg tablet (Vitamin B-12) tabs gabapentin 100 mg capsule 100 mg PO QID #360 caps 11/16/23 levothyroxine 100 mcg tablet 100 mcg PO QDAY #90 tabs 11/16/23 potassium citrate 5 mEq (540 mg) 20 meq (4 x 5 mEq (540 mg)) PO 02/20/24 tablet,extended release DAILY #360 tabs Allergies Allergy/AdvReac Type Severity Reaction Status Date / Time lisinopril Allergy Unknown Dizziness Verified 11/19/23 19:52 pneumococcal 7-valent Allergy Unknown Verified 11/19/23 19:52 conjugate to Sulfa (Sulfonamide Allergy Unknown Rash Verified 11/19/23 19:52 Antibiotics) Review of Systems Status of ROS Reports: 10 or more systems reviewed and unremarkable except as noted in History and below PFSH PFS Medical History Osteoporosis ?M81.0 - Age-related osteoporosis without current pathological fracture (ICD-10) History of kidney stones ?Z87.442 - Personal history of urinary calculi (ICD-10) Rotator cuff tear, left ?M75.102 - Unspecified rotator cuff tear or rupture of left shoulder, not specified as traumatic (ICD-10) Winged scapula, left (~05/2022) ?M95.8 - Other specified acquired deformities of musculoskeletal system (ICD-10) Urolithiasis (01/2019) ?N20.9 - Urinary calculus, unspecified (ICD-10) Ulcerative colitis (2015) ?K51.90 - Ulcerative colitis, unspecified, without complications (ICD-10) Stage 3 chronic kidney disease (2016) ?N18.30 - Chronic kidney disease, stage 3 unspecified (ICD-10) Prediabetes (12/2016) ?R73.03 - Prediabetes (ICD-10) 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) ?L88 - Pyoderma gangrenosum (ICD-10) History of Meckel's diverticulum (1964) ?Z87.19 - Personal history of other diseases of the digestive system (ICD-10) History of colonic polyps (10/2016) ?Z86.010 - Personal history of colonic polyps (ICD-10) Health care directive on file (07/26/19) ?Z78.9 - Other specified health status (ICD-10) 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 - Ferrell's palsy (ICD-10) Surgical History Status post left knee replacement (06/17/22) ?Z96.652 - Presence of left artificial knee joint (ICD-10) History of total right knee replacement (2009) ?Z96.651 - Presence of right artificial knee joint (ICD-10) History of tonsillectomy ?Z90.89 - Acquired absence of other organs (ICD-10) History of thumb surgery (2010) ?Z98.890 - Other specified postprocedural states (ICD-10) History of repair of pyloric stenosis (1944) ?Z98.890 - Other specified postprocedural states (ICD-10) History of hysteroscopy (2015) ?Z98.890 - Other specified postprocedural states (ICD-10) History of colonoscopy (2016) ?Z98.890 - Other specified postprocedural states (ICD-10) History of colectomy (02/2018) ?Z90.49 - Acquired absence of other specified parts of digestive tract (ICD-10) History of closure of ileostomy (10/05/19) ?Z98.890 - Other specified postprocedural states (ICD-10) History of appendectomy (1965) ?Z90.49 - Acquired absence of other specified parts of digestive tract (ICD-10) Family History Father Prostate cancer Sister Type 2 diabetes mellitus Brother Colon cancer, Onset Age: 50 Other Bladder cancer Social History (Updated 11/15/23 @ 10:36 by Nany Sanders ~ [facility]) Narrative: Currently lives in with adult son , 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 What is your current living situation?: I presently have a place to live Problems where you live: no known problems In the past 12 months, utilities in danger of being shut off: no In past 12 months, lack of transportation kept you from medical appts, meetings, work, or getting things needed for daily living: no In the past 12 mos, have been you worried that your food would run out before you had money to buy more?: never true In the past 12 mos, the food you bought just didn't last and you didn't have money to buy more?: never true Smoking Status: Never smoker Do you use any of these nicotine containing products: None Second hand tobacco smoke exposure: No How often do you have a drink containing alcohol: monthly or less How often do you have six or more drinks on one occasion: Never AUDIT-C Alcohol total score: 1 Non-prescribed substance use: denies use Caffeine: Yes (1 cup coffee/day) How often does anyone, including family, friends and others, physically hurt you: never How often does anyone, including family, friends and others, insult or talk down to you: never How often does anyone, including family, friends and others, threaten you with harm: never How often does anyone, including family, friends and others, scream or curse at you: never Little interest or pleasure in doing things: several days Feeling down, depressed, or hopeless: not at all Are you using contraception or practicing any form of control: No Exam Narrative: Exam Narrative: EXAM GENERAL: Patient appears comfortable and well. EYES: No scleral icterus. LYMPH: No supraclavicular or cervical lymphadenopathy. SKIN: Visible skin seen during exam normal or with benign process only. EXT: No dependent lower extremity pedal edema. HEART: Regular rate and rhythm with no murmurs, rubs, or gallops. LUNGS: Clear to auscultation bilaterally with no crackles or wheezes. ABD: Soft, non tender, non distended. PSYCH: Good eye contact, speech is not pressured. Const: Vital Signs, click to edit/add: Vital Signs - 24 hr 11/19/23 19:46 11/19/23 21:07 11/19/23 21:08 Temperature 97.2 F L Pulse Rate 79 75 Pulse Rate [Right Pulse Oximeter] 110 H Respiratory Rate 16 Blood Pressure 143/104 H Blood Pressure [Ri ght Upper Arm] 174/83 H Pulse Oximetry 97 95 94 Oxygen Delivery Me thod Room Air Nasal Cannula Nasal Cannula Oxygen Flow Rate 1 1 11/19/23 21:15 11/19/23 21:51 11/19/23 21:52 Temperature Pulse Rate 77 80 81 Pulse Rate [Right Pulse Oximeter] Respiratory Rate Blood Pressure 149/68 H 136/111 H Blood Pressure [Ri ght Upper Arm] Pulse Oximetry 95 94 93 Oxygen Delivery Me thod Nasal Cannula Nasal Cannula Nasal Cannula Oxygen Flow Rate 1 1 1 11/19/23 22:00 11/19/23 22:02 11/19/23 22:03 Temperature Pulse Rate 77 79 76 Pulse Rate [Right Pulse Oximeter] Respiratory Rate Blood Pressure 147/68 H Blood Pressure [Ri ght Upper Arm] Pulse Oximetry 93 93 87 L Oxygen Delivery Me thod Nasal Cannula Nasal Cannula Room Air Oxygen Flow Rate 1 1 11/19/23 22:15 Temperature Pulse Rate 76 Pulse Rate [Right Pulse Oximeter] Respiratory Rate Blood Pressure Blood Pressure [Ri ght Upper Arm] Pulse Oximetry 88 Oxygen Delivery Me thod Room Air Oxygen Flow Rate Course Course ED Course: Patient seen examined. CT of the abdomen pelvis CBC CMP UA amylase pending. 1 L normal saline given 4 mg of Zofran 30 mg of Toradol given. Vital Signs Vital signs: Initial Vital Signs Temperature 97.2 F L 11/19/23 19:46 Temperature Source Temporal Artery Scan 11/19/23 19:46 Pulse Rate 110 H 11/19/23 19:46 Pulse Rhythm Regular 11/19/23 19:46 Pulse Strength 3+ Normal 11/19/23 19:46 Respiratory Rate 16 11/19/23 19:46 Blood Pressure 174/83 H 11/19/23 19:46 Blood Pressure Mean 113 H 11/19/23 19:46 Blood Pressure Position Sitting 11/19/23 19:46 Pulse Oximetry 97 11/19/23 19:46 Oxygen Delivery Method Room Air 11/19/23 19:46 Vital Signs Temperature 97.2 F L 11/19/23 19:46 Pulse Rate 110 H 11/19/23 19:46 Respiratory Rate 16 11/19/23 19:46 Blood Pressure 174/83 H 11/19/23 19:46 Pulse Oximetry 97 11/19/23 19:46 Oxygen Delivery Method Room Air 11/19/23 19:46 Temperature 97.2 F L 11/19/23 19:46 Pulse Rate 76 11/19/23 22:15 Respiratory Rate 16 11/19/23 19:46 Blood Pressure 147/68 H 11/19/23 22:02 Pulse Oximetry 88 11/19/23 22:15 Oxygen Delivery Method Room Air 11/19/23 22:15 Oxygen Flow Rate 1 11/19/23 22:02 Medications Administered Medications: Discontinued Medications Generic Name Dose Route Start Last Admin Trade Name Freq PRN Reason Stop Dose Admin Sodium Chloride 1,000 mls @ 1,000 mls/hr 11/19/23 20:40 11/19/23 21:40 0.9 % Sodium Chloride 1000 Ml IV 11/19/23 21:39 Infused .Q1H CASSIDY Infusion Ketorolac Tromethamine 30 mg 11/19/23 20:42 11/19/23 21:07 Ketorolac 30 Mg/Ml Inj IVP 11/19/23 20:43 30 mg ONCE ONE Administration Ondansetron HCl 4 mg 11/19/23 20:39 11/19/23 21:07 Ondansetron 2 Mg/Ml Inj IVP 11/19/23 20:40 4 mg ONCE ONE Administration MDM - Abdominal Pain MDM Narrative Medical decision making narrative: Patient is a 77-year-old woman who presents with flank pain. She has history of kidney stones. She also has history of abdominal fistula. CT of the abdomen pelvis shows multiple kidney stones. UA shows signs of infection. Patient did have some relative hypoxemia during her time but I do believe this to be a chronic finding. Patient has done well on amoxicillin in the past. She knows to drink plenty of fluids. She has Percocet at home that she can use until she sees her doctor this coming week. Differential Diagnosis Differential diagnosis: Likely abdominal pain, acute appendicitis, calculus of kidney, constipation, diverticulitis, gastroenteritis, pancreatitis and small bowel obstruction Lab Data Labs: Lab Results 11/19/23 11/19/23 Range/Units 20:48 20:50 WBC 14.66 H (4.50-11.00) K/uL RBC 4.82 (4.00-5.20) m/uL Hgb 14.9 (12.0-16.0) gm/dL Hct 45.6 (33.0-51.0) % MCV 95 (80-100) fL MCH 31 (26-34) pg MCHC 33 (32-36) gm/dL RDW Coeff of Kelby 13.0 (11.5-15.5) % Plt Count 185 (140-440) K/uL Neut % (Auto) 90.5 H (42.0-72.0) % Lymph % (Auto) 3.4 L (20-44) % [place] % (Auto) 5.9 (0.0-11.0) % Eos % (Auto) 0.0 (0.0-7.0) % Baso % (Auto) 0.1 (0.0-3.0) % Neut # (Auto) 13.30 H (1.7-7.0) K/uL Lymph # (Auto) 0.50 L (0.90-2.90) K/uL [place] # (Auto) 0.90 (0.00-0.90) K/UL Eos # (Auto) 0.00 (0.00-0.50) K/uL Baso # (Auto) 0.00 (0.00-0.30) K/uL Abs Immat Gran (auto) 0.00 (0.00-0.30) K/uL Imm/Tot Granulo (auto) 0.1 % Sodium 138 (135-149) mmol/L Potassium 4.4 (3.6-5.1) mmol/L Chloride 97 (96-114) mmol/L Carbon Dioxide 28 (20-32) mmol/L Anion Gap 13 (7-15) mEq/L BUN 50 H (7-30) mg/dL Creatinine 1.3 (0.5-1.5) mg/dL Estimated Creat Clear 29.03 Estimated GFR 42 ml/min Glucose 194 H (60-115) mg/dL Calcium 10.7 H (8.4-10.6) mg/dL Total Bilirubin 0.6 (0.1-1.5) mg/dL AST 29 (12-35) U/L ALT 26 (4-35) U/L Alkaline Phosphatase 66 (40-150) U/L Total Protein 8.9 H (6.0-8.3) g/dL Albumin 5.2 H (3.3-5.0) g/dL Amylase 75 (18-89) U/L Urine Color Yellow (Yellow) Urine Appearance Cloudy A (Clear) Urine pH 7.5 (5.0-8.5) Ur Specific Spiro 1.015 (1.000-1.030) Urine Protein Trace A (Negative) Urine Glucose (UA) Negative (Negative) Urine Ketones 3+ A (Negative) Urine Blood 1+ A (Negative) Urine Nitrite Negative (Negative) Urine Bilirubin Negative (Negative) Urine Urobilinogen 0.2 (0.2-1.0) Ur Leukocyte Esterase 2+ A (Negative) Urine RBC 2-5 A (0-2) Urine WBC 10-25 A (0-5) Ur Squamous Epith Cells Few (None-Few) Amorphous Sediment Few A (None) Urine Bacteria Few A (None) Discharge Plan Discharge Clinical Impression: Kidney calculi Patient Disposition: Home, Self-Care Condition: Stable Instructions: Kidney Stones (ED) Additional Instructions: Rest Fluids Amoxicillin as directed Follow-up with your doctor this coming week to discuss the urinary infection, kidney stones and mild hypoxia Activity Level: No Restrictions Discharge Diet: Regular Prescriptions: No Action vedolizumab 300 mg recon soln 300 mg IV Q4W Rx Instructions: administer week 6 of treatment cyanocobalamin (vitamin B-12) [Vitamin B-12] 1,000 mcg tablet 1,000 mcg PO .every other day Qty: 90 1RF amlodipine 5 mg tablet 5 mg PO DAILY Qty: 90 3RF gabapentin 100 mg capsule 100 mg PO QID Qty: 360 3RF Rx Instructions: 1 tablet in the morning, 1 tablet in the day, 2 tablets at bedtime levothyroxine 100 mcg tablet 100 mcg PO QDAY Qty: 90 3RF potassium citrate 5 mEq (540 mg) tablet extended release 20 meq PO DAILY Qty: 360 3RF turmeric 400 mg capsule 400 mg PO BID Probiotic 3 billion cell capsule 3,000 mmu cells PO QDAY Rx Instructions: administer with a meal carboxymethylcellulose sodium [Refresh Tears] 0.5 % drops 1 drp ophthalmic (eye) BID PRN multivitamin Tablet 1 tab PO DAILY ferrous sulfate 325 mg (65 mg iron) tablet 325 mg PO DAILY Castro-Citrate 250 mg-2.5 mcg (100 unit) tablet 2 tab PO DAILY acetaminophen [8 Hour Pain Reliever] 650 mg tablet extended release 1,300 mg PO Q8H Follow Up/Referrals: Namrata Burgess MD [Primary Care Provider] - Stand Alone Forms: [employer] Info Instructions
[2023-11-19 20:57] LABS: Basophils Percent Auto 0.1 % (0.0-3.0); Hematocrit 45.6 % (33.0-51.0); Hemoglobin* 14.9 gm/dL (12.0-16.0); Immature Granulocytes Pct Auto 0.1 %; Lymphocytes Percent Auto 3.4 % (20-44); Mean Corpuscular HGB Conc 33 gm/dL (32-36); Mean Corpuscular Hemoglobin 31 pg (26-34); Mean Corpuscular Volume 95 fL (80-100); Monocytes Percent Auto 5.9 % (0.0-11.0); Neutrophils Percent Auto 90.5 % (42.0-72.0); Platelet Count* 185 K/uL (140-440); Red Blood Count 4.82 m/uL (4.00-5.20); White Blood Count* 14.66 K/uL (4.50-11.00)
[2023-11-19 20:58] LABS: Appearance Urine Cloudy (Clear); Bilirubin Urine Negative (Negative); Blood Urine 1+ (Negative); Color Urine Yellow (Yellow); Glucose Urine Negative (Negative); Ketones Urine 3+ (Negative); Leukocyte Esterase Urine 2+ (Negative); Nitrite Urine Negative (Negative); Protein Urine Trace (Negative); Specific Gravity Urine 1.015 (1.000-1.030); Urobilinogen Urine 0.2 (0.2-1.0); pH Urine 7.5 (5.0-8.5)
[2023-11-19 21:01] LABS: Slide Review Reflex No
[2023-11-19] MEDS: 0.9 % SODIUM CHLORIDE 1000 ml 1,000 ML IV (21:07)
[2023-11-19] MEDS: KETOROLAC 30 MG/ML inj IVP (21:07)
[2023-11-19] MEDS: ONDANSETRON 2 MG/ML inj 4 MG IVP (21:07)
[2023-11-19 21:10] LABS: Amorphous Sediment Urine Few; Bacteria Urine Few; Squamous Epithelial Cell Urine Few (None-Few)
[2023-11-19 21:10] LABS: Albumin* 5.2 g/dL (3.3-5.0); Chloride* 97 mmol/L (96-114); Sodium* 138 mmol/L (135-149)
[2023-11-19 21:11] LABS: Potassium* 4.4 mmol/L (3.6-5.1)
[2023-11-19 21:13] LABS: Alanine Aminotransferase* 26 U/L (4-35); Alkaline Phosphatase* 66 U/L (40-150); Amylase* 75 U/L (18-89); Anion Gap 13 mEq/L (7-15); Aspartate Amino Transferase* 29 U/L (12-35); Bilirubin Total* 0.6 mg/dL (0.1-1.5); Blood Urea Nitrogen* 50 mg/dL (7-30); Calcium* 10.7 mg/dL (8.4-10.6); Carbon Dioxide* 28 mmol/L (20-32); Creatinine* 1.3 mg/dL (0.5-1.5); Est. Creatinine Clearance* 29.03; Estimated Glomerular Filt Rate 42 ml/min; Glucose* 194 mg/dL (60-115); Total Protein* 8.9 g/dL (6.0-8.3)
--- NOTE | 2023-11-19 22:17 | ED.NURSE ---
Pt satting 85-88% on room air with good wave form. Placed on oxygen 1 LPM via NC and up to 94%. MD Vogel updated. Per , take pt off of oxygen. Pt satting 84-89% on room air. MD Vogel updated.
== END 2023-11-19 22:55 | disposition home or self-care (01) ==
PROVIDERS: Emergency Provider Internal Medicine; PCP Family Medicine
DX: N20.0 Calculus of kidney (principal)
CPT/HCPCS: 36415; 74176; 80053; 81001; 81003; 82150; 85025; 87086; 87186; 96374; 96375; 99283; 99284; J1885; J2405; J7030

== ENCOUNTER 2023-11-24 15:52 | Outpatient (CLI) | payer MEDICARE, SELFPAY | END 2023-11-24 15:53 | disposition home or self-care (01) | LOC: NFLDREF 15:53 | PROVIDERS: PCP Family Medicine; Visit Provider Family Medicine | DX: N18.30 Chronic kidney disease, stage 3 unspecified (principal); N39.0 Urinary tract infection, site not specified | CPT/HCPCS: 80053 ==

== ENCOUNTER 2024-01-17 15:50 | Outpatient (CLI) | payer MEDICARE, SELFPAY ==
--- OUTSIDE RECORDS SUMMARY | 2024-01-19 11:30 | XMS_ITS | Clinical Summary ---
Author Name Unknown Organization [employer] [facility] [facility] Address [place], [place] [address] Care Team Providers Care Surveillance Sensor Officer Name Role Phone Namrata Burgess MD Primary [...] by mouth once daily. 0 05/27/2018 Active kviyocla-xii-sien-FA- lutein (CENTRUM SILVER WOMEN) 8 mg iron-400 mcg-300 mcg tab Take by mouth. 0 05/27/2018 Active acetaminophen (TYLENOL) 325 mg tablet Take by mouth every 4 hours if needed. Max acetaminophen dose: 4000mg in 24 hrs. 0 05/27/2018 Active traMADol (ULTRAM) 50 mg tablet Take 50 mg by mouth every 6 hours if needed for Pain. Not taking. 0 05/12/2019 Active ondansetron (ZOFRAN ODT) 4 mg disintegrating tablet Not taking. 02/09/2019 Ac tive gabapentin (NEURONTIN) 100 mg capsule 10/29/2020 Active levothyroxine (SYNTHROID) 100 mcg tablet Take 100 mcg by mouth once daily. 10/29/2020 Active potassium citrate (UROCIT-K) 5 mEq (540 mg) Extended-Release tablet Take 5 mEq by mouth. Active amLODIPine (NORVASC) 5 mg tablet Take 5 mg by mouth once daily. 11/18/2020 Active TURMERIC ORAL Take 1 Capsule by mouth. Active inulin (FIBER GUMMIES ORAL) Daily Active cyanocobalamin, vitamin B-12, 5,000 mcg TbIE Take by mouth. 0 12/19/2021 Active vedolizumab (ENTYVIO) 300 mg solr injectionIndications: Ulcerative colitis without complications, unspecified location (HC) 300 mg IV every 4 weeks for 1 year 1 Each 11 12/10/2023 Active Active Problems Problem Noted Date Diagnosed Date Ulcerative pancolitis without complication 12/17 Resolved Problems Problem Noted Date Diagnosed Date Resolved Date Kidney stone on left side 07/10/2019 Colonic fistula 09/15/2018 12/17/2020 Ulcerative colitis with fistula 09/15/2018 12/17/2020 Pyoderma gangrenosum 05/24/2018 021 Overview: Parastomal Encounters Date Type Department Care Team Description 12/10/2023 1:30 PM CDT Office Visit [facility] [address] [place] [address] Virgilio Macias MD Follow Up (feeling) 12/10/2023 Travel from Last 3 Months Social History Tobacco Use Types Packs/Day Years [...] Sign Reading Time Taken Comments Blood Pressure 136/66 12/10/2023 1:31 PM CDT Pulse 60 12/10/2023 1:31 PM CDT Temperature 36.1 ??C (97 ??F) 05/24/2018 11:19 AM CDT Respiratory Rate 18 05/24/2018 11:19 AM CDT Oxygen Saturation 97% 12/10/2023 1:31 PM CDT Inhaled Oxygen Concentration - - Weight 70 kg (154 lb 6.4 oz) 12/10/2023 1:31 PM CDT Height - - Body Mass Index - - Plan of Treatment Health Maintenance Due Date Last Done Comments Tdap 1954 Depression screening for age 12+ 1955 BMI (ht and wt on same day) for age 18+ 1961 Zoster (shingles) series for age 50+ (1 of 2) 1962 Tetanus booster 1963 DEXA/DXA scan for age 65+ 2008 Medicare Wellness for age 65+ 2008 Pneumococcal series for age 65+ (1 of 1 - PCV) 2008 COVID-19 vaccine series (4 - 2022-24 season) 2023 05/23/2021, 11/30/2020, 11/09/2020 Influenza for age 65+ 05/28/2024 Care Teams Surveillance Sensor Officer Relationship Specialty Start Date End Date Namrata Burgess MD [address] [place] [address] PCP - General Family Practice 05/27/18
== END 2024-01-17 15:51 | disposition home or self-care (01) ==
LOC: NFLDREF 01-19 11:23
PROVIDERS: PCP Family Medicine; Referring Provider Family Medicine; Visit Provider Internal Medicine Nephrology
DX: N20.9 Urinary calculus, unspecified (principal)
CPT/HCPCS: 80069; 82043; 82306; 82310; 82570; 83945; 83970; 84550

== ENCOUNTER 2024-01-19 10:30 | Outpatient (CLI) | payer MEDICARE, SELFPAY ==
--- OUTSIDE RECORDS SUMMARY | 2024-02-11 14:20 | XMS_ITS | Referral Summary ---
Author Name Unknown Organization [facility] Address [address] [place] [address] Care Team Providers Care Link Cutter Name Role Phone Unavailable Primary Care Provider Unavailabl e Source Comments Patient records contain information from all sites at [facility]. For routine questions regarding patient records, call [phone] during business hours, M-F 8:00 AM - 5:00 PM Central Time. Record requests for emergency care only can be directed to [phone] at any time.[facility] Encounters Date Type Department Care Team Description 01/17/2024 3:00 PM CDT External Outreach Division of Nephrology and Hypertension in [place], [place] [address] [place] [address] Tejas Randhawa Jr., D.O. Fatigue (Primary Dx); [...] mcg by mouth daily. 3 05/02/2019 Active gsypzife-fwk-djhe-FA -lutein 8 mg iron-400 mcg-300 mcg tablet [...] often do you attend chur ch or taoism services? Never 01/17/2022 Do you belong to any clubs o r organizations such as mosque groups, unions, fraternal or athletic groups, or [...] and heating? Not hard at all 06/17/2023 [facility] - Occupational Stress Questionnaire Answer Date [...] living situation today? I have a [facility] place to live 06/17/2023 Education Answer Date [...] on file Medical Devices Implanted Type Area Floor Layer Tile Device Identifier Shelf Expiration Date Model / Serial / Lot Knee Implant Knee Implant Right: Knee Procedures Procedure Name Priority Date/Time Associated Diagnosis Comments THYROID FUNCTION CASCADE, S Routine 06/07/2019 10:31 AM CDT Inflammatory Bowel Disease from Last 3 Months or Most Recently Relevant to Health Maintenance Results * Thyroid Function [place] (06/07/2019 10:31 AM CDT) TSH, Sensitive 2.4 0.3 - 4.2 mIU/L 06/07/2019 11:38 AM CDT Blood (Blood, Venous) 06/07/2019 10:31 AM CDT 06/07/2019 10:50 AM CDT Corona Riley M.D., M.S. LAB BLOOD ADD -ON [place] [address] from Last 3 Months or Most Recently Relevant to Health Maintenance Advance Directives For more information, please contact: [phone] * Full Code (Latest Code Status on File) Date Activated Date Inactivated Comments 10/05/2019 7:31 PM 10/16/2019 3:21 PM Question Answer Comments Full Code: Discussed * Full Code Date Activated Date Inactivated Comments 10/05/2019 11:16 AM 10/05/2019 7:31 PM Question Answer Comments Full Code: Discussed
--- OUTSIDE RECORDS SUMMARY | 2024-02-11 14:20 | XMS_ITS ---
Author Name Unknown Organization [facility] Address [address] [place] [address] Care Team Providers Care Clinical Education Coordinator Name Role Phone Unavailable Unavailable Unavailable Surgery Details Not on file Complications Check Surgery Details section. Procedure Estimated Blood Loss Check Surgery Details section. Procedure Findings Check Surgery Details section. Procedure Specimens Taken Check Surgery Details section.
--- OUTSIDE RECORDS SUMMARY | 2024-02-11 14:20 | XMS_ITS | Encounter Summary ---
Author Name Unknown Organization [facility] Address [address] [place] [address] Care Team Providers Care Local Company Hazmat Driver Name Role Phone Unavailable Primary Care Provider Unavailabl e Reason for Visit * Appointment Request (Routine) - Closed Specialty Diagnoses / Procedures Referred By Sari barrera Referred To Contact Nephrology and Hypertension Namrata Burgess M.D. [address] [place] [address] Referral ID Status Reason Start Date Expiration Date Visits Re quested Visits Authorized [id number] Closed 11/25/2023 11/24/2024 1 1 Encounter Details Date Type Department Care Team (Latest Contact Info) Description 01/17/2024 3:00 PM CDT External Outreach Division of Nephrology and Hypertension in [place], [place] [address] [place] [address] Tejas Randhawa Jr., D.O. [address] [place] [address] Fatigue (Primary Dx); Chronic Kidney Disease (CKD), [...] often do you attend chur ch or moravian services? Never 01/17/2022 Do you belong to any clubs o r organizations such as voodoo groups, unions, fraternal or athletic groups, or [...] and heating? Not hard at all 06/17/2023 [facility] [place] of Occupat ional Health - Occupational Stress [...] your living situation today? I have a [facility] place to live 06/17/2023 Education [...] provider on file. SUBJECTIVE REASON FOR VISIT [place] [facility] Follow-up regards metabolically [...] Intestine 09/15/2018 Hypertension NOS Hypothyroidism Ileostomy Status ([facility]) 06/07/2019 Pyoderma Gangrenosum ([facility]) 05/24/2018 Parastomal Renal Disease Current [...] by mouth daily., Disp: , Rfl: 3 dgrtlhlj-gec-hrcx-FA-lutein 8 mg iron-400 mcg-300 mcg tablet, Take [...]
--- OUTSIDE RECORDS SUMMARY | 2024-02-11 14:20 | XMS_ITS | Clinical Summary ---
Author Name Unknown Organization [facility] Address [address] [place] [address] Care Team Providers Care Shift Nurse Manager Name Role Phone Unavailable Primary Care Provider Unavailabl e Source Comments Patient records contain information from all sites at [facility]. For routine questions regarding patient records, call [phone] during business hours, M-F 8:00 AM - 5:00 PM Central Time. Record requests for emergency care only can be directed to [phone] at any time.[facility] Allergies Active Allergy Reactions Criticality Noted Date Comments Lisinopril Other (see comments) 05/24/2018 Pneumococcal Vaccine Other (see comments) 06/07 unknown Pollen Extracts Other (see comments) 06/07/2019 Sulfa (Sulfonamide Antibiotics) Other (see comments) 05/24/2018 Medications Medication Sig Dispensed Refills Start Date End Date Status levothyroxine (SYNTHROID, LEVOTHROID) 88 mcg tablet Take 88 mcg by mouth daily. 3 05/02/2019 Active nicwiycu-nhv-btnn-FA -lutein 8 mg iron-400 mcg-300 mcg tablet [...] Outreach Division of Nephrology and Hypertension in [place], [place] [address] [place] [address] Tejas Randhawa Jr., D.O. Fatigue (Primary Dx); [...] any clubs o r organizations such as shinto groups, unions, fraternal or athletic groups, or [...] and heating? Not hard at all 06/17/2023 [facility] - Occupational Stress Questionnaire Answer Date [...] this topic Medical Devices Implanted Type Area Sheet Metal Journeyman Device Identifier Shelf Expiration Date Model / Serial / Lot Knee Implant Knee Implant Right: Knee Procedures Procedure Name Priority Date/Time Associated Diagnosis Comments THYROID FUNCTION CASCADE, S Routine 06/07/2019 10:31 AM CDT Inflammatory Bowel Disease from Last 3 Months or Most Recently Relevant to Health Maintenance Results * Thyroid Function [place] (06/07/2019 10:31 AM CDT) TSH, Sensitive 2.4 0.3 - 4.2 mIU/L 06/07/2019 11:38 AM CDT Blood (Blood, Venous) 06/07/2019 10:31 AM CDT 06/07/2019 10:50 AM CDT Corona Riley M.D., M.S. LAB BLOOD ADD -ON [facility] [address] from Last 3 Months or Most Recently Relevant to Health Maintenance Advance Directives For more information, please contact: [phone] * Full Code (Latest Code Status on File) Date Activated Date Inactivated Comments 10/05/2019 7:31 PM 10/16/2019 3:21 PM Question Answer Comments Full Code: Discussed * Full Code Date Activated Date Inactivated Comments 10/05/2019 11:16 AM 10/05/2019 7:31 PM Question Answer Comments Full Code: Discussed
--- OUTSIDE RECORDS SUMMARY | 2024-02-11 14:20 | XMS_ITS | Clinical Summary ---
Author Name Unknown Organization [facility] Address [place], [place] [address] Care Team Providers Care Administrative Resident Name Role Phone Namrata Burgess MD Primary [...] by mouth once daily. 0 05/27/2018 Active ygbyeiqn-hyc-bbzl-FA- lutein (CENTRUM SILVER WOMEN) 8 mg iron-400 [...] Description 12/10/2023 1:30 PM CDT Office Visit [facility] [address] [place] [address] Virgilio Macias MD Follow Up (feeling) 12/10/2023 [...] Influenza for age 65+ 05/28/2024 Care Teams Administrative Resident Relationship Specialty Start Date End Date Namrata Burgess MD [address] [place] [address] PCP - General Family Practice 05/27/18
== END 2024-01-19 10:31 | disposition home or self-care (01) ==
LOC: NFLDREF 02-11 14:18
PROVIDERS: PCP Family Medicine; Referring Provider Family Medicine; Visit Provider Internal Medicine Nephrology
DX: N20.9 Urinary calculus, unspecified (principal)
CPT/HCPCS: 82340; 82436; 82507; 83735; 83945; 83986; 84105; 84133; 84300; 84392; 84560

== ENCOUNTER 2024-02-08 13:37 | Outpatient (CLI) | payer MEDICARE, SELFPAY ==
--- OUTSIDE RECORDS SUMMARY | 2024-02-08 13:40 | XMS_ITS | Referral Summary ---
Author Name Unknown Organization [facility] Address [address] [place] [address] Care Team Providers Care Inverter And Clipper Name Role Phone Unavailable Primary Care Provider Unavailabl e Source Comments Patient records contain information from all sites at [facility]. For routine questions regarding patient records, call [phone] during business hours, M-F 8:00 AM - 5:00 PM Central Time. Record requests for emergency care only can be directed to [phone] at any time.[facility] Encounters Date Type Department Care Team Description 01/17/2024 3:00 PM CDT External Outreach Division of Nephrology and Hypertension in [place], [place] [address] [place] [address] Tejas Randhawa Jr., D.O. Fatigue (Primary Dx); Chronic Kidney Disease (CKD), Stage 3a Glomerular Filtration Rate (GFR) 45 To 59 (HCC); Colitis Ulcerative (HCC); Urolithiasis from Last 3 Months Allergies Active Allergy Reactions Criticality Noted Date Comments Lisinopril Other (see comments) 05/24/2018 Pneumococcal Vaccine Other (see comments) 06/07 unknown Pollen Extracts Other (see comments) 06/07/2019 Sulfa (Sulfonamide Antibiotics) Other (see comments) 05/24/2018 Medications Medication Sig Dispensed Refills Start Date End Date Status levothyroxine (SYNTHROID, LEVOTHROID) 88 mcg tablet Take 88 mcg by mouth daily. 3 05/02/2019 Active dpvsvcpu-pzc-gcgk-FA -lutein 8 mg iron-400 mcg-300 mcg tablet Take by mouth. 05/27/2018 Active omeprazole 20 mg tablet,delayed release (DR/EC) Take 20 mg by mouth. 05/27/2018 Active artificial tears with lanolin (REFRESH P.M.) ophthalmic ointment 0.5 inches 3 (three) times a day as needed for dry eyes. Active vedolizumab (ENTYVIO) 60 mg/mL injection 300 mg IV week 0, 2, 6 for loading, followed by every 8 weeks for maintenance therapy 07/13/2019 Active TURMERIC ORAL Take 1 capsule by mouth daily. Active potassium citrate (UROCIT-K) 5 mEq (540 mg) ER tablet Take 5 mEq by mouth 2 (two) times a day with meals. Active acetaminophen (TYLENOL) 500 mg tablet Take 2 tablets (1,000 mg total) by mouth every 6 (six) hours as needed for pain. 10/16/2019 Active gabapentin (NEURONTIN) 100 mg capsule 10/29/2020 Active amLODIPine (NORVASC) 5 mg tablet Take 5 mg by mouth daily. 09/04/2020 Active polyethylene glycol-electrolytes (GoLYTELY) 236-22.74-6.74 -5.86 gram solutionIndications: Colitis Ulcerative (HCC) Drink 1st portion of prep at 6 PM the evening before. 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 Never 01/17/2022 Do you [...] and heating? Not hard at all 06/17/2023 [facility] - Occupational Stress Questionnaire Answer Date Recorded [...] your living situation today? I have a [facility] place to live 06/17/2023 Education Answer Date [...] Sign Reading Time Taken Comments Blood Pressure 130/78 01/17/2024 3:05 PM CDT Pulse 68 01/17/2024 3:05 PM CDT Temperature 36.4 ??C (97.5 ??F) 06/09/2023 12:55 PM C DT Respiratory Rate 14 06/09/2023 12:56 PM CDT Oxygen Saturation 96% 06/09/2023 12:56 PM CDT Inhaled Oxygen Concentration - - Weight 69.4 kg (153 lb) 01/17/2024 3:05 PM CDT Height 160 cm (5' 2.99) 01/17/2024 3:05 PM CDT Body Mass Index 27.11 01/17/2024 3:05 PM CDT Plan of Treatment Not on file Medical Devices Implanted Type Area Bioinformatics Associate Device Identifier Shelf Expiration Date Model / Serial / Lot Knee Implant Knee Implant Right: Knee Procedures Procedure Name Priority Date/Time Associated Diagnosis Comments THYROID FUNCTION CASCADE, S Routine 06/07/2019 10:31 AM CDT Inflammatory Bowel Disease from Last 3 Months or Most Recently Relevant to Health Maintenance Results * Thyroid Function [place] (06/07/2019 10:31 AM CDT) TSH, Sensitive 2.4 0.3 - 4.2 mIU/L 06/07/2019 11:38 AM CDT Blood (Blood, Venous) 06/07/2019 10:31 AM CDT 06/07/2019 10:50 AM CDT Corona Riley M.D., M.S. LAB BLOOD ADD -ON [place] [id number] from Last 3 Months or Most Recently Relevant to Health Maintenance Advance Directives For more information, please contact: [phone] * Full Code (Latest Code Status on File) Date Activated Date Inactivated Comments 10/05/2019 7:31 PM 10/16/2019 3:21 PM Question Answer Comments Full Code: Discussed * Full Code Date Activated Date Inactivated Comments 10/05/2019 11:16 AM 10/05/2019 7:31 PM Question Answer Comments Full Code: Discussed
--- OUTSIDE RECORDS SUMMARY | 2024-02-08 13:40 | XMS_ITS | Encounter Summary ---
Author Name Unknown Organization [facility] Address [address] [place] [address] Care Team Providers Care Bingo Caller Name Role Phone Unavailable Primary Care Provider Unavailabl e Reason for Visit * Appointment Request (Routine) - Closed Specialty Diagnoses / Procedures Referred By Sari barrera Referred To Contact Nephrology and Hypertension Namrata Burgess M.D. [address] [place] [address] Referral ID Status Reason Start Date Expiration Date Visits Re quested Visits Authorized [id number] Closed 11/25/2023 11/24/2024 1 1 Encounter Details Date Type Department Care Team (Latest Contact Info) Description 01/17/2024 3:00 PM CDT External Outreach Division of Nephrology and Hypertension in [place], [place] [address] [place] [address] Tejas Randhawa Jr., D.O. [address] [place] [address] Fatigue (Primary Dx); Chronic Kidney Disease (CKD), Stage 3a Glomerular Filtration Rate (GFR) 45 To 59 (HCC); Colitis Ulcerative (HCC); Urolithiasis Social History Tobacco Use Types Packs/Day Years [...] often do you attend chur ch or sikhism services? Never 01/17/2022 Do you belong to any clubs o r organizations such as rastafarian groups, unions, fraternal or athletic groups, or [...] and heating? Not hard at all 06/17/2023 [facility]at [facility] - Occupational Stress [...] your living situation today? [facility] 06/17/2023 Education Answer [...] Pulse 68 01/17/2024 3:05 PM CDT Temperature - - Respiratory Rate - - Oxygen Saturation - - Inhaled Oxygen Concentration - - Weight 69.4 kg (153 lb) 01/17/2024 3:05 PM CDT Height 160 cm (5' 2.99) 01/17/2024 3:05 PM CDT Body Mass Index 27.11 01/17/2024 3:05 PM CDT documented in this encounter Progress Notes * Tejas Randhawa Jr., D.Kait. - 01/17/2024 3:00 PM CDT Referring Provider: No primary care provider on file. SUBJECTIVE REASON FOR VISIT [facility] Follow-up regards metabolically active urolithiasis, prior history of CKD stage IIIA HISTORY OF PRESENT ILLNESS Ms. Paris is a 78 y.o. female who presents with a prior history of serum creatinine in the 1.1-1.4 mg/dL range, on the background of heavy NSAID use, with CKD stage IIIA, and a prior history of urolithiasis with her last episode in January of 2021. I am asked to visit with her as she had another symptomatic episode of urolithiasis in October of 2023. On the 19 of November through the day she began to experience severe left-sided flank pain. She did not have gross hematuria, she took an oxycodone that she would leftover from previous surgery, but abruptly threw up. Her family brought her to the emergency room where she was found to have left-sided urolithiasis with obstructive uropathy. Appreciate that her CT scan done at 10:00 p.m. showed multiple calculi at the left ureterovesicular junction, measuring in a cluster of 0.6 cm, with a0.4 cm calculus in the lower distal left ureter, with mild to moderate left-sided hydronephrosis. She was given some tamsulosin, some intravenous Toradol, and fluids, and returned home with anti nausea agents as well. She believes that on Wednesday of the following week, 3 days later, that she feltsomething pass. She has been free of discomfort since that time. No repeat scans have been done. Appreciate at that time her chemistries were normal, her serum creatinine was 1.0 mg/dL. There was some mild pyuria and hematuria. I have seen her in the past when we followed on the background of her inflammatory bowel disease, for which she underwent a partial small-bowel resection. This was reversed ultimately, and she has been treated well with antibody therapy. She has not had flares from the inflammatory bowel syndrome re cently and she has not had diarrhea. I note that at the time her serum creatinine had been elevatedat 1.3, it has subsequently returned back to normal as mentioned above. She is avoided NSAIDs and Flores 2 inhibitors, she stopped her diuretic, as she was becoming somewhat hypotensive. 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 She was also instructed on sodium avoidance, and urine dilution efforts to target at least 2.5 L of urine output per day. She readily admits that these habits have become difficult tosustain, and that she has continued on her Urocit-K but has not been on her diuretic nor has she been following her fluid regimen. As above, she has not had diarrhea recently or any symptoms of malabsorption. She does use a vitamin-D and calcium supplement. From a constitutional perspective she is doing well, and it has been 4 years since we visited each other. 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 Hypertension NOS Hypothyroidism Ileostomy Status ([facility] 06/07/2019 Pyoderma Gangrenosum ([facility]) 05/24/2018 Parastomal Renal Disease Current Outpatient Medications: acetaminophen (TYLENOL) 500 mg tablet, Take 2 tablets (1,000 mg total) by mouth every 6 (six) hoursas needed for pain., Disp: , Rfl: amLODIPine (NORVASC) 5 mg tablet, Take 5 mg by mouth daily., Disp: , Rfl: artificial tears with lanolin (REFRESH P.M.) ophthalmic ointment, 0.5 inches 3 (three) times a day as needed for dry eyes., Disp: , Rfl: gabapentin (NEURONTIN) 100 mg capsule, , Disp: , Rfl: levothyroxine (SYNTHROID, LEVOTHROID) 88 mcg tablet, Take 88 mcg by mouth daily., Disp: , Rfl: 3 sqvgefgk-soa-wwwz-FA-lutein 8 mg iron-400 mcg-300 mcg tablet, Take by mouth., Disp: , Rfl: omeprazole 20 mg tablet,delayed release (DR/EC), Take 20 mg by mouth., Disp: , Rfl: polyethylene glycol-electrolytes (GoLYTELY) 236-22.74-6.74 -5.86 gram solution, Drink 1st portion of prep at 6 PM the evening before. 2nd portion must be started 3 hours before and finished 2 hours prior to report time, Disp: 4000 mL, Rfl: 0 potassium citrate (UROCIT-K) 5 mEq (540 mg) ER tablet, Take 5 mEq by mouth 2 (two) times a day withmeals., Disp: , Rfl: TURMERIC ORAL, Take 1 capsule by mouth daily., Disp: , Rfl: vedolizumab (ENTYVIO) 60 mg/mL injection, 300 mg IV week 0, 2, 6 for loading, followed by every 8 weeks for maintenance therapy, Disp: , Rfl: REVIEW OF SYSTEMS All other systems reviewed and are negative. OBJECTIVE BP 130/78 Pulse 68 Ht 160 cm Wt 69.4 kg BMI 27.11 kg/m?? PHYSICAL EXAMINATION General: Awake alert oriented HEENT: OBED, EOMI, Mucous membranes moist, no oral lesions Neck: No Masses, No Bruits Lungs: Clear to ascultation Heart: Regular Rate and Rhythm, No ectopy Murmurs or rubs Abdomen: Soft, Non-tender Extremities: No cyanosis, No clubbing: No edema Neuro: Cranial Nerves intact, Gait is normal, strength grossly normal Skin: no suspicious lesions identified Psychiatric: Normal affect DIAGNOSTICS Labs from October demonstrate normal serum calcium, serum creatinine 1.0 mg/dL CT scan showing left-sided hydronephrosis, with the findings as described above. ASSESSMENT / PLAN #1 Chronic Kidney Disease (CKD), Stage 3a Glomerular Filtration Rate (GFR) 45 To 59 (HCC) She is decreased renal functional reserve but currently her serum creatinine level is within normalrange. Going forward: 1. Medical therapy to prevent urolithiasis as outlined below 2. Avoid Flores-2 inhibitors and NSAIDs 3. Goal blood pressure less than 130s over 80s 4. Stay very well hydrated as mentioned below. We will repeat chemistries today, and I will see her back within 1-2 months. #2 Colitis Ulcerative (HCC) This appears to be in remission and well managed. #3 Fatigue This is stable for her, and a sleep study has been arranged. #4 Urolithiasis This appears to be medically and metabolically active, perhaps surgically active as well. Going forward: 1. Re devoted herself to urine dilution efforts to make at least 2.5 L of urine per day 2. Low-sodium diet less than 2000 mg sodium per day 3. We will do 24 hour urine supersaturation studies 4. We will repeat chemistries including expanded evaluation with PTH, and uric acid as well as her serum chemistries. 5. We will check a standard urinalysis to ensure the pyuria and hematuria have resolved 6. We will check CT scan to ensure that the stones have passed 7. I will have her back so we can discuss her risks and make further manipulations with respect to her medical regimen. We need to ensure that we are not over supplementing vitamin-D and calcium, determine whether her hypercalciuria is controlled, measure her urinary citrate levels, and get an accurate reflection of urine dilution efforts and sodium restriction. She absolutely understands all this in his willing to proceed. Of note she will be busy coming up as she is going to pursue sleep studies and a cataract surgery. Total time: 40 minutes Counseling Time: 30 minutes Tejas Randhawa Jr., D.O. documented in this encounter Plan of Treatment Not on file documented as of this encounter Visit Diagnoses Diagnosis Fatigue- Primary Chronic Kidney Disease (CKD), Stage 3a Glomerular Filtration Rate (GFR) 45 To 59 (HCC) Colitis Ulcerative (HCC) Urolithiasis documented in this encounter
--- OUTSIDE RECORDS SUMMARY | 2024-02-08 13:40 | XMS_ITS ---
Author Name Unknown Organization [facility] Address [address] [place] [address] Care Team Providers Care Parking Inspector Name Role Phone Unavailable Unavailable Unavailable Surgery Details Not on file Complications Check Surgery Details section. Procedure Estimated Blood Loss Check Surgery Details section. Procedure Findings Check Surgery Details section. Procedure Specimens Taken Check Surgery Details section.
--- OUTSIDE RECORDS SUMMARY | 2024-02-08 13:40 | XMS_ITS | Clinical Summary ---
Author Name Unknown Organization [facility] Address [place], [place] [address] Care Team Providers Care Legal Secretary Receptionist Name Role Phone Namrata Burgess MD Primary [...] by mouth once daily. 0 05/27/2018 Active vhvzravx-ijx-llbe-FA- lutein (CENTRUM SILVER WOMEN) 8 mg iron-400 [...] Description 12/10/2023 1:30 PM CDT Office Visit [facility] [address] [place] [address] Virgilio Macias MD Follow Up (feeling) 12/10/2023 [...] Influenza for age 65+ 05/28/2024 Care Teams Legal Secretary Receptionist Relationship Specialty Start Date End Date Namrata Burgess MD [address] [place] [address] PCP - General Family Practice 05/27/18
--- OUTSIDE RECORDS SUMMARY | 2024-02-08 13:40 | XMS_ITS | Clinical Summary ---
Author Name Unknown Organization [facility] Address [address] [place] [address] Care Team Providers Care Statistical Assistant Name Role Phone Unavailable Primary Care Provider Unavailabl e Source Comments Patient records contain information from all sites at [facility]. For routine questions regarding patient records, call [phone] during business hours, M-F 8:00 AM - 5:00 PM Central Time. Record requests for emergency care only can be directed to [phone] at any time.[facility] Allergies Active Allergy Reactions Criticality Noted Date Comments Lisinopril Other (see comments) 05/24/2018 Pneumococcal Vaccine Other (see comments) 06/07 unknown Pollen Extracts Other (see comments) 06/07/2019 Sulfa (Sulfonamide Antibiotics) Other (see comments) 05/24/2018 Medications Medication Sig Dispensed Refills Start Date End Date Status levothyroxine (SYNTHROID, LEVOTHROID) 88 mcg tablet Take 88 mcg by mouth daily. 3 05/02/2019 Active vjivfuts-voy-hqet-FA -lutein 8 mg iron-400 mcg-300 mcg tablet [...] Date Resolved Date Ileostomy Status 06/07/2019 01/17/2024 Encounters Date Type Department Care Team Description 01/17/2024 3:00 PM CDT External Outreach Division of Nephrology and Hypertension in [place], [place] [address] [place] [address] Tejas Randhawa Jr., D.O. Fatigue (Primary Dx); Chronic Kidney Disease (CKD), Stage 3a Glomerular Filtration Rate (GFR) 45 To 59 (HCC); Colitis Ulcerative (HCC); Urolithiasis from Last 3 Months Immunizations Name Administration Dates Next Due SARS-COV-2 [...] often do you attend chur ch or adventism services? Never 01/17/2022 Do you belong to any clubs o r organizations such as roman catholic groups, unions, fraternal or athletic groups, or [...] and heating? Not hard at all 06/17/2023 [facility] - Occupational Stress Questionnaire Answer Date Recorded [...] living situation today? I have a [facility] place to live 06/17/2023 Education Answer [...] 01/17/2024 3:05 PM CDT Plan of Treatment Health Maintenance Due Date Last Done Comments Thyroid Stimulating Hormone (TSH) test for thyroid function 06/07/2020 06/07/2019 DTaP,Tdap,and Td Vaccines (2 - Td or Tdap) 07/19/2023 07/19/2013 COVID-19 Vaccine ( - 2022- season) 2023 07/14/2023, 02/27/2022, 05/23/2021, Additional history exists Depression Screening (Annual PHQ-2) 09/27/2023 Fall Risk Screen (Annual) 09/27/2023 Office Visit for Blood Pressure Check / Re-check 01/16/2025 01/17/2024 Pneumococcal vaccine (65+ years) Completed 11/01/2015, 06/27/2009 Zoster Vaccines Completed 07/17/2021, 04/23/2021 Influenza Vaccine Completed 07/14/2023, , 10/22/2021, Additional history exists HPV Vaccines Aged Out No longer eligi ble based on patient's age to complete this topic Medical Devices Implanted Type Area Letterer Device Identifier Shelf Expiration Date Model / Serial / Lot Knee Implant Knee Implant Right: Knee Procedures Procedure Name Priority Date/Time Associated Diagnosis Comments THYROID FUNCTION CASCADE, S Routine 06/07/2019 10:31 AM CDT Inflammatory Bowel Disease from Last 3 Months or Most Recently Relevant to Health Maintenance Results * Thyroid Function [place] (06/07/2019 10:31 AM CDT) TSH, Sensitive 2.4 0.3 - 4.2 mIU/L 06/07/2019 11:38 AM CDT Blood (Blood, Venous) 06/07/2019 10:31 AM CDT 06/07/2019 10:50 AM CDT Corona Riley M.D., M.S. LAB BLOOD ADD -ON [facility] [address] from Last 3 Months or Most Recently Relevant to Health Maintenance Advance Directives For more information, please contact: [phone] * Full Code (Latest Code Status on File) Date Activated Date Inactivated Comments 10/05/2019 7:31 PM 10/16/2019 3:21 PM Question Answer Comments Full Code: Discussed * Full Code Date Activated Date Inactivated Comments 10/05/2019 11:16 AM 10/05/2019 7:31 PM Question Answer Comments Full Code: Discussed
--- NOTE | 2024-02-08 14:00 | CT_ITS ---
Patient: WOOD LOYA Facility:?[facility] RIS Patient ID:?[id number] Site Patient ID:?[id number]. Site :?[id number] Study:?CT-Abdomen/Pelvis WO-02/08/2024 2:10:30 PM Ordering Physician:CECY Final Report: INDICATION: URINARY CALCULUS. (Sic) COMPARISON: None available. TECHNIQUE: CT of the abdomen and pelvis without intravenous contrast. Please note that all CT scans at this facility use dose modulation, iterative reconstruction, and/or weight-based dosing when appropriate to reduce radiation dose to as low as reasonably achievable. FINDINGS: The study is performed without intravenous contrast. This limits the sensitivity of the exam for the detection bowel pathology, focal lesions of the abdominopelvic viscera and vascular pathology including significant vascular stenosis, occlusion and dissection. ABDOMEN Liver: Normal hepatic attenuation. No suspicious focal hepatic lesion. No intrahepatic biliary ductal dilatation. Gallbladder: Cholelithiasis. Normal common duct caliber. No pericholecystic inflammatory changes. Pancreas: Normal pancreatic attenuation. No focal lesion. Normal duct caliber. No peripancreatic inflammatory changes. Spleen: Normal splenic attenuation. No suspicious focal lesion. Adrenal Glands: Symmetrical adrenal glands. No focal lesion of significance. Kidneys: Normal bilateral renal attenuation. No suspicious focal lesion. No obstructing nephrolith or dilatation of the upper urinary tracts. The previously demonstrated stones in the distal left ureter are no longer apparent. Gastrointestinal tract: Normal caliber, attenuation and wall thickness of the gastrointestinal tract. Colonic diverticulosis without associated inflammatory changes. 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 Normal mesentery. Unidentified appendix. The patient is status post ileostomy reversal. Vascular: Mild to moderate aortoiliac atherosclerotic calcification. Normal outer wall to outer wall abdominal aortic caliber. Patency and luminal caliber of the abdominopelvic arterial and venous vasculature cannot be assessed on this noncontrast study. Additional findings: Small volume low-density perihepatic ascites as on the prior exam, of undetermined cause/clinical significance. No significant ascites, free fluid or pneumoperitoneum. PELVIS No bladder lesion is identified. No significant incidental findings related to the uterus and uterine adnexae. No abnormal free fluid. No incidental adenopathy. SKELETON AND BODY WALL No acute or suspicious incidental findings. Disc degeneration present to varying degrees throughout the imaged thoracolumbar spine. Lumbar levoscoliosis. 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 Associated compressive atelectasis of the right lung base. Severe multivessel atherosclerotic coronary artery calcifications. IMPRESSION: 1. Interval resolution of previously demonstrated distal left ureteral stones. No evidence of persistent urolithiasis or obstructive uropathy. 2. Incidental findings described above. The study is performed without intravenous contrast. This limits the sensitivity of the exam for the detection bowel pathology, focal lesions of the abdominopelvic viscera and vascular pathology including significant vascular stenosis, occlusion and dissection. Please note that all CT scans at this facility use dose modulation, iterative reconstruction, and/or weight-based dosing when appropriate to reduce radiation dose to as low as reasonably achievable. Dictated by Héctor Talavera MD @ 02/10/2024 7:05:51 AM Signed by:?Héctor Talavera MD @02/10/2024 7:05:51 AM (Electronic Signature)
== END 2024-02-08 13:38 | disposition home or self-care (01) ==
LOC: CT 13:38
PROVIDERS: PCP Family Medicine; Visit Provider Internal Medicine Nephrology
DX: N20.9 Urinary calculus, unspecified (principal)
CPT/HCPCS: 74176

== ENCOUNTER 2024-02-16 19:23 | Outpatient (CLI) | payer MEDICARE, SELFPAY ==
--- OUTSIDE RECORDS SUMMARY | 2024-02-16 19:27 | XMS_ITS | Encounter Summary ---
Author Organization [facility] Address [address] [place] [address] Care Team Providers Care Crinkling Machine Operator Name Role Phone Unavailable Primary Care Provider Unavailabl e Reason for Visit * Appointment Request (Routine) - Closed Specialty Diagnoses / Procedures Referred By Sari barrera Referred To Contact Nephrology and Hypertension Namrata Burgess M.D. [address] [place] [address] Referral ID Status Reason Start Date Expiration Date Visits Re quested Visits Authorized [id number] Closed 11/25/2023 11/24/2024 1 1 Encounter Details Date Type Department Care Team (Latest Contact Info) Description 01/17/2024 3:00 PM CDT External Outreach Division of Nephrology and Hypertension in [place], [place] [address] [place] [address] Tejas Randhawa Jr., D.O. [address] [place] [address] Fatigue (Primary Dx); Chronic Kidney Disease (CKD), [...] often do you attend chur ch or jehovah's witness services? Never 01/17/2022 Do you belong to any clubs o r organizations such as mormon groups, unions, fraternal or athletic groups, or [...] hard at all 06/17/2023 [facility] of Occupat ional Health - Occupational Stress [...] your living situation today? I have a [facility] place to live 06/17/2023 Education Answer [...] provider on file. SUBJECTIVE REASON FOR VISIT [place] out reach CKD Clinic Follow-up regards metabolically [...] Intestine 09/15/2018 Hypertension NOS Hypothyroidism Ileostomy Status ([facility]) 06/07/2019 Pyoderma Gangrenosum ([facility]) 05/24/2018 Parastomal Renal Disease Current Outpatient Medications: [...] by mouth daily., Disp: , Rfl: 3 jcybbaxt-sar-fgvw-FA-lutein 8 mg iron-400 mcg-300 mcg tablet, Take [...]
--- OUTSIDE RECORDS SUMMARY | 2024-02-16 19:27 | XMS_ITS | Referral Summary ---
Author Organization [facility] Address [address] [place] [address] Care Team Providers Care Ambulance Officer Name Role Phone Unavailable Primary Care Provider Unavailabl e Source Comments Patient records contain information from all sites at [facility]. For routine questions regarding patient records, call [phone] during business hours, M-F 8:00 AM - 5:00 PM Central Time. Record requests for emergency care only can be directed to [phone] at any time.[facility] Encounters Date Type Department Care Team Description 01/17/2024 3:00 PM CDT External Outreach Division of Nephrology and Hypertension in [place], [place] [address] [place] [address] Tejas Randhawa Jr., D.O. Fatigue (Primary Dx); [...] mcg by mouth daily. 3 05/02/2019 Active hsqwusor-yzk-iafc-FA -lutein 8 mg iron-400 mcg-300 mcg tablet [...] often do you attend chur ch or mu-ism services? Never 01/17/2022 Do you belong to any clubs o r organizations such as taoist groups, unions, fraternal or athletic groups, or [...] and heating? Not hard at all 06/17/2023 [facility] - Occupational Stress Questionnaire Answer [...] living situation today? I have a [facility] place to live 06/17/2023 Education Answer Date [...] on file Medical Devices Implanted Type Area Broadcast Meteorologist Device Identifier Shelf Expiration Date Model / Serial / Lot Knee Implant Knee Implant Right: Knee Procedures Procedure Name Priority Date/Time Associated Diagnosis Comments THYROID FUNCTION CASCADE, S Routine 06/07/2019 10:31 AM CDT Inflammatory Bowel Disease from Last 3 Months or Most Recently Relevant to Health Maintenance Results * Thyroid Function [place] (06/07/2019 10:31 AM CDT) TSH, Sensitive 2.4 0.3 - 4.2 mIU/L 06/07/2019 11:38 AM CDT Blood (Blood, Venous) 06/07/2019 10:31 AM CDT 06/07/2019 10:50 AM CDT Corona Riley M.D., M.S. LAB BLOOD ADD -ON [place] [address] from Last 3 Months or Most Recently Relevant to Health Maintenance Advance Directives For more information, please contact: [phone] * Full Code (Latest Code Status on File) Date Activated Date Inactivated Comments 10/05/2019 7:31 PM 10/16/2019 3:21 PM Question Answer Comments Full Code: Discussed * Full Code Date Activated Date Inactivated Comments 10/05/2019 11:16 AM 10/05/2019 7:31 PM Question Answer Comments Full Code: Discussed
--- OUTSIDE RECORDS SUMMARY | 2024-02-16 19:27 | XMS_ITS | Clinical Summary ---
Author Organization [facility] Address [address] [place] [address] Care Team Providers Care Alpine Patroller Name Role Phone Unavailable Primary Care Provider Unavailabl e Source Comments Patient records contain information from all sites at [facility]. For routine questions regarding patient records, call [phone] during business hours, M-F 8:00 AM - 5:00 PM Central Time. Record requests for emergency care only can be directed to [phone] at any time.[facility] Allergies Active Allergy Reactions Criticality Noted Date Comments Lisinopril Other (see comments) 05/24/2018 Pneumococcal Vaccine Other (see comments) 06/07 unknown Pollen Extracts Other (see comments) 06/07/2019 Sulfa (Sulfonamide Antibiotics) Other (see comments) 05/24/2018 Medications Medication Sig Dispensed Refills Start Date End Date Status levothyroxine (SYNTHROID, LEVOTHROID) 88 mcg tablet Take 88 mcg by mouth daily. 3 05/02/2019 Active ovqylyld-jmn-cwgr-FA -lutein 8 mg iron-400 mcg-300 mcg tablet [...] Outreach Division of Nephrology and Hypertension in [place], [place] [address] [place] [address] Tejas Randhawa Jr., D.O. Fatigue (Primary Dx); [...] often do you attend chur ch or muslim services? Never 01/17/2022 Do you belong to any clubs o r organizations such as christianity groups, unions, fraternal or athletic groups, or [...] and heating? Not hard at all 06/17/2023 [facility] - Occupational Stress Questionnaire Answer Date Recorded [...] this topic Medical Devices Implanted Type Area Photovoltaic Installation Technician Device Identifier Shelf Expiration Date Model / Serial / Lot Knee Implant Knee Implant Right: Knee Procedures Procedure Name Priority Date/Time Associated Diagnosis Comments THYROID FUNCTION CASCADE, S Routine 06/07/2019 10:31 AM CDT Inflammatory Bowel Disease from Last 3 Months or Most Recently Relevant to Health Maintenance Results * Thyroid Function [place] (06/07/2019 10:31 AM CDT) TSH, Sensitive 2.4 0.3 - 4.2 mIU/L 06/07/2019 11:38 AM CDT Blood (Blood, Venous) 06/07/2019 10:31 AM CDT 06/07/2019 10:50 AM CDT Corona Riley M.D., M.S. LAB BLOOD ADD -ON [facility] [address] from Last 3 Months or Most Recently Relevant to Health Maintenance Advance Directives For more information, please contact: [phone] * Full Code (Latest Code Status on File) Date Activated Date Inactivated Comments 10/05/2019 7:31 PM 10/16/2019 3:21 PM Question Answer Comments Full Code: Discussed * Full Code Date Activated Date Inactivated Comments 10/05/2019 11:16 AM 10/05/2019 7:31 PM Question Answer Comments Full Code: Discussed
--- OUTSIDE RECORDS SUMMARY | 2024-02-16 19:27 | XMS_ITS ---
Author Organization [facility] Address [address] [place] [address] Care Team Providers Care Store Sales Manager Name Role Phone Unavailable Unavailable Unavailable Surgery Details Not on file Complications Check Surgery Details section. Procedure Estimated Blood Loss Check Surgery Details section. Procedure Findings Check Surgery Details section. Procedure Specimens Taken Check Surgery Details section.
--- OUTSIDE RECORDS SUMMARY | 2024-02-16 19:27 | XMS_ITS | Clinical Summary ---
Author Organization [facility] Address [place], [place] [address] Care Team Providers Care Word Processing Specialist Name Role Phone Namrata Burgess MD Primary [...] by mouth once daily. 0 05/27/2018 Active uhhoufzh-tpu-lfhy-FA- lutein (CENTRUM SILVER WOMEN) 8 mg iron-400 [...] Description 12/10/2023 1:30 PM CDT Office Visit [facility] [address] [place] [address] Virgilio Macias MD Follow Up (feeling) 12/10/2023 [...] 1 - PCV) 2008 COVID-19 vaccine series (2022-24 season) 2023 05/23/2021, 11/30/2020, 11/09/2020 Influenza for age 65+ 05/28/2024 Care Teams Word Processing Specialist Relationship Specialty Start Date End Date Namrata Burgess MD [address] [place] [address] PCP - General Family Practice 05/27/18
--- NOTE | 2024-03-14 08:35 | W.PM.SLEEP ---
Sleep Study Details Details Interpreting Provider: Roxane Date of Sleep Study: 02/16/24 Sleep Study Details: STUDY TYPE:? Home unattended ? BMI:? Not recorded ORDERING PROVIDER:? Roxane INDICATION:? Concern about sleep apnea ? SLEEP SUMMARY:? 408 minutes monitor RESPIRATORY SUMMARY:? AHI 6.0 per CMS guidelines, supine AHI 31.9, right lateral AHI 5.5 Low oxygen 80 17.5% of study oxygen less than 90% Snoring 49.4% PERIODIC LIMB MOVEMENTS OF SLEEP:? Not recorded CARDIAC:? Range 54-87, mean 63.1 IMPRESSION:? 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
== END 2024-02-16 19:24 | disposition home or self-care (01) ==
LOC: SLEEP 19:24
PROVIDERS: PCP Family Medicine; Visit Provider Otolaryngology
DX: G47.33 Obstructive sleep apnea (adult) (pediatric) (principal)
CPT/HCPCS: 95806

== ENCOUNTER 2024-05-09 13:10 | Outpatient (CLI) | payer MEDICARE, SELFPAY ==
--- OUTSIDE RECORDS SUMMARY | 2024-05-11 10:57 | XMS_ITS | Clinical Summary ---
Author Organization [facility] Address [place], [place] [address] Care Team Providers Care Ophthalmic Technician Apprentice Name Role Phone Namrata Burgess MD Primary [...] by mouth once daily. 0 05/27/2018 Active oetyyzpy-ajg-bumk-FA- lutein (CENTRUM SILVER WOMEN) 8 mg iron-400 [...] Encounters Date Type Department Care Team Description 03/03/2024 [facility] [address] [place] [address] Virgilio Macias MD General Illness/Other (Ulcerative colitis) 03/03/2024 [facility] [address] [place] [address] Pcp, No Diarrhea from Last 3 Months Social History Tobacco [...] 11/30/2020, 11/09/2020 Influenza for age 65+ 05/28/2024 Additional Health Concerns Infection Onset Date Last Indicated Rule-Out Stool Pathogen 03/03/2024 03/03/20 24 Care Teams Ophthalmic Technician Apprentice Relationship Specialty Start Date End Date Namrata Burgess MD [address] [place] [address] PCP - General Family Practice 05/27/18
--- OUTSIDE RECORDS SUMMARY | 2024-05-11 10:58 | XMS_ITS | Referral Summary ---
Author Organization [facility] Address [address] [place] [address] Care Team Providers Care Gambling Floor Supervisor Name Role Phone Unavailable Primary Care Provider Unavailabl e Source Comments Patient records contain information from all sites at [facility]. For routine questions regarding patient records, call [phone] during business hours, M-F 8:00 AM - 5:00 PM Central Time. Record requests for emergency care only can be directed to [phone] at any time.[facility] Encounters Date Type Department Care Team Description 04/17/2024 4:00 PM CDT External Outreach Division of Nephrology and Hypertension in [place], [place] [address] [place] [address] Tejas Randhawa Jr., D.O. Chronic Kidney Disease (CKD), Stage 3a Glomerular Filtration Rate (GFR) 45 To 59 (HCC) (Primary Dx); Urolithiasis; Osteodystrophy Renal; Colitis Ulcerative (HCC) from Last 3 Months Allergies Active Allergy Reactions Criticality Noted Date Comments Lisinopril Other (see comments) 05/24/2018 Pneumococcal Vaccine Other (see comments) 06/07 unknown Pollen Extracts Other (see comments) 06/07/2019 Sulfa (Sulfonamide Antibiotics) Other (see comments) 05/24/2018 Medications Medication Sig Dispensed Refills Start Date End Date Status levothyroxine (SYNTHROID, LEVOTHROID) 88 mcg tablet Take 88 mcg by mouth daily. 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 Never 01/17/2022 Do you belong to [...] and heating? Not hard at all 06/17/2023 [facility] [place] of Occupat ional Health - Occupational Stress [...] living situation today? I have a [facility] place to live 06/17/2023 Education Answer [...] Sign Reading Time Taken Comments Blood Pressure 121/59 04/17/2024 4:12 PM CDT Pulse 75 04/17/2024 4:12 PM CDT Temperature 36.4 ??C (97.5 ??F) 06/09/2023 1 2:55 PM CDT Respiratory Rate 14 06/09/2023 12:5 6 PM CDT Oxygen Saturation 96% 06/09/2023 12: 56 PM CDT Inhaled Oxygen Concentration - - Weight 68.4 kg (150 lb 12.7 oz) 04/17/2024 4:12 PM CDT Height 160 cm (5' 2.99) 01/17/2024 3:05 PM CDT Body Mass Index 26.72 01/17/2024 3:05 PM CDT Plan of Treatment Not on file Medical Devices Implanted Type Area Engineer Rf Deployment Device Identifier Shelf Expiration Date Model / Serial / Lot Knee Implant Knee Implant Right: Knee Procedures Procedure Name Priority Date/Time Associated Diagnosis Comments THYROID FUNCTION CASCADE, S Routine 06/07/2019 10:31 AM CDT Inflammatory Bowel Disease from Last 3 Months or Most Recently Relevant to Health Maintenance Results * Thyroid Function [place] (06/07/2019 10:31 AM CDT) TSH, Sensitive 2.4 0.3 - 4.2 mIU/L 06/07/2019 11:38 AM CDT Blood (Blood, Venous) 06/07/2019 10:31 AM CDT 06/07/2019 10:50 AM CDT Corona Riley M.D., M.S. LAB BLOOD ADD -ON [place] [id number] from Last 3 Months or Most Recently Relevant to Health Maintenance Advance Directives For more information, please contact: [phone] * Full Code (Latest Code Status on File) Date Activated Date Inactivated Comments 10/05/2019 7:31 PM 10/16/2019 3:21 PM Question Answer Comments Full Code: Discussed * Full Code Date Activated Date Inactivated Comments 10/05/2019 11:16 AM 10/05/2019 7:31 PM Question Answer Comments Full Code: Discussed
--- OUTSIDE RECORDS SUMMARY | 2024-05-11 10:58 | XMS_ITS | Encounter Summary ---
[facility] Organization [facility] Address [address] [place] [address] Care Team Providers Care Cable Way Operator Name Role Phone Unavailable Primary Care Provider Unavailabl e Reason for Visit * Appointment Request (Routine) - Closed Specialty Diagnoses / Procedures Referred By Contac t Referred To Contact Nephrology and Hypertension Referral ID Status Reason Start Date Expiration Date Visits Re quested Visits Authorized [id number] Closed 03/10/2024 03/10/2025 1 1 Encounter Details Date Type Department Care Team (Latest Contact Info) Description 04/17/2024 4:00 PM CDT External Outreach Division of Nephrology and Hypertension in [place], [place] [address] [place] [address] Tejas Randhawa Jr., D.O. [address] [place] [address] Chronic Kidney Disease (CKD), Stage 3a Glomerular Filtration Rate (GFR) 45 To 59 (HCC) (Primary Dx); Urolithiasis; Osteodystrophy Renal; Colitis Ulcerative (HCC) Social History Tobacco Use [...] How often do you attend chur or restorationist services? Never 01/17/2022 Do you belong to any clubs o r organizations such as caodaism groups, unions, fraternal or athletic groups, or [...] and heating? Not hard at all 06/17/2023 [facility] [place] of Occupat ional Health - Occupational Stress [...] your living situation today? I have a [facility] place to live 06/17/2023 Education Answer [...] Pulse 75 04/17/2024 4:12 PM CDT Temperature - - Respiratory Rate - - Oxygen Saturation - - Inhaled Oxygen Concentration - - Weight 68.4 kg (150 lb 12.7 oz) 04/17/2024 4:12 PM CDT Height - - Body Mass Index 26.72 01/17/2024 3:05 PM CDT documented in this encounter Progress Notes * Tejas Randhawa Jr., Tommie.Kait. - 04/17/2024 4:00 PM CDT Referring Provider: No primary care provider on file. SUBJECTIVE REASON FOR VISIT [facility] Follow-up regards metabolically and surgically indeterminate urolithiasis HISTORY OF PRESENT ILLNESS Ms. Paris is a 78 y.o. female who presents with a prior history of Crohn's disease, now with normal bowel movements, and metabolically and surgically indeterminate urolithiasis, after a bout of surgically active urolithiasis in the spring. Since our visit in December she has had no episodes of flank pain, no hematuria no gravel passage. We reviewed her supersaturation studies and her recent CT scan performed in January which demonstrates no residual urolithiasis. Appreciate that her supersaturation study was done on 13/02 100 cc of urine, her urine sodium was 150 mg, and calcium 250 mg in 24 hours. She is slightly supersaturated for calcium phosphate stones. She has cut back on her calcium plus vitamin-D supplements. She is using potassium citrate, is no longer on hydrochlorothiazide. 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) 06/07/2019 Pyoderma Gangrenosum ([facility]) 05/24/2018 Parastomal Renal Disease Current [...] by mouth daily., Disp: , Rfl: 3 mjbujjbb-xyh-eohd-FA-lutein 8 mg iron-400 mcg-300 mcg tablet, Take [...] systems reviewed and are negative. OBJECTIVE BP 121/59 Pulse 75 Wt 68.4 kg BMI 26.72 kg/m?? PHYSICAL EXAMINATION General: Awake alert oriented [...] suspicious lesions identified Psychiatric: Normal affect DIAGNOSTICS Supersaturation studies reviewed ASSESSMENT / PLAN #1 Chronic Kidney Disease (CKD), Stage 3a Glomerular Filtration Rate (GFR) 45 To 59 (HCC) Her GFR is relatively stable with a serum creatinine level of 1.2 mg/dL. Her BUN is 49 suggesting amild degree of decreased effective circulating volume. Otherwise chemistries are acceptable. Going forward: 1. Goal blood pressures less than 130s over 80s, we will continue on her amlodipine alone. 2. Stay well hydrated-see below 3. No NSAIDs or Flores 2 inhibitors 4. Continue to monitor calcium phosphorus. #2 Urolithiasis This appears to be currently metabolically and surgically inactive. Going forward: 1. Urine dilution efforts, with her drinking total 1 gal of liquid per day 2. Continue on potassium citrate orally daily 3. I believe we can hold off on adding hydrochlorothiazide, although we will review her 24 hour studies once again in pay close attention to her modest hypercalciuria 4. Appreciate her serum oxalate levels are quite low, she has no risk for enteric hyperoxaluria at this point. 5. Low-sodium diet, less than 2000 mg sodium per day 6. Agree with decreasing her calcium plus D supplements. 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 #4 Colitis Ulcerative (HCC) This is quiescent Total time: 30 minutes Counseling Time: 20 minutes Tejas Randhawa Jr., D.O. documented in this encounter Plan of Treatment Not on file documented as of this encounter Visit Diagnoses Diagnosis Chronic Kidney Disease (CKD), Stage 3a Glomerular Filtration Rate (GFR) 45 To 59 (HCC)- Primary Urolithiasis Osteodystrophy Renal Colitis Ulcerative (HCC) documented in this encounter
--- OUTSIDE RECORDS SUMMARY | 2024-05-11 10:58 | XMS_ITS | Clinical Summary ---
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 For routine questions regarding patient records, call [phone] during business hours, M-F 8:00 AM - 5:00 PM Central Time. Record requests for emergency care only can be directed to [phone] at any time.[facility] Allergies Active Allergy Reactions Criticality Noted Date Comments Lisinopril Other (see comments) 05/24/2018 Pneumococcal Vaccine Other (see comments) 06/07 unknown Pollen Extracts Other (see comments) 06/07/2019 Sulfa (Sulfonamide Antibiotics) Other (see comments) 05/24/2018 Medications Medication Sig Dispensed Refills Start Date End Date Status levothyroxine (SYNTHROID, LEVOTHROID) 88 mcg tablet Take 88 mcg by mouth daily. 3 05/02/2019 Active aeodyasd-hok-fwoa-FA -lutein 8 mg iron-400 mcg-300 mcg tablet [...] Outreach Division of Nephrology and Hypertension in [place], [place] [address] [place] [address] Tejas Randhawa Jr., D.O. Chronic Kidney Disease (CKD), Stage 3a Glomerular Filtration Rate (GFR) 45 To 59 (HCC) (Primary Dx); Urolithiasis; Osteodystrophy Renal; Colitis Ulcerative (HCC) from Last 3 Months Immunizations Name Administration [...] often do you attend chur ch or tenriism services? Never 01/17/2022 Do you belong to [...] and heating? Not hard at all 06/17/2023 [facility] [place] of Occupat ional Health - Occupational Stress [...] living situation today? [facility] 06/17/2023 Education Answer [...] (TSH) test for thyroid function 06/07/2020 06/07/2019 COVID-19 Vaccine ( season) 2023 07/14/2023, 02/27/2022, 05/23/2021, Additional history exists Depression Screening (Annual PHQ-2) 09/27/2023 Fall Risk Screen (Annual) 09/27/2023 Influenza Vaccine (#1) 2024 , 09/09/2022, 10/22/2021, Additional history exists Office Visit for Blood Pressure Check / Re-check 04/17/2025 04/17/2024 DTaP,Tdap,and Td Vaccines (3 - Td or Tdap) 02/22/2034 02/23/2024, 07/19/2013 Pneumococcal vaccine (65+ years) Completed 11/01/2015, 06/27/2009 Zoster Vaccines Completed 07/17/2021, 04/23/2021 HPV Vaccines Aged Out No longer eligi ble based on patient's age to complete this topic Medical Devices Implanted Type Area Repair Servicer Device Identifier Shelf Expiration Date Model / Serial / Lot Knee Implant Knee Implant Right: Knee Procedures Procedure Name Priority Date/Time Associated Diagnosis Comments THYROID FUNCTION CASCADE, S Routine 06/07/2019 10:31 AM CDT Inflammatory Bowel Disease from Last 3 Months or Most Recently Relevant to Health Maintenance Results * Thyroid Function [place] (06/07/2019 10:31 AM CDT) TSH, Sensitive 2.4 0.3 - 4.2 mIU/L 06/07/2019 11:38 AM CDT Blood (Blood, Venous) 06/07/2019 10:31 AM CDT 06/07/2019 10:50 AM CDT Corona Riley M.D., M.S. LAB BLOOD ADD -ON [facility] [address] [place] [address], [place] from Last 3 Months or Most Recently Relevant to Health Maintenance Advance Directives For more information, please contact: [phone] * Full Code (Latest Code Status on File) Date Activated Date Inactivated Comments 10/05/2019 7:31 PM 10/16/2019 3:21 PM Question Answer Comments Full Code: Discussed * Full Code Date Activated Date Inactivated Comments 10/05/2019 11:16 AM 10/05/2019 7:31 PM Question Answer Comments Full Code: Discussed
--- OUTSIDE RECORDS SUMMARY | 2024-05-11 10:58 | XMS_ITS ---
Author Organization [facility] Address [address] [place] [address] Care Team Providers Care Mesmerist Name Role Phone Unavailable Unavailable Unavailable Surgery Details Not on file Complications Check Surgery Details section. Procedure Estimated Blood Loss Check Surgery Details section. Procedure Findings Check Surgery Details section. Procedure Specimens Taken Check Surgery Details section.
== END 2024-05-09 13:11 | disposition home or self-care (01) ==
LOC: NFLDREF 05-11 10:56
PROVIDERS: PCP Family Medicine; Referring Provider Family Medicine; Visit Provider Family Medicine
DX: R73.03 Prediabetes (principal); I10 Essential (primary) hypertension; E61.1 Iron deficiency; E53.8 Deficiency of other specified B group vitamins
CPT/HCPCS: 80053; 82607; 82728; 83540; 83550

== ENCOUNTER 2024-06-01 10:30 | Outpatient (RCR) | payer MEDICARE, SELFPAY ==
[2023-12-15 14:15] VITALS: BP 122/62; PULSE 69; RESP 16; TEMP 36.2; O2SAT 96
[2023-12-15] MEDS: VEDOLIZUMAB 300 MG, TUBING SECONDARY 1 EACH in 0.9 % SODIUM CHLORIDE 250 ml 250 ML 510 MG IVPB (14:51)
--- NOTE | 2023-12-22 09:56 | URNOTE ---
Prior auth is not required for [place] ([id number]). Pt has Medicare/AARP supplement. Services are based on medical necessity and follow medicare guidelines.
[2024-01-14 13:36] VITALS: BP 146/72; PULSE 53; RESP 16; TEMP 36.6; O2SAT 97
[2024-01-14] MEDS: VEDOLIZUMAB 300 MG, TUBING SECONDARY 1 EACH in 0.9 % SODIUM CHLORIDE 250 ml 250 ML 510 MG IVPB (14:06)
[2024-02-10 10:31] VITALS: BP 140/72; PULSE 64; RESP 16; TEMP 36; O2SAT 97
[2024-02-10] MEDS: VEDOLIZUMAB 300 MG, TUBING SECONDARY 1 EACH in 0.9 % SODIUM CHLORIDE 250 ml 250 ML 510 MG IVPB (11:19)
[2024-02-10] MEDS: 0.9 % SODIUM CHLORIDE 250 ml IV (12:58)
[2024-02-10] MEDS: SODIUM CHLORIDE 0.9 % (FLUSH) 10 ML SYRINGE IVF (12:58)
[2024-03-09 11:40] VITALS: BP 133/86; PULSE 64; RESP 16; TEMP 36; O2SAT 97
[2024-03-09] MEDS: SODIUM CHLORIDE 0.9 % (FLUSH) 10 ML SYRINGE IVF (12:07)
[2024-03-09] MEDS: VEDOLIZUMAB 300 MG, TUBING SECONDARY 1 EACH in 0.9 % SODIUM CHLORIDE 250 ml 250 ML 510 MG IVPB (12:07)
[2024-03-09] MEDS: 0.9 % SODIUM CHLORIDE 250 ml IV (12:07)
[2024-03-09 12:46] VITALS: BP 129/77; PULSE 63; RESP 16; TEMP 36.1; O2SAT 95
[2024-04-06 10:46] VITALS: BP 118/73; PULSE 66; RESP 16; TEMP 36.1; O2SAT 95
[2024-04-06] MEDS: VEDOLIZUMAB 300 MG, TUBING SECONDARY 1 EACH in 0.9 % SODIUM CHLORIDE 250 ml 250 ML 510 MG IVPB (11:14)
[2024-05-04 10:25] VITALS: BP 118/69; PULSE 68; RESP 16; TEMP 36.2; O2SAT 95
[2024-05-04] MEDS: VEDOLIZUMAB 300 MG, TUBING SECONDARY 1 EACH in 0.9 % SODIUM CHLORIDE 250 ml 250 ML 510 MG IVPB (10:39)
[2024-05-04] MEDS: 0.9 % SODIUM CHLORIDE 250 ml 250 ML 35 ML IV (10:39)
[2024-05-04] MEDS: SODIUM CHLORIDE 0.9 % (FLUSH) 10 ML SYRINGE IVF (10:39)
[2024-06-01 10:30] VITALS: BP 127/76; PULSE 63; RESP 16; TEMP 36.2; O2SAT 94
[2024-06-01] MEDS: VEDOLIZUMAB 300 MG, TUBING SECONDARY 1 EACH in 0.9 % SODIUM CHLORIDE 250 ml 250 ML 510 MG IVPB (11:10)
[2024-06-01] MEDS: 0.9 % SODIUM CHLORIDE 250 ml IV (11:11)
== END 2024-06-12 23:59 | disposition home or self-care (01) ==
LOC: CCIC 10:30
PROVIDERS: PCP Family Medicine; Referring Provider Family Medicine; Visit Provider Internal Medicine Gastroenterology
DX: K51.90 Ulcerative colitis, unspecified, without complications (principal)
CPT/HCPCS: 96365; J3380; J7050

== ENCOUNTER 2024-10-17 14:05 | Outpatient (CLI) | payer MEDICARE, SELFPAY | END 2024-10-17 14:06 | disposition home or self-care (01) | LOC: NFLDREF 10-18 01:42 | PROVIDERS: PCP Family Medicine; Referring Provider Family Medicine; Visit Provider Internal Medicine Nephrology | DX: I12.9 Hypertensive chronic kidney disease with stage 1 through stage 4 chronic kidney disease, or unspecified chronic kidney disease (principal); N18.32 Chronic kidney disease, stage 3b; N20.0 Calculus of kidney | CPT/HCPCS: 80069; 83970; 84550 ==

== ENCOUNTER 2024-10-24 13:00 | Outpatient (CLI) | payer MEDICARE, SELFPAY | END 2024-10-24 13:01 | disposition home or self-care (01) | LOC: NFLDREF 10-31 23:56 | PROVIDERS: PCP Family Medicine; Referring Provider Family Medicine; Visit Provider Internal Medicine Nephrology | DX: N39.0 Urinary tract infection, site not specified (principal); I12.9 Hypertensive chronic kidney disease with stage 1 through stage 4 chronic kidney disease, or unspecified chronic kidney disease; N18.32 Chronic kidney disease, stage 3b | CPT/HCPCS: 82340; 82436; 82507; 83735; 83945; 83986; 84105; 84133; 84300; 84392; 84560 ==

== ENCOUNTER 2024-11-21 08:25 | Outpatient (CLI) | payer MEDICARE, SELFPAY | END 2024-11-21 08:26 | disposition home or self-care (01) | LOC: NFLDREF 11-22 08:55 | PROVIDERS: PCP Family Medicine; Referring Provider Family Medicine; Visit Provider Family Medicine | DX: E53.8 Deficiency of other specified B group vitamins (principal); I10 Essential (primary) hypertension; R73.03 Prediabetes; N18.32 Chronic kidney disease, stage 3b; E03.9 Hypothyroidism, unspecified; M81.0 Age-related osteoporosis without current pathological fracture; E61.1 Iron deficiency | CPT/HCPCS: 80053; 82306; 82607; 82728; 84443 ==

== ENCOUNTER 2024-12-12 13:30 | Outpatient (RCR) | payer MEDICARE, SELFPAY ==
[2024-06-29 10:29] VITALS: BP 140/73; PULSE 65; RESP 16; TEMP 36.5; O2SAT 96
[2024-06-29] MEDS: VEDOLIZUMAB 300 MG, TUBING SECONDARY 1 EACH in 0.9 % SODIUM CHLORIDE 250 ml 250 ML 510 MG IVPB (11:08)
[2024-07-27 10:04] VITALS: BP 165/79; PULSE 68; RESP 16; TEMP 36; O2SAT 96
[2024-07-27] MEDS: VEDOLIZUMAB 300 MG, TUBING SECONDARY 1 EACH in 0.9 % SODIUM CHLORIDE 250 ml 250 ML 510 MG IVPB (10:54)
[2024-08-25 10:46] VITALS: BP 149/63; PULSE 62; RESP 16; TEMP 37.1; O2SAT 95
[2024-08-25] MEDS: SODIUM CHLORIDE 0.9 % (FLUSH) 10 ML SYRINGE IVF (11:00)
[2024-08-25] MEDS: 0.9 % SODIUM CHLORIDE 500 ML 20 ML IV (11:03)
[2024-08-25] MEDS: VEDOLIZUMAB 300 MG, TUBING SECONDARY 1 EACH in 0.9 % SODIUM CHLORIDE 250 ml 250 ML 510 MG IVPB (11:24)
--- OUTSIDE RECORDS SUMMARY | 2024-09-21 07:07 | XMS_ITS | Continuity of Care Document ---
Author Organization [facility] Address [address] [place] [address] Assessment Encounter Date Assessment Date Assessment LastModified by Organization Details LastModified Time 08/31/2024 08/31/2024 ASSESSMENT: Patient is a good candidate for conservative care and the prognosis is for a favorable outcome that achieves the patients' goals. We discussed etiology, activity modifications, home care, and other treatment options. Initially, it is recommended that the patient receive in-office treatment 1 times per week for 8 weeks at which time a re-evaluation will be performed to determine an appropriate change in plan. Initially, treatment will focus on joint manipulation to restore range of motion and reduce pain. We will slowly progress to therapeutic exercises and activities to improve function, strength, and stability may also be used as warranted. If the patient is not responding as expected, more invasive procedures will be discussed along with a referral. All considerations above were discussed with the patient and questions answered to satisfaction. If the patient should have any additional questions, or should the condition evolve or worsen, the patient should not hesitate to contact our office. [email or web address] Not available 08/31/2024 17:36:55 Plan of Treatment Reminders Order Date Submit Date Provider Last Modified By Organization Details Last Modified Time Details Appointments DC Treatment 2024 02:00P Janeen Rangel DC Not available Not available Not available Lab None recorded. Referral None recorded. Procedures None recorded. Surgeries None recorded. Imaging None recorded. Medication Orders None recorded. Patient TargetsNo targets recorded. Patient InstructionsNo instructions recorded. Reason for Referral None Reported. Problems Name Problem SNOMED Code Status Onset Date Resolution Date Notes Provider Name and Address Organization Details Recorded Time Thoracic segmental dysfunction 099106539 Active 2023 Not Available [facility] 12/06/202 4 11:08:12 Lumbar segmental dysfunction 708371703 Active 2023 Not Available [facility] 4 11:08:12 Low back pain 423899939 Active 2023 Abhay Rangel DC [address], [place], [address] , [facility] 4 17:36:56 Somatic dysfunction of sacral spine 590754647 Active 2023 Not Available [facility] 4 11:08:12 Problem Notes None recorded. Procedures Surgical History Date Name Laterality Status Provider Name and Address Organization Details Recorded Time 4 91537: Spinal manipulation , 3 to 4 regions completed Abhay Rangel DC [address], [place], [address], [facility] 08/31/2024 17:37:34 Imaging Results None recorded. Procedure Notes None recorded. Medical Equipment None Reported. Medications Name Sig Start Date Stop Date Status Note LastModified by Organization Details LastModified Time amoxicillin 500 mg capsule active Not Available Not Available Not Available amlodipine 5 mg tablet TAKE 1 TABLET BY MOUTH EVERY DAY active Not Available Not Available No t Available levothyroxin e 100 mcg tablet TAKE 1 TABLET BY MOUTH EVERY DAY active Not Available Not Available No t Available amoxicillin 875 mg tablet TAKE 1 TABLET BY MOUTH TWICE A DAY active Not Available Not Available No t Available tamsulosin 0.4 mg capsule TAKE 1 CAPSULE BY MOUTH DAILY active Not Available Not Available Not Available gabapentin 100 mg capsule PLEASE SEE ATTACHED FOR DETAILED DIRECTIONS active Not Available Not Available N ot Available fluticasone propionate 50 mcg/actuatio n nasal spray,suspen lorie SPRAY 2 SPRAYS EACH NOSTRIL ONCE A DAY active Not Available Not Available N ot Available potassium citrate ER 5 mEq (540 mg) tablet,exten ded release TAKE 4 TABLETS ORALLY DAILY active Not Available Not Available No t Available Vitals None Recorded Social History None recorded. Functional Status None recorded. Mental Status None recorded. Family History Nothing Reported. Medical History No medical history recorded. Gynecological HistoryNo gynecological history recorded. Obstetrics History GPAL:G 0 P 0 0 0 0 Past Encounters Encounter ID Performer Location Encounter Start Date Encounter Closed Date Diagnosis/Indication Diagnosis SNOMED-CT Code Diagnosis ICD10 Code [id number] Abhay Rangel DC [facility] [address] [place] [address] 08/31/2024 14:29:59 08/31/2024 17:47:42 Lumbar segmental dysfunction 611287787 M99.03 Low back pain 782608779 M54.50 Somatic dy sfunction of sacral spine 311885355 M99.04 Thoracic s egmental dysfunction 521657122 M99.02 Health Concerns Section Related Observation LastModified by Organization Detai ls LastModified Time None Recorded Concern Status LastModified by Organization Details LastModified Time None Recorded Payers Encounter Date Sequence Insurance Name Policy Number Policy Carter Covered Member ID Carter Member ID Guarantor Name 08/31/2024 1 MEDIC[place]: [employer] Petra Paris [id number] Petra Paris 08/31/2024 2 [facility] HEALTHCARE OPTIONS (MEDICARE SUPPLEMENT) Petra Paris [id number] Petra Paris Notes Date Note Type Note Provider Name and Address Organization Details Recorded Time 08/31/2024 text/html HPI - Cervical SpineReported bypatient.Location: left Quality:aching Severity:moderate Duration:2 weeks Timing:gradual Alleviating Factors:ice Aggravating Factors:sitting Associated Symptoms:no numbness/tingling Abhay Rangel DC [address], [place], [address], [place] [facility] 08/31/2024 17:37:59 OBGyn Episode No OBEpisode recorded.
--- OUTSIDE RECORDS SUMMARY | 2024-09-21 07:07 | XMS_ITS | Data Portability ---
Author Organization [place] [facility] Address [address] [place] [address] Assessment Encounter Date Assessment Date Assessment LastModified [...] Organization Details Recorded Time Thoracic segmental dysfunction 585761210 Active 2023 Not Available [facility] 4 11:08:12 Lumbar segmental dysfunction 386741315 Active 2023 Not Available [facility] 4 11:08:12 Low back pain 178309282 Active 2023 Abhay Rangel DC [address], [place], [address] , [facility] 4 17:36:56 Somatic dysfunction of sacral spine 818526710 Active 2023 Not Available [facility] 4 11:08:12 Problem Notes None recorded. Procedures Surgical History Date Name Laterality Status Provider Name and Address Organization Details Recorded Time 4 32206: Spinal manipulation , 3 to 4 regions completed Abhay Rangel DC [address], [place], [address], [facility] 08/31/2024 17:37:34 Imaging Results None recorded. Procedure [...] Diagnosis/Indication Diagnosis SNOMED-CT Code Diagnosis ICD10 Code [id number] Abhay Rangel DC [facility] [address] [place] [address] 08/31/2024 14:29:59 08/31/2024 17:47:42 Lumbar segmental dysfunction 241805333 M99.03 Low back pain 487461724 M54.50 Somatic dy sfunction of sacral spine 179977201 M99.04 Thoracic s egmental dysfunction 875355694 M99.02 Health Concerns Section Related Observation LastModified by Organization Detai ls LastModified Time None Recorded Concern Status LastModified by Organization Details LastModified Time None Recorded Advance Directives Directive None Recorded Payers Encounter Date Sequence Insurance Name Policy Number Policy Carter Covered Member ID Carter Member ID Guarantor Name 08/31/2024 1 MEDICARE [place]: [facility] [employer] Petra Paris [id number] Petra Paris 08/31/2024 2 [employer] HEALTHCARE OPTIONS (MEDICARE SUPPLEMENT) Petra Paris [id number] Petra Paris Notes Date Note Type Note Provider Name and Address Organization Details Recorded Time 08/31/2024 text/html HPI - Cervical SpineReported bypatient.Location: left Quality:aching Severity:moderate Duration:2 weeks Timing:gradual Alleviating Factors:ice Aggravating Factors:sitting Associated Symptoms:no numbness/tingling Abhay Ragnel DC [address], [place], [address], [place] [facility] 08/31/2024 17:37:59 OBGyn Episode No OBEpisode recorded.
[2024-09-21 10:51] VITALS: BP 139/83; PULSE 64; RESP 16; TEMP 37.1; O2SAT 97
[2024-09-21] MEDS: SODIUM CHLORIDE 0.9 % (FLUSH) 10 ML SYRINGE IVF (10:53)
[2024-09-21] MEDS: VEDOLIZUMAB 300 MG, TUBING SECONDARY 1 EACH in 0.9 % SODIUM CHLORIDE 250 ml 250 ML 510 MG IVPB (11:23)
[2024-09-21] MEDS: 0.9 % SODIUM CHLORIDE 500 ML 20 ML IV (11:28)
[2024-10-19 10:30] VITALS: BP 132/75; PULSE 60; RESP 16; TEMP 36.4; O2SAT 96
[2024-10-19] MEDS: 0.9 % SODIUM CHLORIDE 500 ML 20 ML IV (11:14)
[2024-10-19] MEDS: VEDOLIZUMAB 300 MG, TUBING SECONDARY 1 EACH in 0.9 % SODIUM CHLORIDE 250 ml 250 ML 510 MG IVPB (11:14)
[2024-10-19] MEDS: SODIUM CHLORIDE 0.9 % (FLUSH) 10 ML SYRINGE IVF (11:14)
[2024-11-16 10:24] VITALS: BP 139/80; PULSE 60; RESP 16; TEMP 36.3; O2SAT 98
[2024-11-16] MEDS: SODIUM CHLORIDE 0.9 % (FLUSH) 10 ML SYRINGE IVF (11:10)
[2024-11-16] MEDS: 0.9 % SODIUM CHLORIDE 500 ML 20 ML IV (11:15)
[2024-11-16] MEDS: VEDOLIZUMAB 300 MG, TUBING SECONDARY 1 EACH in 0.9 % SODIUM CHLORIDE 250 ml 250 ML 510 MG IVPB (11:21)
--- NOTE | 2024-11-16 12:33 | ONC.NURNOTE ---
Patient needs new orders prior to next infusion on 12/13. Order sheet faxed to Dr. Macias's office. Patient reports she is seeing him on 12/07.
--- NOTE | 2024-12-08 12:55 | URNOTE ---
Prior auth is not required for Vedolizumab (Entyvio) (J3380). Pt has Medicare/AARP supplement (active plan). Services are based on medical necessity and follow medicare guidelines.
[2024-12-12 13:00] VITALS: BP 144/81; PULSE 76; RESP 16; TEMP 35.9; O2SAT 97
[2024-12-12] MEDS: VEDOLIZUMAB 300 MG, TUBING SECONDARY 1 EACH in 0.9 % SODIUM CHLORIDE 250 ml 250 ML 510 MG IVPB (13:45)
[2024-12-12] MEDS: SODIUM CHLORIDE 0.9 % (FLUSH) 10 ML SYRINGE IVF (13:46)
== END 2024-12-26 23:59 | disposition home or self-care (01) ==
LOC: CCIC 13:30
PROVIDERS: PCP Family Medicine; Referring Provider Family Medicine; Visit Provider Clinical Nurse Specialist
DX: K51.90 Ulcerative colitis, unspecified, without complications (principal)
CPT/HCPCS: 96365; J3380; J7030; J7050

== ENCOUNTER 2025-02-21 13:41 | Outpatient (CLI) | payer MEDICARE, SELFPAY ==
--- NOTE | 2025-02-21 14:00 | CRLHL7_ITS ---
For Patients: As a result of the Century Cures Act, medical imaging exams and procedure reports are released immediately into your electronic medical record. You may view this report before your referring provider. If you have questions, please contact your health care provider. Indication: LT SIDED PAIN, HX OF CHRONIC KIDNEY DISEASE, HX OF URINARY CALCULUS Technique: Noncontrast CT abdomen and pelvis Please note that all CT scans at this facility use dose modulation, iterative reconstruction, and/or weight-based dosing when appropriate to reduce radiation dose to as low as reasonably achievable. Comparison: 02/08/2024 Findings: No renal or ureteral calculi. No hydronephrosis or hydroureter. No bladder stone. Scarring at the right lung base is unchanged. No pleural effusion. Noncontrast enhanced liver and spleen are similar. Atherosclerotic changes. No adrenal nodule. Pancreas is unremarkable. Gallstones again noted measuring up to 2 cm. No adenopathy. No free air or free fluid. No abscess. No hernia. Leftward curvature of the lumbar spine. Multilevel degenerative disc disease and facet degeneration. No vertebral body compression fracture. No bowel obstruction. Impression: No acute findings. No significant change. Please note that all CT scans at this facility use dose modulation, iterative reconstruction, and/or weight-based dosing when appropriate to reduce radiation dose to as low as reasonably achievable. Dictated by Parvez Brooks MD @ 02/22/2025 10:52:58 AM (Electronically Signed)
== END 2025-02-21 13:42 | disposition home or self-care (01) ==
LOC: CT 13:44
PROVIDERS: PCP Family Medicine; Visit Provider Internal Medicine Nephrology
DX: R10.9 Unspecified abdominal pain (principal); N18.9 Chronic kidney disease, unspecified; N20.9 Urinary calculus, unspecified
CPT/HCPCS: 74176

== ENCOUNTER 2025-03-16 15:26 | Outpatient (CLI) | payer MEDICARE, SELFPAY | END 2025-03-16 15:27 | disposition home or self-care (01) | PROVIDERS: PCP Family Medicine; Visit Provider Family Medicine | DX: R20.8 Other disturbances of skin sensation (principal); E03.9 Hypothyroidism, unspecified; N18.32 Chronic kidney disease, stage 3b; G62.9 Polyneuropathy, unspecified; G25.81 Restless legs syndrome | CPT/HCPCS: 80048; 82607; 82728; 84443 ==

== ENCOUNTER 2025-04-11 14:32 | Outpatient (CLI) | payer MEDICARE, SELFPAY | END 2025-04-11 14:33 | disposition home or self-care (01) | LOC: NFLDREF 04-13 02:57 | PROVIDERS: PCP Family Medicine; Referring Provider Family Medicine; Visit Provider Internal Medicine Nephrology | DX: I10 Essential (primary) hypertension (principal); N20.9 Urinary calculus, unspecified; N18.32 Chronic kidney disease, stage 3b; R73.03 Prediabetes; R20.8 Other disturbances of skin sensation | CPT/HCPCS: 80069; 82043; 82570; 83970; 84550; 87086 ==

== ENCOUNTER 2025-04-16 10:24 | Outpatient (CLI) | payer MEDICARE, SELFPAY | END 2025-04-16 10:25 | disposition home or self-care (01) | LOC: NFLDREF 04-17 13:06 | PROVIDERS: PCP Family Medicine; Referring Provider Family Medicine | DX: N30.01 Acute cystitis with hematuria (principal) | CPT/HCPCS: 87086 ==

== ENCOUNTER 2025-05-18 14:03 | Outpatient (CLI) | payer MEDICARE, SELFPAY | END 2025-05-18 14:04 | disposition home or self-care (01) | LOC: NFLDREF 05-22 17:14 | PROVIDERS: PCP Family Medicine; Referring Provider Family Medicine; Visit Provider Family Medicine | DX: I12.9 Hypertensive chronic kidney disease with stage 1 through stage 4 chronic kidney disease, or unspecified chronic kidney disease (principal); N18.32 Chronic kidney disease, stage 3b; R73.03 Prediabetes; D64.9 Anemia, unspecified | CPT/HCPCS: 80053; 82728 ==

== ENCOUNTER 2025-05-22 14:21 | Outpatient (CLI) | payer MEDICARE, SELFPAY | END 2025-05-22 14:22 | disposition home or self-care (01) | LOC: NFLDREF 14:22 | PROVIDERS: PCP Family Medicine; Visit Provider Family Medicine | DX: R30.0 Dysuria (principal) | CPT/HCPCS: 87086 ==

== ENCOUNTER 2025-06-27 13:00 | Outpatient (RCR) | payer MEDICARE, SELFPAY ==
[2025-01-10 13:09] VITALS: BP 128/69; PULSE 68; RESP 24; TEMP 35.7; O2SAT 95
[2025-01-10] MEDS: SODIUM CHLORIDE 0.9 % (FLUSH) 10 ML SYRINGE IVF (13:45)
[2025-01-10] MEDS: VEDOLIZUMAB 300 MG, TUBING SECONDARY 1 EACH in 0.9 % SODIUM CHLORIDE 250 ml 250 ML 510 MG IVPB (13:57)
[2025-02-07 13:05] VITALS: BP 132/70; PULSE 57; RESP 18; TEMP 36.4; O2SAT 97
[2025-02-07] MEDS: SODIUM CHLORIDE 0.9 % (FLUSH) 10 ML SYRINGE IVF (13:35)
[2025-02-07] MEDS: VEDOLIZUMAB 300 MG, TUBING SECONDARY 1 EACH in 0.9 % SODIUM CHLORIDE 250 ml 250 ML 510 MG IVPB (13:44)
[2025-03-07 12:57] VITALS: BP 134/77; PULSE 79; RESP 16; TEMP 36.6; O2SAT 96
[2025-03-07] MEDS: VEDOLIZUMAB 300 MG, TUBING SECONDARY 1 EACH in 0.9 % SODIUM CHLORIDE 250 ml 250 ML 510 MG IVPB (13:45)
[2025-03-07] MEDS: SODIUM CHLORIDE 0.9 % (FLUSH) 10 ML SYRINGE IVF (13:45)
[2025-04-04 13:00] VITALS: BP 126/74; PULSE 73; RESP 18; TEMP 36; O2SAT 97
[2025-04-04] MEDS: SODIUM CHLORIDE 0.9 % (FLUSH) 10 ML SYRINGE IVF (13:25)
[2025-04-04] MEDS: VEDOLIZUMAB 300 MG, TUBING SECONDARY 1 EACH in 0.9 % SODIUM CHLORIDE 250 ml 250 ML 510 MG IVPB (13:32)
[2025-05-02 13:00] VITALS: BP 147/56; PULSE 71; RESP 16; TEMP 36.6; O2SAT 96
[2025-05-02] MEDS: VEDOLIZUMAB 300 MG, TUBING SECONDARY 1 EACH in 0.9 % SODIUM CHLORIDE 250 ml 250 ML 510 MG IVPB (13:27)
[2025-05-30 13:00] VITALS: BP 138/62; PULSE 92; RESP 16; TEMP 36.6; O2SAT 92
[2025-05-30] MEDS: VEDOLIZUMAB 300 MG, TUBING SECONDARY 1 EACH in 0.9 % SODIUM CHLORIDE 250 ml 250 ML 510 MG IVPB (13:35)
[2025-06-27 12:55] VITALS: BP 131/68; PULSE 71; RESP 16; TEMP 36.6; O2SAT 95
[2025-06-27] MEDS: SODIUM CHLORIDE 0.9 % (FLUSH) 10 ML SYRINGE IVF (13:08)
[2025-06-27] MEDS: VEDOLIZUMAB 300 MG, TUBING SECONDARY 1 EACH in 0.9 % SODIUM CHLORIDE 250 ml 250 ML 510 MG IVPB (13:15)
== END 2025-07-09 23:59 | disposition home or self-care (01) ==
LOC: CCIC 13:00
PROVIDERS: PCP Family Medicine; Referring Provider Family Medicine; Visit Provider Clinical Nurse Specialist
DX: K51.90 Ulcerative colitis, unspecified, without complications (principal)
CPT/HCPCS: 96365; J3380; J7050